=== PATIENT | female | born 1940 | race Caucasian/White ===

== ENCOUNTER 2016-07-18 05:34 | Inpatient (IN) | payer MEDICARE ==
--- NOTE | 2016-07-18 06:13 | ED PDOC ---
HPI: General Adult Time Seen by Provider: 07/18/16 05:39 Chief Complaint (Nursing): Hip Pain Chief Complaint (Provider): left groin pain History Per: Patient History/Exam Limitations: no limitations Onset/Duration Of Symptoms: Hrs (24) Have you had recent travel within the past 21 days to any of the following countries: [place], [place], [place] or [place]?: No Current Symptoms Are (Timing): Still Present Additional Complaint(s): 75yo female with PMHx including previous left humerus and left lower extremity fracture treated 1 year ago at [place] requiring surgery presents to the ED with c/o left groin pain s/p mechanical fall in bathroom 24 hours prior. No LOC or head injury per daughter who was at home. Patient is having trouble bearing weight. Using Aleve and pain patch with no relief. Daughter reports patient's deterioration in mental status including being confused at times with unsteady gait. Refuses to use cane to ambulate and patient become delusional with paranoid thoughts at times. On arrival to ED, patient is alert and disoriented to year. Aware of who president is and is only complaining of groin pain. No headache, chest pain, fever, cough, SOB, n/v/d. Past Medical History Reviewed: Historical Data, Nursing Documentation, Vital Signs Vital Signs: Last Vital Signs Temp 98 F 07/18/16 16:14 Pulse 76 07/18/16 16:14 Resp 20 07/18/16 16:14 BP 148/82 07/18/16 16:14 Pulse Ox 92 L 07/18/16 16:14 - Medical History PMH: No Chronic Diseases Other PMH: left humerus fracture - Surgical History Surgical History: Cholecystectomy Other surgeries: left humerus fracture repair. left knee surgery - Family History Family History: States: No Known Family Hx - Living Arrangements Living Arrangements: With Family (with daughter on 4th floor walkup) - Social History Current smoker - smoking cessation education provided: No Alcohol: None Drugs: Denies - Home Medications Home Medications: Ambulatory Orders Medication Instructions Recorded No Known Home Med 07/18/16 - Allergies Allergies/Adverse Reactions: Allergies Allergy/AdvReac Type Severity Reaction Status Date / Time No Known Allergies Allergy Verified 12/29/15 10:30 Review of Systems ROS Statement: Except As Marked, All Systems Reviewed And Found Negative Constitutional: Negative for: Fever Cardiovascular: Negative for: Chest Pain Respiratory: Negative for: Cough, Shortness of Breath Gastrointestinal: Negative for: Nausea, Vomiting, Diarrhea Musculoskeletal: Positive for: Other (left groin pain ) Neurological: Negative for: Headache Physical Exam - Reviewed Nursing Documentation Reviewed: Yes Vital Signs Reviewed: Yes - Physical Exam Appears: Positive for: Well, No Acute Distress Head Exam: Positive for: ATRAUMATIC, NORMAL INSPECTION, NORMOCEPHALIC Skin: Positive for: Normal Color, Warm, Dry Eye Exam: Positive for: Normal appearance, EOMI, PERRL ENT: Positive for: Normal ENT Inspection Neck: Positive for: Normal, Painless ROM, Supple Cardiovascular/Chest: Positive for: Regular Rate, Rhythm. Negative for: Murmur , Tachycardia Respiratory: Positive for: Normal Breath Sounds. Negative for: Wheezing, Respiratory Distress Gastrointestinal/Abdominal: Positive for: Normal Exam, Bowel Sounds, Soft. Negative for: Tenderness Back: Positive for: Normal Inspection. Negative for: L CVA Tenderness, R CVA Tenderness Extremity: Positive for: Tenderness (left groin tenderness), Other (able to raise leg to 30 degrees and then develops pain ). Negative for: Deformity Neurologic/Psych: Positive for: Alert, Oriented - Laboratory Results Result Diagrams: 07/18/16 06:00 07/18/16 06:00 - ECG O2 Sat by Pulse Oximetry: 99 Pulse Ox Interpretation: Normal (RA) Medical Decision Making Medical Decision Makin: Impression: 75yo female w/ left groin pain in setting of fall and clinical dementia Plan: EKG Labs IVF XR Pelvis, CXR reassess Pt s/o to Dr. Duron at 0700 pending labs and re-eval. Scribe Attestation: Documented by Manuel Ortez acting as a scribe for Johnathan De Jesus MD. Provider Scribe Attestation: All medical record entries made by the Scribe were at my direction and personally dictated by me. I have reviewed the chart and agree that the record accurately reflects my personal performance of the history, physical exam, medical decision making, and the department course for this patient. I have also personally directed, reviewed, and agree with the discharge instructions and disposition. Disposition - Clinical Impression Clinical Impression: Hip pain, Altered mental status - Patient ED Disposition Is Patient to be Admitted: Transfer of Care - Disposition Disposition: Transfer of Care Disposition Time: 07:00 Condition: FAIR Patient Signed Over To: John Duron Handoff Comments: pending labs and re-eval
[2016-07-18 06:19] LABS: BASO % 0.4 % (0.0-2.0); EOS # 0.1 K/uL (0.0-0.7); EOS % 0.5 % (0.0-4.0); HEMATOCRIT 39.8 % (34.0-47.0); LYMPH # 1.3 K/uL (1.0-4.3); LYMPH % 13.6 % (20.0-40.0); MEAN CELL VOLUME 89.4 fl (81.0-99.0); MEAN CORPUSCULAR HEMOGLOBIN 29.6 pg (27.0-31.0); MEAN CORPUSCULAR HGB CONC 33.1 g/dL (33.0-37.0); MEAN PLATELET VOLUME 7.7 fl (7.2-11.7); MONO # 0.8 K/uL (0.0-0.8); MONO % 7.7 % (0.0-10.0); NEUT # 7.5 K/uL (1.8-7.0); NEUT % 77.8 % (50.0-75.0); RED CELL DISTRIBUTION WIDTH 15.5 % (11.5-14.5); WHITE BLOOD COUNT 9.7 K/uL (4.8-10.8)
[2016-07-18 06:44] LABS: RBC URINE 7 /hpf (0-3); URINE BILIRUBIN NEGATIVE (NEGATIVE); URINE BLOOD NEGATIVE (NEGATIVE); URINE COLOR YELLOW (YELLOW); URINE GLUCOSE (UA) NEG (Normal); URINE KETONE NEGATIVE (NEGATIVE); URINE LEUKOCYTE ESTERASE TRACE Leu/uL (Negative); URINE PROTEIN NEGATIVE (NEGATIVE); URINE UROBILINOGEN 0.2-1.0 mg/dL (0.2-1.0); WBC URINE 2 /hpf (0-5)
--- NOTE | 2016-07-18 07:02 | ED PDOC ---
- Laboratory Results Result Diagrams: 07/18/16 06:00 07/18/16 06:00 - ECG O2 Sat by Pulse Oximetry: 99 Medical Decision Making Medical Decision Making: Time: 0700 Patient signed out by Dr. De Jeuss pending labs and re-evaluation Scribe Attestation: Documented by Ruby Ramirez acting as a scribe for John Duron MD, MD Scribe Attestation: All medical record entries made by the Scribe were at my direction and personally dictated by me. I have reviewed the chart and agree that the record accurately reflects my personal performance of the history, physical exam, medical decision making, and the department course for this patient. I have also personally directed, reviewed, and agree with the discharge instructions and disposition. Disposition - Clinical Impression Clinical Impression: Hip pain, Altered mental status - POA Present On Arrival: None - Disposition Disposition: Hospitalized as Observation Patient Disposition Time: 12:00 Condition: STABLE ED OBSERVATION Date of observation admission: 07/18/16 Time of observation admission: 07:30 - Observation admission statement Patient is being placed in observation because:: Pending labs and re-evaluation - Progress Note Progress Note: 07/18/16 12:00 Spoke with daughter in refards to patient, states she does not feel comfortable with taking her home. Notes she lives alone with a history of frequent fall. Dr. Helms contacted, recommends admission. Case discussed with Dr. Malone who will give admission ordes. U/S findings discussed with patient and family. Advised Dr. Malone of patients need for pain medication and muscle relaxers at night.
[2016-07-18 08:12] LABS: ALB/GLOB RATIO 1.1 (1.0-2.1); ALKALINE PHOSPHATASE 108 U/L (38-126); ALT/SGPT 20 U/L (9-52); AST/SGOT 24 U/L (14-36); BILIRUBIN,TOTAL 0.5 mg/dl (0.2-1.3); BLOOD UREA NITROGEN 12 mg/dl (7-17); CALCIUM 9.8 mg/dL (8.4-10.2); CARBON DIOXIDE 25 mmol/L (22-30); CHLORIDE 105 mmol/L (98-107); GFR AFRICAN-AMERICAN > 60; GLUCOSE,RANDOM 142 mg/dL (65-105); SODIUM 144 mmol/l (132-148)
--- NOTE | 2016-07-18 08:16 | CT ---
PROCEDURE: CT HEAD WITHOUT CONTRAST. HISTORY: AMS COMPARISON: None available. TECHNIQUE: Axial computed tomography images were obtained through the head/brain without intravenous contrast. Radiation dose: Total exam DLP = 874.06 mGy-cm. FINDINGS: HEMORRHAGE: No intracranial hemorrhage. BRAIN: No mass effect or edema. Old right frontal encephalomalacia. Mild diffuse atrophy. Moderate periventricular lucency with patchy deep and subcortical white matter lucency consistent with age related microvascular ischemic change. No evidence of acute infarct. VENTRICLES: Unremarkable. No hydrocephalus. CALVARIUM: Unremarkable. PARANASAL SINUSES: Unremarkable as visualized. No significant inflammatory changes. MASTOID AIR CELLS: Nonspecific left mastoid effusion. No bony coalescence. Extensive soft tissue density in left external auditory canal, most likely cerumen. Please correlate with direct inspection. OTHER FINDINGS: None. IMPRESSION: No evidence of acute infarct. No intracranial hemorrhage or mass. Old right frontal encephalomalacia. Age related involutional changes. Soft tissue density in left external auditory canal most likely represents cerumen. Please correlate. Nonspecific left mastoid effusion.
--- NOTE | 2016-07-18 08:26 | CT ---
PROCEDURE: CT pelvis HISTORY: fall; possible pubic fracture COMPARISON: Not available TECHNIQUE: 2.5 mm contiguous axial sections were acquired through the pelvis. Sagittal and coronal images were reformatted from the axial scan. FINDINGS: There is no evidence of pelvic fracture. The pubic symphysis, superior and inferior pubic rami, acetabulum and femoral head/ neck are intact bilaterally. There is no sacral fracture. The sacroiliac joints are intact. There is a heterogeneous right adnexal mass measuring 6.7 x 3.3 x 3.2 cm. Further evaluation with pelvic ultrasound examination is advised to include transvaginal ultrasound. There is a coarsely calcified left-sided uterine fibroid. There is no ascites. There is no other pelvic mass identified. There is no pelvic lymphadenopathy. The urinary bladder is unremarkable. There are no abnormal bowel loops. IMPRESSION: No osseous fracture. 6.7 cm right adnexal mass. Recommend further evaluation with pelvic ultrasound examination to include transvaginal technique. Calcified uterine fibroid. No additional abnormality.
[2016-07-18 08:51] LABS: THYROID STIMULATING HORMONE 0.99 mIU/ML (0.46-4.68)
--- NOTE | 2016-07-18 11:37 | US ---
HISTORY: eval for adnexal mass found on CT COMPARISON: CT pelvis from 07/18/2016 TECHNIQUE: Transabdominal and transvaginal pelvic ultrasound was performed. FINDINGS: UTERUS: Measures 6.8 x 3.7 x 2.5 cm. Normal in size and appearance. There is a 2.5 x 1.4 cm calcified fibroid in the fundus to the left. ENDOMETRIUM: Measures 3.0 mm in diameter. Normal appearance without focal mass. CERVIX: No cervical abnormality identified. RIGHT OVARY: There is a 4.3 x 6.3 x 2.9 cm multilocular cystic mass in the right adnexa without significant flow on color Doppler imaging. LEFT OVARY: Measures 3.3 x 2.3 x 2.2 cm. No solid mass. Normal flow. There is a simple cyst measuring 1.9 x 1.6 x 1.4 cm. FREE FLUID: No significant free fluid noted. OTHER FINDINGS: None. IMPRESSION: 1. Large multilocular cystic mass in the right adnexa measuring 4.3 x 6.3 x 2.9 cm. The ovary is not distinctly identified however this mass could be ovarian in etiology. The differential considerations include complicated/septated cyst, cystadenoma and cystadenocarcinoma. Given postmenopausal status enlarged size , gynecologic consult and follow-up imaging with MRI if clinically indicated is advised. 2. 2.5 cm calcified fibroid in the fundus of the uterus to the left.
--- NOTE | 2016-07-18 12:14 | RAD ---
PROCEDURE: CHEST RADIOGRAPH, 1 VIEW HISTORY: admit COMPARISON: None available. FINDINGS: LUNGS: The lungs are well inflated. There is no focal consolidation. PLEURA: No pneumothorax or pleural fluid seen. CARDIOVASCULAR: The heart is normal in size. OSSEOUS STRUCTURES: There are multiple old fracture deformities in the left upper and mid posterior ribs. VISUALIZED UPPER ABDOMEN: Normal. OTHER FINDINGS: A retrocardiac round opacity likely represents a sliding hiatal hernia. There is eventration of the right hemidiaphragm pain IMPRESSION: No active pulmonary disease.
--- NOTE | 2016-07-18 12:53 | CP.PCM.HP ---
History of Present Illness - History of Present Illness History of Present Illness: Pt is a 75y/ o female with no significant chronic medical history but a previous left hip fracture treated 1 year ago at [place] requiring surgery and strong family history of dementia who presented to the ED with c/o left groin pain s/p mechanical fall in bathroom 24 hours prior. No LOC or head injury per daughter who was at home. Patient is having trouble bearing weight. Using Aleve and pain patch with no relief. Daughter reports patient's deterioration in mental status including being confused at times with unsteady gait. Refuses to use cane to ambulate and patient become delusional with paranoid thoughts at times. On arrival to ED, patient is alert and disoriented to year. Aware of who president is and is only complaining of groin pain. No headache, chest pain, fever, cough, SOB, n/v/d. Pt seen and evaluated at ED this morning, she appears pleasant, states her hip has been bothering a while and thinks maybe she needs a muscle relaxant because she never tried that and the tramadol they gave her is too strong for her. She is at the moment at her baseline per her daughter, but she has had moments of paranoia and being very forgetful lately Present on Admission - Present on Admission Any Indicators Present on Admission: No Review of Systems - Review of Systems All systems: reviewed and no additional remarkable complaints except Review of Systems: Per HPI Past Patient History - Past Social History Alcohol: None Drugs: Denies - PSYCHIATRIC Hx Substance Use: No - SURGICAL HISTORY Hx Cholecystectomy: Yes - ANESTHESIA Hx Anesthesia: Yes Hx Anesthesia Reactions: No Hx Malignant Hyperthermia: No Meds Allergies/Adverse Reactions: Allergies Allergy/AdvReac Type Severity Reaction Status Date / Time No Known Allergies Allergy Verified 12/29/15 10:30 Physical Exam - Head Exam Head Exam: NORMAL INSPECTION - Eye Exam Eye Exam: Normal appearance, PERRL Pupil Exam: NORMAL ACCOMODATION - ENT Exam ENT Exam: Mucous Membranes Moist - Respiratory Exam Respiratory Exam: Clear to Auscultation Bilateral, NORMAL BREATHING PATTERN. absent: Rhonchi, Wheezes - Cardiovascular Exam Cardiovascular Exam: REGULAR RHYTHM, +S1, +S2 - GI/Abdominal Exam GI & Abdominal Exam: Normal Bowel Sounds, Soft. absent: Tenderness - Extremities Exam Extremities exam: Negative for: calf tenderness Additional comments: tenderness on palpation of left hip, no bruising noted - Neurological Exam Neurological exam: Alert, CN II-XII Intact, Oriented x3 - Psychiatric Exam Psychiatric exam: Normal Affect - Skin Skin Exam: Normal Color Results - Vital Signs Recent Vital Signs: Last Vital Signs Temp 98.4 F 07/18/16 12:36 Pulse 88 07/18/16 12:36 Resp 16 07/18/16 12:36 BP 152/87 H 07/18/16 12:36 Pulse Ox 97 07/18/16 12:36 - Labs Result Diagrams: 07/18/16 06:00 07/18/16 06:00 Assessment & Plan - Assessment and Plan (Free Text) Assessment: 75 y/o female with previous history of left hip replacement surgery being admitted for left hip pain, and symptoms suggestive of early dementia Plan: 1. left Hip pain no fracture seen on imaging pain manegement as ordered 2. Incidental finding of ovarian mass on CT and US Not symptomatic Gift Officer Consulted Most likely need outpatient work up 3.forgetfullnes, hallucinations evaluated by crisis underlying psychiatric disorder ruled out suggestive of early dementia monitor 4. Social issues Needs case advocate to assist in obtaining home health aid 5. Diet- heart healthy 6. DVT prophylaxis: Lovenox SC 40mg daily
[2016-07-18] MEDS ORDERED: Influenza Vaccine(5yr & older) 0.5 ML/45 MCG IM ONE (14:24)
[2016-07-18] MEDS ORDERED: Pneumococcal 23-Valent Vaccine IM ONE (14:24)
--- NOTE | 2016-07-18 15:14 | RAD ---
PROCEDURE: Radiographs of the pelvis. HISTORY: Pain s/p fall COMPARISON: None. FINDINGS: BONES: There is no acute fracture or bone destruction. Bone alignment is normal. There is diffuse bone demineralization. JOINTS: There is mild degenerative osteoarthrosis in the hip joints. The sacroiliac joints are normal. There is no evidence of significant osteitis pubis. OTHER FINDINGS: None. IMPRESSION: No acute displaced fracture or dislocation. Please note occult fractures cannot be excluded on plain radiographs. If there is a persistent clinical concern, an MRI of the hip may be performed for further evaluation.
--- NOTE | 2016-07-18 18:53 | CARD ---
APPROVED REPORT EKG Measurement Heart [id number] <Conclusion> Normal sinus rhythm Normal ECG
[2016-07-18 22:49] LABS: FOLATE 12.6 ng/mL
[2016-07-19] MEDS: Enoxaparin 40 mg Syringe SC SCH (08:43)
--- NOTE | 2016-07-19 11:12 | CP.PCM.PN ---
Subjective - Date & Time of Evaluation Date of Evaluation: 07/19/16 Time of Evaluation: 10:20 - Subjective Subjective: Pt seen and examined at bedside this morning, reports severe pain in lumbar region and hip pain, pain medication helped a little bit but did not resolve it completely. other than that pt is doing ok Objective - Vital Signs/Intake and Output Vital Signs (last 24 hours): Temp Pulse Resp BP Pulse Ox 98.3 F 95 H 18 124/91 H 95 07/19/16 08:09 07/19/16 08:09 07/19/16 08:09 07/19/16 08:09 07/19/16 08:09 - Medications Medications: Current Medications Acetaminophen (Tylenol 325mg Tab) 650 mg PO Q6 PRN PRN Reason: Headache Cyclobenzaprine HCl (Flexeril) 10 mg PO HS MELI Last Admin: 07/18/16 21:48 Dose: 10 mg Enoxaparin Sodium (Lovenox) 40 mg SC DAILY MELI PRN Reason: Protocol Last Admin: 07/19/16 08:43 Dose: 40 mg Ibuprofen (Motrin Tab) 600 mg PO Q6 PRN PRN Reason: Pain, severe (8-10) Last Admin: 07/19/16 09:47 Dose: 600 mg - Labs Labs: PT 10.0 SECONDS (9.6-11.2) 07/18/16 06:00 INR 0.96 (0.92-1.08) 07/18/16 06:00 APTT 23.0 SECONDS (23.3-32.5) L 07/18/16 06:00 - Constitutional Appears: Non-toxic, No Acute Distress - Head Exam Head Exam: NORMOCEPHALIC - Eye Exam Eye Exam: Normal appearance, PERRL Pupil Exam: NORMAL ACCOMODATION - ENT Exam ENT Exam: Mucous Membranes Moist - Respiratory Exam Respiratory Exam: Clear to Ausculation Bilateral, NORMAL BREATHING PATTERN. absent: Rhonchi, Wheezes - Cardiovascular Exam Cardiovascular Exam: REGULAR RHYTHM, +S1, +S2 - GI/Abdominal Exam GI & Abdominal Exam: Soft, Normal Bowel Sounds. absent: Tenderness - Extremities Exam Extremities Exam: absent: Calf Tenderness, Joint Swelling Additional comments: right hip tender to palpation - Back Exam Back Exam: tenderness - Neurological Exam Neurological Exam: Alert, Awake, CN II-XII Intact, Oriented x3 Assessment and Plan - Assessment and Plan (Free Text) Assessment: 75 y/o female with previous history of left hip replacement surgery being admitted for left hip pain, and symptoms suggestive of early dementia Plan: 1. Bilateral Hip pain with associated lumbar pain Xray of lumbar and hip ordered pain management as ordered 2. Incidental finding of ovarian mass on CT and US Not symptomatic Engineering Inspection Assistant Consulted - awaiting recommendation Most likely need outpatient work up 3.forgetfullnes, hallucinations evaluated by crisis underlying psychiatric disorder ruled out suggestive of early dementia monitor 4. Social issues- block and case maker note reviewed thank you for your input 5. Diet- heart healthy 6. DVT prophylaxis: Lovenox SC 40mg daily
--- NOTE | 2016-07-19 14:13 | RAD ---
PROCEDURE: Radiographs of the Lumbar Spine. HISTORY: reports sever pain in lumbar area , hx of falling COMPARISON: No prior. FINDINGS: BONES: Lumbar dextroscoliosis. Vertebral bodies maintained in height. Transverse processes and posterior elements appear intact. DISC SPACES: Narrowing of L4-5 disc space consistent with degenerative disc disease. Remaining disc spaces are maintained in height. OTHER FINDINGS: Incidentally noted globular calcification in pelvis likely related to calcified uterine fibroid. IMPRESSION: Degenerative disc disease at L4-5. Dextroscoliosis.
--- NOTE | 2016-07-19 14:18 | RAD ---
PROCEDURE: Bilateral hips and pelvis HISTORY: reports right hip pain, s/p fall COMPARISON: 07/18/2016 TECHNIQUE: AP pelvis and frogleg pelvis. FINDINGS: There is no evidence of fracture. There is early osteoarthritis of both hips. There is a globular pelvic calcification most likely related to a calcified uterine fibroid. IMPRESSION: No acute fracture. Mild bilateral osteoarthritis.
[2016-07-19 16:09] VITALS: RESP 20
[2016-07-19 19:45] VITALS: O2SAT 98
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
[2016-07-20 08:50] VITALS: BP 156/86; PULSE 92; TEMP 98.2
[2016-07-20] MEDS: Enoxaparin 40 mg Syringe SC SCH (08:52)
--- NOTE | 2016-07-20 10:14 | CP.PCM.DIS ---
Provider - Provider Date of Admission: 07/19/16 14:47 Attending physician: Kendell Umanzor MD Primary care physician: Kendell Umanzor MD Hospital Course - Lab Results Lab Results: Most Recent Lab Values WBC 9.7 K/uL (4.8-10.8) 07/18/16 06:00 RBC 4.44 Mil/uL (3.80-5.20) 07/18/16 06:00 Hgb 13.1 g/dL (12.0-16.0) 07/18/16 06:00 Hct 39.8 % (34.0-47.0) 07/18/16 06:00 MCV 89.4 fl (81.0-99.0) 07/18/16 06:00 MCH 29.6 pg (27.0-31.0) 07/18/16 06:00 MCHC 33.1 g/dL (33.0-37.0) 07/18/16 06:00 RDW 15.5 % (11.5-14.5) H 07/18/16 06:00 Plt Count 261 K/uL (130-400) 07/18/16 06:00 MPV 7.7 fl (7.2-11.7) 07/18/16 06:00 Neut % (Auto) 77.8 % (50.0-75.0) H 07/18/16 06:00 Lymph % (Auto) 13.6 % (20.0-40.0) L 07/18/16 06:00 [place] % (Auto) 7.7 % (0.0-10.0) 07/18/16 06:00 Eos % (Auto) 0.5 % (0.0-4.0) 07/18/16 06:00 Baso % (Auto) 0.4 % (0.0-2.0) 07/18/16 06:00 Neut # 7.5 K/uL (1.8-7.0) H 07/18/16 06:00 Lymph # 1.3 K/uL (1.0-4.3) 07/18/16 06:00 [place] # 0.8 K/uL (0.0-0.8) 07/18/16 06:00 Eos # 0.1 K/uL (0.0-0.7) 07/18/16 06:00 Baso # 0.0 K/uL (0.0-0.2) 07/18/16 06:00 PT 10.0 SECONDS (9.6-11.2) 07/18/16 06:00 INR 0.96 (0.92-1.08) 07/18/16 06:00 APTT 23.0 SECONDS (23.3-32.5) L 07/18/16 06:00 Sodium 144 mmol/l (132-148) 07/18/16 06:00 Potassium 4.0 MMOL/L (3.6-5.0) 07/18/16 06:00 Chloride 105 mmol/L (98-107) 07/18/16 06:00 Carbon Dioxide 25 mmol/L (22-30) 07/18/16 06:00 Anion Gap 18 (10-20) 07/18/16 06:00 BUN 12 mg/dl (7-17) 07/18/16 06:00 Creatinine 0.6 mg/dL (0.7-1.2) L 07/18/16 06:00 Est GFR ( Amer) > 60 07/18/16 06:00 Est GFR (Non-Af Amer) > 60 07/18/16 06:00 POC Glucose (mg/dL) 105 mg/dL (65-110) 07/20/16 05:58 Random Glucose 142 mg/dL (65-105) H 07/18/16 06:00 Calcium 9.8 mg/dL (8.4-10.2) 07/18/16 06:00 Total Bilirubin 0.5 mg/dl (0.2-1.3) 07/18/16 06:00 AST 24 U/L (14-36) 07/18/16 06:00 ALT 20 U/L (9-52) 07/18/16 06:00 Alkaline Phosphatase 108 U/L (38-126) 07/18/16 06:00 Total Protein 7.0 G/DL (6.3-8.2) 07/18/16 06:00 Albumin 3.7 g/dL (3.5-5.0) 07/18/16 06:00 Globulin 3.3 gm/dL (2.2-3.9) 07/18/16 06:00 Albumin/Globulin Ratio 1.1 (1.0-2.1) 07/18/16 06:00 Vitamin B12 > 1000 pg/mL (239-931) H 07/18/16 06:00 Folate 12.6 ng/mL 07/18/16 06:00 TSH 3rd Generation 0.99 mIU/ML (0.46-4.68) 07/18/16 06:00 Urine Color Yellow (YELLOW) 07/18/16 06:11 Urine Clarity Clear (Clear) 07/18/16 06:11 Urine pH 7.0 (5.0-8.0) 07/18/16 06:11 Ur Specific [place] 1.010 (1.003-1.030) 07/18/16 06:11 Urine Protein Negative mg/dL (NEGATIVE) 07/18/16 06:11 Urine Glucose (UA) Neg mg/dL (Normal) 07/18/16 06:11 Urine Ketones Negative mg/dL (NEGATIVE) 07/18/16 06:11 Urine Blood Negative (NEGATIVE) 07/18/16 06:11 Urine Nitrate Negative (NEGATIVE) 07/18/16 06:11 Urine Bilirubin Negative (NEGATIVE) 07/18/16 06:11 Urine Urobilinogen 0.2-1.0 mg/dL (0.2-1.0) 07/18/16 06:11 Ur Leukocyte Esterase Trace [place]/uL (Negative) 07/18/16 06:11 Urine RBC (Auto) 7 /hpf (0-3) H 07/18/16 06:11 Urine Microscopic WBC 2 /hpf (0-5) 07/18/16 06:11 RPR Nonreactive (NONREACTIVE) 07/18/16 06:00 - Hospital Course Hospital Course: This leroy 75 y/o female admitted for intractable pelvic and back pain and noted to have an right adnexal mass. Discharge Exam - Head Exam Head Exam: ATRAUMATIC Discharge Plan - Follow Up Plan Condition: FAIR Disposition: HOME/ ROUTINE Referrals: Kendell Umanzor MD [Primary Care Provider] -
== END 2016-07-20 13:14 | disposition home or self-care (01) | DRG 556 ==
LOC: H.ER 05:34 → H.ERHOLD 12:03 → H.MEDSURG1 13:08 → OBSVTOIN 07-19 14:47
PROVIDERS: ADMIT Family Medicine; ATTEND Family Medicine
PROC: 3E0234Z Introduction of Serum, Toxoid and Vaccine into Muscle, Percutaneous Approach (ICD-10-PCS; principal; 2016-07-18)
DX: M25.552 Pain in left hip (principal); F03.90 Unspecified dementia, unspecified severity, without behavioral disturbance, psychotic disturbance, mood disturbance, and anxiety; W18.30XA Fall on same level, unspecified, initial encounter; M25.551 Pain in right hip; Z96.642 Presence of left artificial hip joint; N95.9 Unspecified menopausal and perimenopausal disorder; M54.5 Low back pain; Z23 Encounter for immunization; N83.9 Noninflammatory disorder of ovary, fallopian tube and broad ligament, unspecified; Z91.81 History of falling; Y93.9 Activity, unspecified; Y92.002 Bathroom of unspecified non-institutional (private) residence as the place of occurrence of the external cause

== ENCOUNTER 2017-11-15 12:29 | Inpatient (IN) | payer MEDICARE ==
[2017-11-15 12:29] VITALS: BMI 25.1
[2017-11-15] MEDS ORDERED: Oxycodone/Acetaminophen 5/325 mg Tab PO STA (12:59)
--- NOTE | 2017-11-15 13:29 | ED PDOC ---
HPI: Trauma/Fall - HPI Time Seen by Provider: 11/15/17 12:55 Chief Complaint (Nursing): Trauma Chief Complaint (Provider): Trauma History Per: Patient History/Exam Limitations: no limitations Onset/Duration Of Symptoms: Hrs Location Of Injury: Left: Hip Additional Complaint(s): 77 y/o female presents to the ED complaining of left hip pain, onset a couple hours prior to arrival. Patient states she tripped and fell coming out of a [employer] and landed on her left side. Patient was able to ambulate home without assistance. Patient reports she has been having radiation therapy for breast cancer. PMD: Altaf Guardado Past Medical History Reviewed: Historical Data, Nursing Documentation, Vital Signs Vital Signs: Last Vital Signs Temp 98 F 11/15/17 12:43 Pulse 87 11/15/17 12:43 Resp 18 11/15/17 12:43 BP 121/80 11/15/17 12:43 Pulse Ox 95 11/15/17 12:43 - Medical History PMH: Denies: Chronic Kidney Disease Other PMH: Breast Cancer - Surgical History Surgical History: Cholecystectomy - Family History Family History: States: Unknown Family Hx - Home Medications Home Medications: Ambulatory Orders Medication Instructions Recorded Acyclovir [Zovirax] 400 mg PO QID 11/15/17 Cyclobenzaprine [Flexeril] 5 mg PO DAILY 11/15/17 Donepezil HCl [Aricept] 10 mg PO HS 11/15/17 - Allergies Allergies/Adverse Reactions: Allergies Allergy/AdvReac Type Severity Reaction Status Date / Time No Known Allergies Allergy Verified 12/29/15 10:30 Review of Systems ROS Statement: Except As Marked, All Systems Reviewed And Found Negative Musculoskeletal: Positive for: Other (left sided hip pain ) Physical Exam - Reviewed Nursing Documentation Reviewed: Yes Vital Signs Reviewed: Yes - Physical Exam Appears: Positive for: In Acute Distress (moderate painful distress) Head Exam: Positive for: ATRAUMATIC, NORMOCEPHALIC Skin: Positive for: Normal Color, Warm, Dry Eye Exam: Positive for: Normal appearance, EOMI, PERRL Neck: Positive for: Normal, Painless ROM Cardiovascular/Chest: Positive for: Regular Rate, Rhythm. Negative for: Murmur Respiratory: Positive for: Normal Breath Sounds. Negative for: Respiratory Distress Extremity: Positive for: Tenderness (to the left lateral hip ). Negative for: Normal ROM (decreased ROM secondary to pain ) Neurologic/Psych: Positive for: Alert, Oriented (x3), Other (Neurovascular Sensations Intact). Negative for: Motor/Sensory Deficits - Laboratory Results Result Diagrams: 11/16/17 06:45 11/16/17 06:45 - ECG O2 Sat by Pulse Oximetry: 95 (RA) Pulse Ox Interpretation: Normal Medical Decision Making Medical Decision Making: Time: 1259 Impression: Left Hip Injury Plan: -- Percocet 5/325 mg 1 tab PO -- Hip Min 2V w/ Pelvis LT XR -- Pelvis One View XR Time: 1503 -- Case discussed with Dr. Block who requests a CT and Operating Room on Friday. Scribe Attestation: Documented by David Huertas acting as a scribe for Dr. Oralia Altamirano MD. Provider Scribe Attestation: All medical record entries made by the Scribe were at my direction and personally dictated by me. I have reviewed the chart and agree that the record accurately reflects my personal performance of the history, physical exam, medical decision making, and the department course for this patient. I have also personally directed, reviewed, and agree with the discharge instructions and disposition. Disposition - Clinical Impression Clinical Impression: Femoral neck fracture - Patient ED Disposition Is Patient to be Admitted: Yes - Disposition Disposition Time: 15:02 Condition: STABLE - Pt Status Changed To: Hospital Disposition Of: Inpatient - Admit Certification Admit to Inpatient:: After my assessment, the patient will require hospitalization for at least two midnights. This is because of the severity of symptoms shown, intensity of services needed, and/or the medical risk in this patient being treated as an outpatient. - POA Present On Arrival: Falls Or Trauma
[2017-11-15] MEDS ORDERED: Oxycodone/Acetaminophen 5/325 mg Tab ONE (13:47)
[2017-11-15 14:47] LABS: BASO % 0.4 % (0.0-2.0); EOS % 0.3 % (0.0-4.0); HEMOGLOBIN 10.8 g/dL (12.0-16.0); LYMPH # 1.1 K/uL (1.0-4.3); LYMPH % 11.9 % (20.0-40.0); MEAN CELL VOLUME 87.5 fl (81.0-99.0); MEAN CORPUSCULAR HEMOGLOBIN 29.2 pg (27.0-31.0); MEAN CORPUSCULAR HGB CONC 33.4 g/dL (33.0-37.0); MEAN PLATELET VOLUME 7.8 fl (7.2-11.7); MONO # 0.7 K/uL (0.0-0.8); MONO % 6.9 % (0.0-10.0); NEUT # 7.7 K/uL (1.8-7.0); NEUT % 80.5 % (50.0-75.0); RBC 3.68 Mil/uL (3.80-5.20); RED CELL DISTRIBUTION WIDTH 15.7 % (11.5-14.5); WHITE BLOOD COUNT 9.6 K/uL (4.8-10.8)
[2017-11-15 15:03] LABS: ALB/GLOB RATIO 1.2 (1.0-2.1); ALBUMIN 3.7 g/dL (3.5-5.0); ALT/SGPT 26 U/L (9-52); AST/SGOT 25 U/L (14-36); BLOOD UREA NITROGEN 10 mg/dl (7-17); CALCIUM 9.3 mg/dL (8.4-10.2); GFR AFRICAN-AMERICAN > 60; GFR NON-AFRICAN AMERICAN > 60
[2017-11-15 15:07] LABS: INR 0.9 (0.9-1.2)
[2017-11-15 15:08] LABS: PARTIAL THROMBOPLASTIN TIME 31.3 Seconds (25.6-37.1)
--- NOTE | 2017-11-15 18:00 | RAD ---
Date of service: 11/15/2017 HISTORY: Admission COMPARISON: Comparison chest 07/18/2017 FINDINGS: LUNGS: No active pulmonary disease. PLEURA: No significant pleural effusion identified, no pneumothorax apparent. CARDIOVASCULAR: Normal. OSSEOUS STRUCTURES: Re- demonstrated are several old healed left posterior rib fracture deformities VISUALIZED UPPER ABDOMEN: Re- demonstrated are metallic surgical clips right upper quadrant of the abdomen consistent prior cholecystectomy. OTHER FINDINGS: None. IMPRESSION: No acute cardiopulmonary disease.
--- NOTE | 2017-11-15 18:05 | RAD ---
PROCEDURE: Left Hip X-ray Radiographs. Comparison made with pelvis both hip joints 07/19/2016 HISTORY: L hip pain COMPARISON: None. FINDINGS: BONES: Subcapital fracture of the left hip with superior displacement of the distal of large femoral fragment with varus angulation. JOINTS: Left femoral head is appropriately located within the left acetabulum SOFT TISSUES: There is a elliptical shaped calcification overlying the right upper true pelvis that may represent calcified injection granulomata. There also a cluster of calcifications seen overlying the left left mid sacrum that could represent calcified fibroids. OTHER FINDINGS: None. IMPRESSION: Subcapital fracture of the left hip with superior displacement of the distal of large femoral fragment with varus angulation. Note this report was placed in PA review folder for followup
[2017-11-16 06:58] LABS: SQUAMOUS EPITHIAL < 1 /hpf (0-5); URINE BILIRUBIN NEGATIVE (NEGATIVE); URINE BLOOD SMALL (NEGATIVE); URINE CLARITY CLEAR (Clear); URINE GLUCOSE (UA) NEG (Normal); URINE LEUKOCYTE ESTERASE NEG Leu/uL (Negative); URINE PROTEIN NEGATIVE (NEGATIVE); URINE UROBILINOGEN 0.2-1.0 mg/dL (0.2-1.0)
[2017-11-16 07:01] LABS: URINE COLOR YELLOW (YELLOW)
[2017-11-16 07:18] LABS: HEMOGLOBIN 10.7 g/dL (12.0-16.0); MEAN CELL VOLUME 86.1 fl (81.0-99.0); MEAN CORPUSCULAR HEMOGLOBIN 29.4 pg (27.0-31.0); MEAN CORPUSCULAR HGB CONC 34.2 g/dL (33.0-37.0); RBC 3.65 Mil/uL (3.80-5.20); RED CELL DISTRIBUTION WIDTH 15.8 % (11.5-14.5); WHITE BLOOD COUNT 6.5 K/uL (4.8-10.8)
[2017-11-16 07:48] LABS: ALB/GLOB RATIO 1.1 (1.0-2.1); ALBUMIN 3.4 g/dL (3.5-5.0); ALT/SGPT 19 U/L (9-52); AST/SGOT 27 U/L (14-36); BLOOD UREA NITROGEN 8 mg/dl (7-17); CALCIUM 9.2 mg/dL (8.4-10.2); GFR AFRICAN-AMERICAN > 60; GFR NON-AFRICAN AMERICAN > 60
--- NOTE | 2017-11-16 09:28 | CP.PCM.CON ---
History of Present Illness - History of Present Illness History of Present Illness: patient seen/examined. full consult to follow. patient has a femoral neck fracture and requires surgery. EKG normal no angina or heart failure. no cardiovascular contraindication to the planned surgery. Past Patient History - Infectious Disease Hx of Infectious Diseases: None - Past Medical History & Family History Past Medical History?: Yes - Past Social History Smoking Status: Former Smoker - CARDIAC Hx Cardiac Disorders: No - PULMONARY Hx Pneumonia: Yes - NEUROLOGICAL Hx Neurological Disorder: Yes Hx Dementia: Yes - HEENT Hx HEENT Problems: No - RENAL Hx Chronic Kidney Disease: No - ENDOCRINE/METABOLIC Hx Endocrine Disorders: No - HEMATOLOGICAL/ONCOLOGICAL Hx Blood Disorders: Yes Hx Cancer: Yes (left breast) - INTEGUMENTARY Hx Dermatological Problems: No - MUSCULOSKELETAL/RHEUMATOLOGICAL Hx Falls: Yes - GASTROINTESTINAL Hx Gastrointestinal Disorders: No - GENITOURINARY/GYNECOLOGICAL Hx Genitourinary Disorders: No - PSYCHIATRIC Hx Psychophysiologic Disorder: No Hx Substance Use: No - SURGICAL HISTORY Hx Cholecystectomy: Yes - ANESTHESIA Hx Anesthesia: Yes Hx Anesthesia Reactions: No Hx Malignant Hyperthermia: No Meds Allergies/Adverse Reactions: Allergies Allergy/AdvReac Type Severity Reaction Status Date / Time No Known Allergies Allergy Verified 12/29/15 10:30 - Medications Medications: Current Medications Morphine Sulfate (Morphine) 2 mg IVP Q6 PRN PRN Reason: Pain, severe (8-10) Last Admin: 11/15/17 23:22 Dose: 2 mg Results - Vital Signs Recent Vital Signs: Last Vital Signs Temp 97.7 F 11/16/17 08:06 Pulse 78 11/16/17 08:06 Resp 19 11/16/17 08:06 BP 166/87 H 11/16/17 08:06 Pulse Ox 100 11/16/17 08:06 - Labs Result Diagrams: 11/16/17 06:45 11/16/17 06:45 Labs: Laboratory Results - last 24 hr 11/15/17 11/15/17 11/15/17 14:40 14:40 14:40 WBC 9.6 RBC 3.68 L Hgb 10.8 L D Hct 32.2 L MCV 87.5 MCH 29.2 MCHC 33.4 RDW 15.7 H Plt Count 216 MPV 7.8 Neut % (Auto) 80.5 H Lymph % (Auto) 11.9 L [place] % (Auto) 6.9 Eos % (Auto) 0.3 Baso % (Auto) 0.4 Neut # (Auto) 7.7 H Lymph # (Auto) 1.1 [place] # (Auto) 0.7 Eos # (Auto) 0.0 Baso # (Auto) 0.0 PT 10.0 INR 0.9 APTT 31.3 Sodium 137 Potassium 3.8 Chloride 104 Carbon Dioxide 25 Anion Gap 12 BUN 10 Creatinine 0.7 Est GFR ( Amer) > 60 Est GFR (Non-Af Amer) > 60 Random Glucose 109 H Calcium 9.3 Total Bilirubin 0.5 AST 25 ALT 26 Alkaline Phosphatase 136 H Total Protein 7.0 Albumin 3.7 Globulin 3.2 Albumin/Globulin Ratio 1.2 Urine Color Urine Clarity Urine pH Ur Specific [place] Urine Protein Urine Glucose (UA) Urine Ketones Urine Blood Urine Nitrate Urine Bilirubin Urine Urobilinogen Ur Leukocyte Esterase Urine Microscopic WBC Ur Squamous Epith Cells Blood Type Antibody Screen BBK History Checked 11/15/17 11/16/17 11/16/17 14:40 06:45 06:45 WBC 6.5 RBC 3.65 L Hgb 10.7 L Hct 31.4 L MCV 86.1 MCH 29.4 MCHC 34.2 RDW 15.8 H Plt Count 189 MPV Neut % (Auto) Lymph % (Auto) [place] % (Auto) Eos % (Auto) Baso % (Auto) Neut # (Auto) Lymph # (Auto) [place] # (Auto) Eos # (Auto) Baso # (Auto) PT INR APTT Sodium 138 Potassium 4.0 Chloride 104 Carbon Dioxide 26 Anion Gap 12 BUN 8 Creatinine 0.6 L Est GFR ( Amer) > 60 Est GFR (Non-Af Amer) > 60 Random Glucose 111 H Calcium 9.2 Total Bilirubin 0.8 AST 27 ALT 19 Alkaline Phosphatase 110 Total Protein 6.5 Albumin 3.4 L Globulin 3.1 Albumin/Globulin Ratio 1.1 Urine Color Urine Clarity Urine pH Ur Specific [place] Urine Protein Urine Glucose (UA) Urine Ketones Urine Blood Urine Nitrate Urine Bilirubin Urine Urobilinogen Ur Leukocyte Esterase Urine Microscopic WBC Ur Squamous Epith Cells Blood Type O POSITIVE Antibody Screen Negative BBK History Checked No verified bt 11/16/17 07:00 WBC RBC Hgb Hct MCV MCH MCHC RDW Plt Count MPV Neut % (Auto) Lymph % (Auto) [place] % (Auto) Eos % (Auto) Baso % (Auto) Neut # (Auto) Lymph # (Auto) [place] # (Auto) Eos # (Auto) Baso # (Auto) PT INR APTT Sodium Potassium Chloride Carbon Dioxide Anion Gap BUN Creatinine Est GFR ( Amer) Est GFR (Non-Af Amer) Random Glucose Calcium Total Bilirubin AST ALT Alkaline Phosphatase Total Protein Albumin Globulin Albumin/Globulin Ratio Urine Color Yellow Urine Clarity Clear Urine pH 8.0 Ur Specific [place] 1.006 Urine Protein Negative Urine Glucose (UA) Neg Urine Ketones Trace Urine Blood Small Urine Nitrate Negative Urine Bilirubin Negative Urine Urobilinogen 0.2-1.0 Ur Leukocyte Esterase Neg Urine Microscopic WBC < 1 Ur Squamous Epith Cells < 1 Blood Type Antibody Screen BBK History Checked
--- NOTE | 2017-11-16 12:09 | CP.PCM.CON ---
History of Present Illness - History of Present Illness History of Present Illness: ID: 77 yo femal CC: pain, deforimity L lower extremity/ pt with pain and restricted RZOM Lhip HPI: pt s/[place] [employer] [place]- pt presents with pain and restricted ROM L hip. Pt with marked discomfort pain and rrestricted ROM after Fall presents to ER at [facility]. Pt admitted to Dr Umanzor [facility] [place]- presents with pain andrestruicted Lhip ROM and inability to ambulate Past Patient History - Infectious Disease Hx of Infectious Diseases: None - Past Medical History & Family History Past Medical History?: Yes - Past Social History Smoking Status: Former Smoker - CARDIAC Hx Cardiac Disorders: No - PULMONARY Hx Pneumonia: Yes - NEUROLOGICAL Hx Neurological Disorder: Yes Hx Dementia: Yes - HEENT Hx HEENT Problems: No - RENAL Hx Chronic Kidney Disease: No - ENDOCRINE/METABOLIC Hx Endocrine Disorders: No - HEMATOLOGICAL/ONCOLOGICAL Hx Blood Disorders: Yes Hx Cancer: Yes (left breast) - INTEGUMENTARY Hx Dermatological Problems: No - MUSCULOSKELETAL/RHEUMATOLOGICAL Hx Falls: Yes - GASTROINTESTINAL Hx Gastrointestinal Disorders: No - GENITOURINARY/GYNECOLOGICAL Hx Genitourinary Disorders: No - PSYCHIATRIC Hx Psychophysiologic Disorder: No Hx Substance Use: No - SURGICAL HISTORY Hx Cholecystectomy: Yes - ANESTHESIA Hx Anesthesia: Yes Hx Anesthesia Reactions: No Hx Malignant Hyperthermia: No Meds Allergies/Adverse Reactions: Allergies Allergy/AdvReac Type Severity Reaction Status Date / Time No Known Allergies Allergy Verified 12/29/15 10:30 - Medications Medications: Current Medications Donepezil HCl (Aricept) 10 mg PO HS MELI Morphine Sulfate (Morphine) 2 mg IVP Q6 PRN PRN Reason: Pain, severe (8-10) Last Admin: 11/16/17 09:55 Dose: 2 mg Physical Exam - Additional Findings Additional findings: OE? systemic pt with hx of breats ca remainder systemic exam wnl Musculoskeletal stance/gait- defrred pt with shortening and external rotation L lower extremity Results - Vital Signs Recent Vital Signs: Last Vital Signs Temp 97.7 F 11/16/17 08:06 Pulse 78 11/16/17 08:06 Resp 19 11/16/17 08:06 BP 166/87 H 11/16/17 08:06 Pulse Ox 95 11/16/17 11:08 - Labs Result Diagrams: 11/16/17 06:45 11/16/17 06:45 Labs: Laboratory Results - last 24 hr 11/15/17 11/15/17 11/15/17 14:40 14:40 14:40 WBC 9.6 RBC 3.68 L Hgb 10.8 L D Hct 32.2 L MCV 87.5 MCH 29.2 MCHC 33.4 RDW 15.7 H Plt Count 216 MPV 7.8 Neut % (Auto) 80.5 H Lymph % (Auto) 11.9 L [place] % (Auto) 6.9 Eos % (Auto) 0.3 Baso % (Auto) 0.4 Neut # (Auto) 7.7 H Lymph # (Auto) 1.1 [place] # (Auto) 0.7 Eos # (Auto) 0.0 Baso # (Auto) 0.0 PT 10.0 INR 0.9 APTT 31.3 Sodium 137 Potassium 3.8 Chloride 104 Carbon Dioxide 25 Anion Gap 12 BUN 10 Creatinine 0.7 Est GFR ( Amer) > 60 Est GFR (Non-Af Amer) > 60 Random Glucose 109 H Calcium 9.3 Total Bilirubin 0.5 AST 25 ALT 26 Alkaline Phosphatase 136 H Total Protein 7.0 Albumin 3.7 Globulin 3.2 Albumin/Globulin Ratio 1.2 Urine Color Urine Clarity Urine pH Ur Specific [place] Urine Protein Urine Glucose (UA) Urine Ketones Urine Blood Urine Nitrate Urine Bilirubin Urine Urobilinogen Ur Leukocyte Esterase Urine Microscopic WBC Ur Squamous Epith Cells Blood Type Antibody Screen BBK History Checked 11/15/17 11/16/17 11/16/17 14:40 06:45 06:45 WBC 6.5 RBC 3.65 L Hgb 10.7 L Hct 31.4 L MCV 86.1 MCH 29.4 MCHC 34.2 RDW 15.8 H Plt Count 189 MPV Neut % (Auto) Lymph % (Auto) [place] % (Auto) Eos % (Auto) Baso % (Auto) Neut # (Auto) Lymph # (Auto) [place] # (Auto) Eos # (Auto) Baso # (Auto) PT INR APTT Sodium 138 Potassium 4.0 Chloride 104 Carbon Dioxide 26 Anion Gap 12 BUN 8 Creatinine 0.6 L Est GFR ( Amer) > 60 Est GFR (Non-Af Amer) > 60 Random Glucose 111 H Calcium 9.2 Total Bilirubin 0.8 AST 27 ALT 19 Alkaline Phosphatase 110 Total Protein 6.5 Albumin 3.4 L Globulin 3.1 Albumin/Globulin Ratio 1.1 Urine Color Urine Clarity Urine pH Ur Specific [place] Urine Protein Urine Glucose (UA) Urine Ketones Urine Blood Urine Nitrate Urine Bilirubin Urine Urobilinogen Ur Leukocyte Esterase Urine Microscopic WBC Ur Squamous Epith Cells Blood Type O POSITIVE Antibody Screen Negative BBK History Checked No verified bt 11/16/17 07:00 WBC RBC Hgb Hct MCV MCH MCHC RDW Plt Count MPV Neut % (Auto) Lymph % (Auto) [place] % (Auto) Eos % (Auto) Baso % (Auto) Neut # (Auto) Lymph # (Auto) [place] # (Auto) Eos # (Auto) Baso # (Auto) PT INR APTT Sodium Potassium Chloride Carbon Dioxide Anion Gap BUN Creatinine Est GFR ( Amer) Est GFR (Non-Af Amer) Random Glucose Calcium Total Bilirubin AST ALT Alkaline Phosphatase Total Protein Albumin Globulin Albumin/Globulin Ratio Urine Color Yellow Urine Clarity Clear Urine pH 8.0 Ur Specific [place] 1.006 Urine Protein Negative Urine Glucose (UA) Neg Urine Ketones Trace Urine Blood Small Urine Nitrate Negative Urine Bilirubin Negative Urine Urobilinogen 0.2-1.0 Ur Leukocyte Esterase Neg Urine Microscopic WBC < 1 Ur Squamous Epith Cells < 1 Blood Type Antibody Screen BBK History Checked - Impressions Impression: Imaging Xrays- L subcapital fx L femur preexisting primarty O/A L hip Assessment & Plan - Assessment and Plan (Free Text) Assessment: A- subcapital fx L femur (displaced Garden's 4) with prexisting prior O/A P- to OR for L THR: pros/cons/risks and befits discussed at length with pt and 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
--- NOTE | 2017-11-16 12:28 | CT ---
Date of service: 11/15/2017 PROCEDURE: CT of the Left Hip. HISTORY: L femoral neck fracture COMPARISON: Comparison made with radiographs of the left hip earlier same day. TECHNIQUE: Contiguous axial images of the left hip were obtained. Coronal and sagittal reformats were generated. This CT exam was performed using one or more of the following dose reduction techniques: Automated exposure control, adjustment of the mA and/or kV according to patient size, and/or use of iterative reconstruction technique. Radiation dose: Total DLP = 44.78 FINDINGS: BONES: Current study re- demonstrates a displaced subcapital fracture left femoral neck. Large distal femoral shaft component is displaced superiorly. The left femoral head is appropriately located within the left acetabulum. There is mild surrounding the soft tissue infiltration. Small bone island within the acetabular noted as well. LEFT HIP JOINT: Unremarkable. No dislocation. No degenerative changes. SOFT TISSUES: In situ unclamped Paez catheter within a collapsed urinary bladder. Air is present within the bladder likely due to instrumentation. . Cluster of calcifications of adjacent to the left aspect of the uterine fundus possibly representing an exophytic serosal calcified fibroid or calcifications of within the left ovary. IMPRESSION: Subcapital fracture left femoral neck as described. See above discussion for additional details and findings. Preliminary report provided by overnight radiology service.
--- NOTE | 2017-11-16 18:10 | CP.PCM.HP ---
History of Present Illness - History of Present Illness History of Present Illness: This is a 77 y/o female admitted for left hip fracture. She apparently had a fall by [employer] earlier during the day. She got up and literally walked 6 blocks back to home without any limitation She was brought by daughter due to persistent pain. Xray and CT scan showed subcapital fracture of the left femur. Medical hx Breast cancer nad recently on chemo and radiation tx. anemia Has no allergies. Not on any cardiac medications. Present on Admission - Present on Admission Any Indicators Present on Admission: No History of DVT/PE: No History of Uncontrolled Diabetes: No Urinary Catheter: No Decubitus Ulcer Present: No Review of Systems - Musculoskeletal Musculoskeletal: Arthralgias - Psychiatric Psychiatric: Anxiety Past Patient History - Infectious Disease Hx of Infectious Diseases: None - Past Medical History & Family History Past Medical History?: Yes - Past Social History Smoking Status: Former Smoker - CARDIAC Hx Cardiac Disorders: No - PULMONARY Hx Pneumonia: Yes - NEUROLOGICAL Hx Neurological Disorder: Yes Hx Dementia: Yes - HEENT Hx HEENT Problems: No - RENAL Hx Chronic Kidney Disease: No - ENDOCRINE/METABOLIC Hx Endocrine Disorders: No - HEMATOLOGICAL/ONCOLOGICAL Hx Blood Disorders: Yes Hx Cancer: Yes (left breast) - INTEGUMENTARY Hx Dermatological Problems: No - MUSCULOSKELETAL/RHEUMATOLOGICAL Hx Falls: Yes - GASTROINTESTINAL Hx Gastrointestinal Disorders: No - GENITOURINARY/GYNECOLOGICAL Hx Genitourinary Disorders: No - PSYCHIATRIC Hx Psychophysiologic Disorder: No Hx Substance Use: No - SURGICAL HISTORY Hx Cholecystectomy: Yes - ANESTHESIA Hx Anesthesia: Yes Hx Anesthesia Reactions: No Hx Malignant Hyperthermia: No Meds Allergies/Adverse Reactions: Allergies Allergy/AdvReac Type Severity Reaction Status Date / Time No Known Allergies Allergy Verified 12/29/15 10:30 Physical Exam - Head Exam Head Exam: NORMAL INSPECTION - Eye Exam Eye Exam: Normal appearance - Respiratory Exam Respiratory Exam: Clear to Auscultation Bilateral - Cardiovascular Exam Cardiovascular Exam: REGULAR RHYTHM - GI/Abdominal Exam GI & Abdominal Exam: Normal Bowel Sounds - Extremities Exam Additional comments: tenderness left hip - Neurological Exam Neurological exam: CN II-XII Intact, Oriented x3 - Psychiatric Exam Psychiatric exam: Anxious Results - Vital Signs Recent Vital Signs: Last Vital Signs Temp 98.1 F 11/16/17 17:33 Pulse 91 H 11/16/17 17:33 Resp 20 11/16/17 17:33 BP 159/90 H 11/16/17 17:33 Pulse Ox 97 11/16/17 17:33 - Labs Result Diagrams: 11/16/17 06:45 11/16/17 06:45 Labs: Laboratory Results - last 24 hr 11/16/17 11/16/17 11/16/17 06:45 06:45 07:00 WBC 6.5 RBC 3.65 L Hgb 10.7 L Hct 31.4 L MCV 86.1 MCH 29.4 MCHC 34.2 RDW 15.8 H Plt Count 189 Sodium 138 Potassium 4.0 Chloride 104 Carbon Dioxide 26 Anion Gap 12 BUN 8 Creatinine 0.6 L Est GFR ( Amer) > 60 Est GFR (Non-Af Amer) > 60 Random Glucose 111 H Calcium 9.2 Total Bilirubin 0.8 AST 27 ALT 19 Alkaline Phosphatase 110 Total Protein 6.5 Albumin 3.4 L Globulin 3.1 Albumin/Globulin Ratio 1.1 Urine Color Yellow Urine Clarity Clear Urine pH 8.0 Ur Specific [place] 1.006 Urine Protein Negative Urine Glucose (UA) Neg Urine Ketones Trace Urine Blood Small Urine Nitrate Negative Urine Bilirubin Negative Urine Urobilinogen 0.2-1.0 Ur Leukocyte Esterase Neg Urine Microscopic WBC < 1 Ur Squamous Epith Cells < 1 Blood Type Antibody Screen Crossmatch BBK History Checked 11/16/17 12:05 WBC RBC Hgb Hct MCV MCH MCHC RDW Plt Count Sodium Potassium Chloride Carbon Dioxide Anion Gap BUN Creatinine Est GFR ( Amer) Est GFR (Non-Af Amer) Random Glucose Calcium Total Bilirubin AST ALT Alkaline Phosphatase Total Protein Albumin Globulin Albumin/Globulin Ratio Urine Color Urine Clarity Urine pH Ur Specific [place] Urine Protein Urine Glucose (UA) Urine Ketones Urine Blood Urine Nitrate Urine Bilirubin Urine Urobilinogen Ur Leukocyte Esterase Urine Microscopic WBC Ur Squamous Epith Cells Blood Type O POSITIVE Antibody Screen Negative Crossmatch See Detail BBK History Checked Patient has bt Assessment & Plan (1) Femoral neck fracture Status: Acute (2) Altered mental status Status: Acute (3) Breast cancer Status: Acute (4) Anemia Status: Acute - Assessment and Plan (Free Text) Plan: keep NPO postmidnight IV fluids cardiology clearance Ortho consult pain meds. medically stable for surgery
[2017-11-17 09:15] LABS: HEMOGLOBIN 11.2 g/dL (12.0-16.0); MEAN CELL VOLUME 86.1 fl (81.0-99.0); MEAN CORPUSCULAR HEMOGLOBIN 28.8 pg (27.0-31.0); MEAN CORPUSCULAR HGB CONC 33.4 g/dL (33.0-37.0); RBC 3.9 Mil/uL (3.80-5.20); RED CELL DISTRIBUTION WIDTH 16.3 % (11.5-14.5); WHITE BLOOD COUNT 7.8 K/uL (4.8-10.8)
[2017-11-17 09:25] LABS: BLOOD UREA NITROGEN 7 mg/dl (7-17); CALCIUM 9.1 mg/dL (8.4-10.2); GFR AFRICAN-AMERICAN > 60; GFR NON-AFRICAN AMERICAN > 60
--- NOTE | 2017-11-17 10:05 | CP.PCM.PN ---
Subjective - Date & Time of Evaluation Date of Evaluation: 11/17/17 Time of Evaluation: 10:03 - Subjective Subjective: Patient is fairly stable Has no fever. Has slight pain on the fc site. CBC and CMP are all normal. Objective - Vital Signs/Intake and Output Vital Signs (last 24 hours): Temp Pulse Resp BP Pulse Ox 97.9 F 87 19 136/87 95 11/17/17 08:52 11/17/17 08:52 11/17/17 08:52 11/17/17 08:52 11/17/17 08:52 Intake and Output: 11/17/17 11/17/17 06:59 18:59 Intake Total 0 Output Total 500 Balance -500 - Medications Medications: Current Medications Donepezil HCl (Aricept) 10 mg PO HS MELI Last Admin: 11/16/17 21:58 Dose: 10 mg Lorazepam (Ativan) 1 mg IVP Q8 PRN PRN Reason: Agitation Last Admin: 11/16/17 18:15 Dose: 1 mg Morphine Sulfate (Morphine) 2 mg IVP Q6 PRN PRN Reason: Pain, severe (8-10) Last Admin: 11/16/17 09:55 Dose: 2 mg Risperidone (Risperdal Tab) 1 mg PO ONCE ONE Stop: 11/17/17 22:01 - Labs Labs: 11/17/17 09:08 11/17/17 09:08 PT 10.0 Seconds (9.8-13.1) 11/15/17 14:40 INR 0.9 (0.9-1.2) 11/15/17 14:40 APTT 31.3 Seconds (25.6-37.1) 11/15/17 14:40 - Head Exam Head Exam: NORMAL INSPECTION - Eye Exam Eye Exam: Normal appearance - ENT Exam ENT Exam: Mucous Membranes Moist - Respiratory Exam Respiratory Exam: Clear to Ausculation Bilateral - Cardiovascular Exam Cardiovascular Exam: REGULAR RHYTHM - GI/Abdominal Exam GI & Abdominal Exam: Normal Bowel Sounds - Neurological Exam Neurological Exam: CN II-XII Intact, Oriented x3 - Psychiatric Exam Psychiatric exam: Normal Mood Assessment and Plan (1) Femoral neck fracture Status: Acute (2) Altered mental status Status: Acute (3) Breast cancer Status: Acute (4) Anemia Status: Acute - Assessment and Plan (Free Text) Plan: Cont meds Cont tx cont PT started on risperdal lastnight.
--- NOTE | 2017-11-17 10:23 | CARD ---
APPROVED REPORT Date of service: 11/15/2017 EKG Measurement Heart [id number] <Conclusion> Normal sinus rhythm Normal ECG
[2017-11-17] MEDS ORDERED: Dextrose 5%/Lactated Ringer's 1,000 ML IV SCH (10:30)
[2017-11-17] MEDS ORDERED: Bacitracin Ointment 30 GM TUBE ONE (12:07)
[2017-11-17] MEDS ORDERED: Thrombin Topical 5,000 Int Units Spray Kit ONE (12:08)
[2017-11-17] MEDS ORDERED: GELATIN SPONGE,ABSORB/PORCINE 1 EACH SPONGE TP ONE (12:08)
[2017-11-17] MEDS ORDERED: Ropivacaine 0.5% 30ML IV ONE (12:59)
[2017-11-17] MEDS ORDERED: Rocuronium 10 mg/ml (5 ml) ONE (13:06)
[2017-11-17] MEDS ORDERED: Propofol 10 mg/ml Inj (20 ML) ONE (13:06)
[2017-11-17] MEDS ORDERED: Lidocaine 4% (Laryng-O-Jet) Kit MM ONE (13:07)
[2017-11-17] MEDS ORDERED: ePHEDrine 50 mg/ml Inj ONE (13:12)
[2017-11-17] MEDS ORDERED: Phenylephrine 10 mg/ml Inj ONE (13:13)
[2017-11-17] MEDS ORDERED: EPINEPHrine 1 mg/ml (1:1000) Inj ONE (13:19)
[2017-11-17] MEDS ORDERED: Lactated Ringer's 1,000 ML IV ONE (13:25)
[2017-11-17] MEDS ORDERED: Morphine 1 mg/ml preservative-free Inj(Duramorph) ONE (13:27)
[2017-11-17] MEDS ORDERED: Tranexamic Acid 1,000 MG in Sodium Chloride 0.9% 100 ML IVPB SCH (13:30)
--- NOTE | 2017-11-17 14:12 | CP.PCM.PN ---
Subjective - Date & Time of Evaluation Date of Evaluation: 11/17/17 Time of Evaluation: 13:30 - Subjective Subjective: S- pt with severe pain and rstricted ROM L hip s/p fall Objective - Vital Signs/Intake and Output Vital Signs (last 24 hours): Temp Pulse Resp BP Pulse Ox 97.9 F 87 19 136/87 95 11/17/17 09:00 11/17/17 09:00 11/17/17 09:00 11/17/17 09:00 11/17/17 09:00 Intake and Output: 11/17/17 11/17/17 06:59 18:59 Intake Total 0 Output Total 500 200 Balance -500 -200 - Medications Medications: Current Medications Donepezil HCl (Aricept) 10 mg PO HS MELI Last Admin: 11/16/17 21:58 Dose: 10 mg Dextrose/Lactated Ringer's (Dextrose 5%/Lactated Ringer's) 1,000 mls @ 100 mls/ hr IV .Q10H MELI Stop: 11/18/17 10:25 Last Admin: 11/17/17 10:40 Dose: 100 mls/hr Tranexamic Acid 1,000 mg/ (Sodium Chloride) 110 mls @ 12.5 mls/hr IVPB Q2 MELI Lorazepam (Ativan) 1 mg IVP Q8 PRN PRN Reason: Agitation Last Admin: 11/16/17 18:15 Dose: 1 mg Morphine Sulfate (Morphine) 2 mg IVP Q6 PRN PRN Reason: Pain, severe (8-10) Last Admin: 11/17/17 11:08 Dose: 2 mg Pantoprazole Sodium (Protonix Inj) 40 mg IVP DAILY MELI Last Admin: 11/17/17 11:08 Dose: 40 mg Risperidone (Risperdal Tab) 1 mg PO ONCE ONE Stop: 11/17/17 22:01 - Labs Labs: 11/17/17 09:08 11/17/17 09:08 PT 10.0 Seconds (9.8-13.1) 11/15/17 14:40 INR 0.9 (0.9-1.2) 11/15/17 14:40 APTT 31.3 Seconds (25.6-37.1) 11/15/17 14:40 - Skin Additional comments: Objective systemic- wnl pt with prior hx of breast ca Musculoskeklktal pt with pain and external rotation L hip pt with shortewning and external rotation L hip N/v intact no evidence for thromboembolic disease Assessment and Plan - Assessment and Plan (Free Text) Assessment: A- Xrayt- displaced Gardens 4 subcapital fx L hip' Primary O/A l hip P- for L THR proscons risks and benfits of proposed procedure discussed at length - No promises /guarantees Consent had been obtaine from pt and her daughter Gaby who was present (pts [place] fine- culturally competent emergency department rn Gaby her daughter was present as well and signed xconsent for L THR as well) NO PROMISES /GUARANTEES
[2017-11-17] MEDS ORDERED: Sodium Chloride 0.9% 1,000 ML IV ONE ×2 (14:25→16:00)
[2017-11-17] MEDS ORDERED: Thrombin Topical 5,000 Int Units Spray Kit TOP ONE (16:50)
[2017-11-17] MEDS ORDERED: oxyCODONE 10 mg Immediate Release Tab PO PRN (17:09)
[2017-11-17] MEDS ORDERED: Lactated Ringer's 1,000 ML IV SCH (17:15)
--- NOTE | 2017-11-17 17:27 | PCM.SURG1 ---
Surgeon's Initial Post Op Note - Surgeon's Notes Surgeon: Diego Block MD Tab Cutting Machine Operator: Altaf Burris PA-C, Delores AYALA Type of Anesthesia: General Endo, Spinal, Block Regional Anesthesia Administered By: Tawanda RAINES Pre-Operative Diagnosis: 1. Left hip displaced Garden's 4 subcapital fracture. 2. Pre-existing left hip osteoarthritis Operative Findings: 1. Left hip displaced Garden's 4 subcapital fracture. 2. Pre-existing left hip osteoarthritis. 3. Exuberant left hip synovitis Post-Operative Diagnosis: as above Operation Performed: 1. Left total hip arthroplasty (anterior approach). 2. Left femoral neck osteotomy. 3. Release of iliopsoas, ileofemoral and pubiofemoral ligaments. 4. Allograft bonegraft of the acetabulum. 5. Excision of subcutaneous tissue. 6. Positioning and interperatation of fluoroscopy imaging. 7. Application of HAILEE wound vac dressing Specimen/Specimens Removed: Femoral head, subcutaneous tissue Estimated Blood Loss: EBL {In ML}: 400 Blood Products Given: PRBC (2 units) Drains Used: Wound Vac (HAILEE) Post-Op Condition: Good Date of Surgery/Procedure: 11/17/17 Time of Surgery/Procedure: 13:25 (Incision 14:37)
[2017-11-17] MEDS ORDERED: HYDROmorphone 0.5 mg/0.5 ml ISec IVP PRN (17:34)
--- NOTE | 2017-11-17 17:37 | PCM.ANESB3 ---
Femoral Nerve Block - Femoral Nerve Block Date of Procedure: 11/17/17 Anesthesiologist: Tawanda Pre-Procedure Diagnosis: left hip fracture Post-Procedure Diagnosis: same Procedure Performed: Femoral Nerve Block Left - Procedure Femoral Nerve Block: The procedure was explained to the patient that it is for the post-operative pain management. Consent was obtained after a thorough discussion with the patient regarding the benefits and possible complications of local anesthetic block of the femoral nerve at the inguinal crease area. The patient was brought to the operating room and standard monitors were applied. Time-out was held with the circulating nurse to confirm the correct surgery and the appropriate block. After applying oxygen by nasal cannula and administering IV Sedation, patient was placed in supine position with fully extended lower extremities and the groin exposed. The femoral artery was then carefully palpated. The ultrasound transducer was then applied to this area in the transverse plane and the femoral nerve was visualized lateral to the femoral artery and underneath the fascia iliaca. After thorough identification, the inguinal crease area was prepped with Betadine solution three times and 1 % Lidocaine was injected subcutaneously for topical anesthesia. At this point, a #22 gauge Stimuplex 2-inch needle was inserted immediately lateral to the femoral artery pulse at the inguinal crease and advanced perpendicularly. The needle was inserted to the ultrasound transducer in-plane towards the femoral nerve in a [id number] direction. Needle advancement was performed carefully under direct ultrasound visualization. Nerve stimulator was used and twitch of the quadriceps muscle was obtained at current of _0.4____ MA. After negative aspiration, _15____cc of _0.25____% ___bupivicaine was injected and this was followed with cc of % ____. Under ultrasound guidance the local anesthetics were observed spreading below fascia iliaca and around the femoral nerve. The needle was removed intact and sterile dressing was applied. The patient had stable vital signs, was conscious and in no apparent distress. The patient tolerated the femoral nerve block well with stable vital signs and was prepared for subsequent surgery.
--- NOTE | 2017-11-17 18:23 | RAD ---
PROCEDURE: Left Hip X-ray Radiographs. HISTORY: S/P L NEIL COMPARISON: CT scan of left hip dated 11/15/2017. FINDINGS: The patient is status post total left hip arthroplasty. A small amount expected fluid and air noted in the surgical bed. Skin ulysses is seen superficially. Calcified uterine fibroid is present in the central pelvis. IMPRESSION: Status post left hip arthroplasty.
[2017-11-17] MEDS: Docusate-Senna 50 mg-8.6 mg Tab PO SCH (22:53)
--- NOTE | 2017-11-17 22:53 | CP.PCM.CON ---
History of Present Illness - History of Present Illness History of Present Illness: Atteneing: Dr Umanzor PCP: Dr Geo Solitario Orthopedist: Dr Block Reason for Consult: Critical care management The patent was seen and Examined in the ICU HPI: The Hx is obtained after review of the medical records. She is a 77 years old female with hx of Dementia, Breast cancer s/p Chemo and radiotherapy. She was admitted on 11/15/16 and diagnosed with left femoral neck fracture. She wa taken to the OR on for a Left Total Hip replacement, loosing 400cc of Blood and being transfused 2 units of PRBC. She was transferred to the ICU for close management. PMH: Breast Ca s/p Chemo-Radiotherapy; Dementia; Left arm Left Humerus and left knee fracture PSH: Cholecystectomy; Left knee surgery SH: Former Smoker; Alcohol Occasionally;No Illegal drug use FH: State: No known family Hx Allergies: NKDA Medication: Reviewed Review of Systems - Review of Systems Review of Systems: Review of system is limited as the patient is with dementia and is confused Past Patient History - Infectious Disease Hx of Infectious Diseases: None - Past Medical History & Family History Past Medical History?: Yes - Past Social History Smoking Status: Former Smoker Chewing Tobacco Use: No Cigar Use: No Alcohol: Occasional Home Situation {Lives}: With Family - CARDIAC Hx Cardiac Disorders: No - PULMONARY Hx Pneumonia: Yes - NEUROLOGICAL Hx Neurological Disorder: Yes Hx Dementia: Yes - HEENT Hx HEENT Problems: No - RENAL Hx Chronic Kidney Disease: No - ENDOCRINE/METABOLIC Hx Endocrine Disorders: No - HEMATOLOGICAL/ONCOLOGICAL Hx Blood Disorders: Yes Hx Cancer: Yes (left breast) - INTEGUMENTARY Hx Dermatological Problems: No - MUSCULOSKELETAL/RHEUMATOLOGICAL Hx Falls: Yes - GASTROINTESTINAL Hx Gastrointestinal Disorders: No - GENITOURINARY/GYNECOLOGICAL Hx Genitourinary Disorders: No - PSYCHIATRIC Hx Psychophysiologic Disorder: No Hx Substance Use: No - SURGICAL HISTORY Hx Cholecystectomy: Yes - ANESTHESIA Hx Anesthesia: Yes Hx Anesthesia Reactions: No Hx Malignant Hyperthermia: No Meds Allergies/Adverse Reactions: Allergies Allergy/AdvReac Type Severity Reaction Status Date / Time No Known Allergies Allergy Verified 12/29/15 10:30 - Medications Medications: Current Medications Acetaminophen (Tylenol 325mg Tab) 975 mg PO Q8 MELI Donepezil HCl (Aricept) 10 mg PO HS MELI Last Admin: 11/17/17 22:46 Dose: 10 mg Enoxaparin Sodium (Lovenox) 40 mg SC DAILY [facility] PRN Reason: Protocol Ferrous Sulfate (Feosol) 325 mg PO BID [facility] Folic Acid (Folic Acid) 1 mg PO DAILY [facility] Dextrose/Lactated Ringer's (Dextrose 5%/Lactated Ringer's) 1,000 mls @ 100 mls/ hr IV .Q10H [facility] Stop: 11/18/17 10:25 Last Admin: 11/17/17 10:40 Dose: 100 mls/hr Cefazolin Sodium/Dextrose (Ancef Iv 1 Gm Duplex) 1 gm in 50 mls @ 50 mls/hr IVPB Q8 MELI PRN Reason: Protocol Lactated Ringer's (Lactated Ringer's) 1,000 mls @ 100 mls/hr IV .Q10H [facility] Lorazepam (Ativan) 1 mg IVP Q8 PRN PRN Reason: Agitation Last Admin: 11/16/17 18:15 Dose: 1 mg Morphine Sulfate (Morphine) 2 mg IVP Q6 PRN PRN Reason: Pain, severe (8-10) Last Admin: 11/17/17 11:08 Dose: 2 mg Oxycodone HCl (Oxycodone Immediate Release Tab) 10 mg PO Q6 PRN PRN Reason: Pain, moderate (4-7) Pantoprazole Sodium (Protonix Inj) 40 mg IVP DAILY [facility] Last Admin: 11/17/17 11:08 Dose: 40 mg Senna/Docusate Sodium (Senokot S 50 Mg-8.6 Mg) 2 tab PO HS [facility] Last Admin: 11/17/17 22:53 Dose: Not Given Physical Exam - Constitutional Appears: No Acute Distress - Head Exam Head Exam: ATRAUMATIC, NORMAL INSPECTION, NORMOCEPHALIC - Eye Exam Eye Exam: EOMI, Normal appearance Pupil Exam: NORMAL ACCOMODATION, PERRL - ENT Exam ENT Exam: Mucous Membranes Moist, Normal Exam, Normal External Ear Exam - Neck Exam Neck exam: Positive for: Full Rom, Normal Inspection. Negative for: Lymphadenopathy, Tenderness - Respiratory Exam Respiratory Exam: absent: Clear to Auscultation Bilateral, Rales, Rhonchi, Wheezes - Cardiovascular Exam Cardiovascular Exam: REGULAR RHYTHM, RRR, +S1, +S2. absent: Gallop - GI/Abdominal Exam GI & Abdominal Exam: Normal Bowel Sounds, Soft. absent: Organomegaly, Tenderness - Rectal Exam Rectal Exam: Deferred - Extremities Exam Additional comments: Lateral left hip with post surgical dressing clean and dry. - Back Exam Back exam: NORMAL INSPECTION. absent: CVA tenderness (L), CVA tenderness (R) - Neurological Exam Neurological exam: Alert, Oriented x3, Reflexes Normal - Psychiatric Exam Psychiatric exam: Normal Affect, Normal Mood - Skin Skin Exam: Dry, Intact, Normal Color Results - Vital Signs Recent Vital Signs: Last Vital Signs Temp 97.8 F 11/17/17 20:00 Pulse 81 11/17/17 21:00 Resp 12 11/17/17 21:00 BP 125/75 11/17/17 21:00 Pulse Ox 99 11/17/17 21:00 - Labs Result Diagrams: 11/17/17 09:08 11/17/17 09:08 Labs: Laboratory Results - last 24 hr 11/16/17 11/17/17 11/17/17 12:05 09:08 09:08 WBC 7.8 RBC 3.90 Hgb 11.2 L Hct 33.6 L MCV 86.1 MCH 28.8 MCHC 33.4 RDW 16.3 H Plt Count 207 Sodium 137 Potassium 3.8 Chloride 103 Carbon Dioxide 25 Anion Gap 13 BUN 7 Creatinine 0.6 L Est GFR ( Amer) > 60 Est GFR (Non-Af Amer) > 60 Random Glucose 113 H Calcium 9.1 25-OH Vitamin D Total Blood Type O POSITIVE Antibody Screen Negative Crossmatch See Detail BBK History Checked Patient has bt 11/17/17 09:08 WBC RBC Hgb Hct MCV MCH MCHC RDW Plt Count Sodium Potassium Chloride Carbon Dioxide Anion Gap BUN Creatinine Est GFR ( Amer) Est GFR (Non-Af Amer) Random Glucose Calcium 25-OH Vitamin D Total 26.2 L Blood Type Antibody Screen Crossmatch BBK History Checked - EKG Data EKG comments: NSR 74/min - Imaging and Cardiology Chest x-ray Status: Image reviewed by me, Pending Additional comment: Clear no infiltrate Hip/Pelvis X ray Additional comment: Subcapital Fx left hip with displacement Assessment & Plan - Assessment and Plan (Free Text) Assessment: #. Left Femoral neck fractures/p Left Total Hip Replacement #. Osteoarthritis #. AMS Plan: 77 years old female with hx of Dementia, Breast cancer s/p Chemo and radiotherapy. She was admitted on 11/15/16 and diagnosed with left femoral neck fracture. She wa taken to the OR on for a Left Total Hip replacement, loosing 400cc of Blood and being transfused 2 units of PRBC. She was transferred to the ICU for close management. #. Left Femoral neck fractures/p Left Total Hip Replacement - Orthopedic management - Pain management - IV fluids #. Osteoarthritis - Pain management #. AMS secondary to dementia -- Aricept #. DVT prophylaxiswith Lovenox #. code Status: full - Date & Time Date: 11/17/17 Time: 22:53
[2017-11-18] MEDS: ceFAZolin IV 1 gm in Dextrose 1 GM/50 ML BAG IVPB SCH ×2 (01:48→09:26)
[2017-11-18 05:56] LABS: HEMOGLOBIN 11.1 g/dL (12.0-16.0); MEAN CELL VOLUME 86.8 fl (81.0-99.0); MEAN CORPUSCULAR HGB CONC 33.5 g/dL (33.0-37.0); RBC 3.81 Mil/uL (3.80-5.20); RED CELL DISTRIBUTION WIDTH 15.4 % (11.5-14.5); WHITE BLOOD COUNT 9.3 K/uL (4.8-10.8)
[2017-11-18 06:26] LABS: BLOOD UREA NITROGEN 10 mg/dl (7-17); CALCIUM 8.2 mg/dL (8.4-10.2); GFR AFRICAN-AMERICAN > 60; GFR NON-AFRICAN AMERICAN > 60
--- NOTE | 2017-11-18 08:35 | CP.PCM.PN ---
Subjective - Date & Time of Evaluation Date of Evaluation: 11/18/17 Time of Evaluation: 07:45 - Subjective Subjective: Patient seen and examined at bedside. Poor historian due to dementia. Pain well controlled. No acute events overnight. Objective - Vital Signs/Intake and Output Vital Signs (last 24 hours): Temp Pulse Resp BP Pulse Ox 98.5 F 107 H 14 94/68 L 95 11/18/17 08:00 11/18/17 08:00 11/18/17 08:00 11/18/17 08:00 11/18/17 08:00 Intake and Output: 11/18/17 11/18/17 06:59 18:59 Intake Total 430 Output Total 450 Balance -20 - Medications Medications: Current Medications Acetaminophen (Tylenol 325mg Tab) 975 mg PO Q8 MELI Donepezil HCl (Aricept) 10 mg PO HS [facility] Last Admin: 11/17/17 22:46 Dose: 10 mg Enoxaparin Sodium (Lovenox) 40 mg SC DAILY MELI PRN Reason: Protocol Ferrous Sulfate (Feosol) 325 mg PO BID MELI Folic Acid (Folic Acid) 1 mg PO DAILY [facility] Dextrose/Lactated Ringer's (Dextrose 5%/Lactated Ringer's) 1,000 mls @ 100 mls/ hr IV .Q10H MELI Stop: 11/18/17 10:25 Last Admin: 11/17/17 10:40 Dose: 100 mls/hr Cefazolin Sodium/Dextrose (Ancef Iv 1 Gm Duplex) 1 gm in 50 mls @ 50 mls/hr IVPB Q8 MELI PRN Reason: Protocol Last Admin: 11/18/17 01:48 Dose: 50 mls/hr Lactated Ringer's (Lactated Ringer's) 1,000 mls @ 100 mls/hr IV .Q10H MELI Last Admin: 11/18/17 01:40 Dose: 100 mls/hr Lorazepam (Ativan) 1 mg IVP Q8 PRN PRN Reason: Agitation Last Admin: 11/16/17 18:15 Dose: 1 mg Morphine Sulfate (Morphine) 2 mg IVP Q6 PRN PRN Reason: Pain, severe (8-10) Last Admin: 11/18/17 04:41 Dose: 2 mg Oxycodone HCl (Oxycodone Immediate Release Tab) 10 mg PO Q6 PRN PRN Reason: Pain, moderate (4-7) Pantoprazole Sodium (Protonix Inj) 40 mg IVP DAILY MELI Last Admin: 11/17/17 11:08 Dose: 40 mg Senna/Docusate Sodium (Senokot S 50 Mg-8.6 Mg) 2 tab PO HS MELI Last Admin: 11/17/17 22:53 Dose: Not Given - Labs Labs: 11/18/17 04:55 11/18/17 04:55 PT 10.0 Seconds (9.8-13.1) 11/15/17 14:40 INR 0.9 (0.9-1.2) 11/15/17 14:40 APTT 31.3 Seconds (25.6-37.1) 11/15/17 14:40 - Extremities Exam Additional comments: L hip: mild swelling, mild tenderness HAILEE dressings intact sensation intact SP/DP/TN motor intact EHL/FHL/TN pedal pulses intact comps soft NT Assessment and Plan (1) Subcapital fracture of left hip Assessment & Plan: POD#1 s/p L NEIL following subcapital hip fx -pain controlled -care as per medicine -d/c joanne -PT/OT TTWB -complete postop abx doses -DVT ppx -orthopedically stable for transfer to med/surg -above d/w Dr. Block in agreement Status: Acute
[2017-11-18] MEDS: Enoxaparin 40 mg Syringe SC SCH (08:45)
[2017-11-18] MEDS: Lactated Ringer's 1,000 ML IV SCH ×3 (10:30→18:49)
--- NOTE | 2017-11-18 11:25 | RAD ---
Date of service: 11/17/2017 PROCEDURE: Left NEIL HISTORY: LEFT HIP COMPARISON: None TECHNIQUE: Standard protocol for this study/examination. FINDINGS: Total fluoroscopic time (continuous mode) utilized during the procedure (seconds) 14.1. IMPRESSION: Total exam DLP: 1.66 (mGy)
[2017-11-18] MEDS: ceFAZolin 1 GM in Sodium Chloride 0.9% 100 ML IVPB SCH (16:53)
[2017-11-18] MEDS: Docusate-Senna 50 mg-8.6 mg Tab PO SCH (21:43)
--- NOTE | 2017-11-18 22:00 | PN ---
DATE: 11/18/2017 LOCATION: The patient in ICU, bed 434. TIME SPENT: 45 minutes. SUBJECTIVE: The patient was seen and evaluated at the bedside. Past medical, surgical, social, and family history reviewed. A 77-year-old female with past medical history significant for breast CA, status post chemo radiotherapy, dementia, left humerus and left knee fracture, admitted with left femoral neck fracture, status post left total hip replacement under general and spinal and regional anesthesia. Estimated blood loss, 400 ml. Received 2 units of packed red blood cells in ICU overnight for observation of hemodynamic stability, uneventful overnight. This morning alert and awake but remains confused at her baseline. OBJECTIVE: VITAL SIGNS: Temperature 98.5, heart rate 107 and regular, blood pressure of 94/68, mean arterial pressure of 76, saturation 95%. Intake of 3800, output 650. Positive balance 3030. Weight 122 pounds. EXAMINATION OF HEAD, EYES, EARS, NOSE, AND THROAT: Pupils are reactive. Conjunctivae pink. Sclerae white. NECK: Supple. CHEST: Bilateral breath sounds clear to auscultation. HEART: Rhythm regular. S1, S2 normal intensity. ABDOMEN: Bowel sounds present, soft. Liver and spleen not palpable. Bladder not distended. NEUROLOGIC: Confused but alert and awake. Able to follow simple commands. LABORATORY DATA: WBC 9.3, hemoglobin 11.1, hematocrit 33.1, platelet count of 149. PT 10, INR 0.9, PTT 31.3. SMA-7, sodium 136, potassium 3.8, chloride 105, CO2 of 20, blood urea nitrogen 10, creatinine of 0.06, random glucose 138, calcium 8.2, 125-hydroxy vitamin D level 26.2, albumin 3.4. Urinalysis negative. CURRENT MEDICATIONS: Tylenol 650_ mg every 8 hours; cefazolin 1 gm IV every 8 hours x3, doses completed; Ringer's lactate at 100 mL per hour; Lovenox 40 subcu daily; iron supplement 325 mg twice daily; folic acid 1 mg p.o. daily; Lorazepam 1 mg IV every 8 hours p.r.n.; morphine 2 mg IV every 6 hours p.r.n.; oxycodone 10 mg p.o. every 6 hours p.r.n.; Protonix 40 IV daily; Senokot 2 tablets p.o. at bedtime. IMPRESSION: Status post left femoral neck fracture, status post left total hip replacement, received 2 units of packed red blood cells, hemodynamically stable, hemoglobin 11.1. No bleeding or hematoma noted at the site of surgery, osteoarthritis or change in the mental status at her baseline secondary to dementia. Continue current medications, OT/PT evaluation. Continue physical therapy as tolerated, can be transferred to med surgery floor. Maximino Stahl MD MTDD
[2017-11-19] MEDS: ceFAZolin 1 GM in Sodium Chloride 0.9% 100 ML IVPB SCH ×2 (00:28→10:48)
[2017-11-19] MEDS: Lactated Ringer's 1,000 ML IV SCH ×2 (02:36→06:49)
[2017-11-19 06:38] LABS: HEMOGLOBIN 9.9 g/dL (12.0-16.0); MEAN CELL VOLUME 87.3 fl (81.0-99.0); MEAN CORPUSCULAR HGB CONC 33.2 g/dL (33.0-37.0); RBC 3.4 Mil/uL (3.80-5.20); RED CELL DISTRIBUTION WIDTH 15.7 % (11.5-14.5); WHITE BLOOD COUNT 7.7 K/uL (4.8-10.8)
[2017-11-19 07:34] LABS: BLOOD UREA NITROGEN 9 mg/dl (7-17); CALCIUM 8.5 mg/dL (8.4-10.2); GFR AFRICAN-AMERICAN > 60; GFR NON-AFRICAN AMERICAN > 60
--- NOTE | 2017-11-19 07:52 | CP.PCM.PN ---
Subjective - Date & Time of Evaluation Date of Evaluation: 11/19/17 Time of Evaluation: 07:30 - Subjective Subjective: Patient seen and examined at bedside comfortable. Patient is more alert and oriented, answering cues well. No complaints of pain at this time. No acute events overnight. Objective - Vital Signs/Intake and Output Vital Signs (last 24 hours): Temp Pulse Resp BP Pulse Ox 98.7 F 100 H 19 117/66 96 11/19/17 00:00 11/19/17 00:00 11/19/17 00:00 11/19/17 00:00 11/19/17 00:00 - Medications Medications: Current Medications Acetaminophen (Tylenol 325mg Tab) 975 mg PO Q8 [facility] Last Admin: 11/19/17 00:30 Dose: 975 mg Donepezil HCl (Aricept) 10 mg PO HS [facility] Last Admin: 11/18/17 21:44 Dose: 10 mg Enoxaparin Sodium (Lovenox) 40 mg SC DAILY [facility] PRN Reason: Protocol Last Admin: 11/18/17 08:45 Dose: 40 mg Ferrous Sulfate (Feosol) 325 mg PO BID [facility] Last Admin: 11/18/17 16:50 Dose: 325 mg Folic Acid (Folic Acid) 1 mg PO DAILY [facility] Last Admin: 11/18/17 08:46 Dose: 1 mg Lactated Ringer's (Lactated Ringer's) 1,000 mls @ 125 mls/hr IV .Q8H [facility] Last Admin: 11/19/17 06:49 Dose: 125 mls/hr Cefazolin Sodium 1 gm/ Sodium (Chloride) 100 mls @ 100 mls/hr IVPB Q8 [facility] PRN Reason: Protocol Last Admin: 11/19/17 00:28 Dose: 100 mls/hr Lorazepam (Ativan) 1 mg IVP Q8 PRN PRN Reason: Agitation Last Admin: 11/16/17 18:15 Dose: 1 mg Morphine Sulfate (Morphine) 2 mg IVP Q6 PRN PRN Reason: Pain, severe (8-10) Last Admin: 11/18/17 17:24 Dose: 2 mg Oxycodone HCl (Oxycodone Immediate Release Tab) 10 mg PO Q6 PRN PRN Reason: Pain, moderate (4-7) Pantoprazole Sodium (Protonix Inj) 40 mg IVP DAILY [facility] Last Admin: 11/18/17 08:44 Dose: 40 mg Senna/Docusate Sodium (Senokot S 50 Mg-8.6 Mg) 2 tab PO HS [facility] Last Admin: 11/18/17 21:43 Dose: 2 tab - Labs Labs: 11/19/17 05:35 11/19/17 05:35 PT 10.0 Seconds (9.8-13.1) 11/15/17 14:40 INR 0.9 (0.9-1.2) 11/15/17 14:40 APTT 31.3 Seconds (25.6-37.1) 11/15/17 14:40 - Extremities Exam Additional comments: L hip: mild swelling, mild tenderness HAILEE dressings intact, dressings removed revealing wound CDI with ulysses, no drainage sensation intact SP/DP/TN motor intact EHL/FHL/TN pedal pulses intact comps soft NT Assessment and Plan (1) Subcapital fracture of left hip Assessment & Plan: POD#2 s/p L NEIL following subcapital hip fx -HAILEE dressings changed this AM -PT/OT TTWB -DVT ppx -orthopedically stable for d/c to rehab today -f/u in office in 7-10 days, call for appt -above d/w Dr. Block in agreement Status: Acute
[2017-11-19 09:05] VITALS: BP 142/81; PULSE 83; RESP 20; TEMP 98.6; O2SAT 93
--- NOTE | 2017-11-19 09:18 | OP ---
PROCEDURE DATE: 11/17/2017 PREOPERATIVE DIAGNOSES: 1. Garden's 4 displaced subcapital fracture of the left femur. 2. Preexisting osteoarthritis of the left hip. POSTOPERATIVE DIAGNOSES: 1. Displaced Garden's 4 subcapital fracture of the left hip. 2. Preexisting osteoarthritis of the left hip. 3. Exuberant synovitis. PROCEDURES: 1. Left total hip replacement arthroplasty. 2. Femoral neck osteotomy. 3. Release iliopsoas tendon/release pubofemoral ligament. 4. Autograft bone graft to the acetabulum. SURGEON: Dr. Diego Block. ENTRY SPECIALIST: RAHEEL Rose, certified registered nursing first press operator. SECOND SCREEDMAN: Altaf Burris PA-C. ANESTHESIA: General anesthesia, Dr. Brooks Neff. OPERATIVE INDICATIONS: Lin Ochoa is a 77-year-old woman who sustained a fall sustaining a subcapital fracture of the left hip. The patient had preexisting osteoarthritis and was having pain prior to the fall. Informed consent was obtained from the patient and her daughter, Jessica, although the patient's Mongolian is satisfactory. Pros, cons, risks, and benefits of left total hip replacement arthroplasty, anterior approach were discussed. The possibility of mechanical failure, infection, thromboembolic disease, possibility of secondary or tertiary surgery was discussed. The concept of alternative procedures including benign neglect, open reduction and internal fixation were discussed. The concept of the blood supply of the hip was discussed, we discussed with the daughter. The possibility of mechanical failure, infection, leg length, and the bony nerve injury, secondary or tertiary surgery was discussed. The patient can no longer stand the discomfort and wished the surgery to be accomplished. OPERATIVE PROCEDURE: After having obtained informed consent, after having identified side, site, and procedure and a critical pause/time-out after the satisfactory induction of the anesthetic, the patient identified as, Lin Ochoa. In the supine position with all bony prominences well padded, the left lower extremity was placed in the [facility] traction positioner. After the satisfactory induction of general tracheal anesthesia and spinal anesthesia initially, it was accomplished by Dr. Neff. Postoperatively, the patient will receive a regional block and did receive a regional block. After having obtained informed consent, after having identified side, site and procedure, and a critical pause/time-out, the satisfactory induction of the anesthetic, the left lower extremity was prepped and draped in usual fashion for anterior approach total hip replacement arthroplasty. Under the surgeon's direction, the fluoroscope was positioned, video images were generated and therapeutic decisions were made therefrom. This having been accomplished after sterilely prepping and draping. Under the surgeon's direction, the fluoroscope was positioned. Two turns of traction were applied and the position of the left hip was accomplished. The fracture was clarified, identified as Garden's 4 displaced subcapital fracture of the femur. Right hip was identified as well. This having been accomplished, an incision was described one fingerbreadth distal to the ASIS, four fingerbreadths distal to that, superficial in a slightly oblique fashion to the tensor fascia femoris muscle. This having been accomplished, the skin incision was carried down through the skin and subcutaneous tissue. Hemostasis controlled with electrocautery. This having been accomplished. The fascia was grasped using Allis clamp and the tensor fascia. Femoris muscle was taken down from the investing fascia. At this point in time, the Medacta retractor was placed in the posterior aspect of the rectus femoris muscle was identified. Hemostasis controlled with Aquamantys wand. This plane was carefully developed and the Medacta retractor was placed deeper. At this point in time, a portion of the resected head of rectus femoris was released with the limb in internal rotation 15 degrees. Danni retractor was placed. This having been accomplished. The fascia was divided. The anterior branch of the lateral femoral circumflex vessels were identified. This vascular lesion was controlled with Aquamantys and ligature. This having been accomplished. The capsular fat was excised from the capsule. Capsule was identified and a capsulotomy was accomplished extending from the acetabulum in the lesser trochanter. The Medacta Hohmann retractors were placed. The capsule was elevated. The fracture was identified. The capsule was tagged and a portion was released superiorly. Again, hemostasis controlled with the Aquamantys. This having been accomplished. The femoral neck osteotomy was accomplished identifying the fracture site. The femoral neck osteotomy having been accomplished. The femoral head was removed and it was quite difficult removing the femoral head, so it was quartered with the saw, and the femoral head was removed piecemeal. The appropriate sized reamers were accomplished. Reamers accomplished medially and superiorly. The patient had marked arthritic change. This having been accomplished, the trialing was accomplished of the acetabulum with the appropriate size acetabular trial. Verification of position was offered on image intensification views. Verification of position was offered on image intensification views. This having been accomplished. Again, the verification of position was offered on image intensification views. Capsule having been elevated. Femoral neck osteotomy having been accomplished. The appropriate-sized acetabular component Medacta was coded was impacted. It should be noted that autograft and allograft bone grafting was accomplished at the acetabulum. A 10 mL of DBX with autograft bone graft cup was introduced. Verification of position was offered on image intensification views and the pelvic lift test reveals that the pelvis moves but the cup does not move and grasped with a Danni. Final impaction of the cup was carried out. Attention was turned to the femur. With external rotation, the femur, the pubofemoral ligament was identified. In the interestingly, the ligaments were robust as is the iliopsoas tendon offering a contracture. Pubofemoral, ischiofemoral,, iliofemoral ligaments were released. Iliopsoas tendon was released and with further external rotation, and extension of the femur, the proximal femur was introduced into the retractors were placed. The canal was found. Sequential broaching was carried down to a #2 femoral component. Trialing was accomplished with a -3.8 mm femoral head and the appropriate-sized outer bearing to match the acetabular shell. The hip was reduced, found be stable in all planes. The wound was thoroughly irrigated. A great deal of time was taken to address bleeding. Bleeding points were controlled using the Aquamantys. Thrombin and Gelfoam were employed as well. Blood loss at this point in time was approximately 400 mL. This having been accomplished. The trial was removed. The femur was again exposed. The #2 Medacta collared femoral components were impacted. The leg-length were found to be equal, 28 mm ceramic head was impacted with the appropriate size polyethylene outer bearing for the dual mobility. His mobility was reduced. The hip was found to be stable in all planes. The wound was thoroughly irrigated. Hemostasis controlled with the Aquamantys and intraoperative Gelfoam. This having been accomplished. The wound was thoroughly irrigated. The fascia was closed with 0-Quill followed by 2-0 Vicryl, 0 Vicryl, and ulysses for skin. A compression dressing and wound VAC HAILEE drain was employed. Compression dressing was employed. The patient was transferred from the operating table to the stretcher, having tolerated the procedure well. Blood loss approximately 450 mL. It is unclear whether the Aquamantys fluid and irrigation were taken into consideration. This having been accomplished, it should be noted that the operative goals achieved only with the assistance of Delores Harry, certified registered nursing first press operator and Altaf Burris PA-C. Diego Block MD
[2017-11-19] MEDS: Enoxaparin 40 mg Syringe SC SCH (10:47)
--- NOTE | 2017-11-19 12:56 | CP.PCM.DIS ---
Provider - Provider Date of Admission: 11/15/17 15:02 Attending physician: Kendell Umanzor MD Time Spent in preparation of Discharge (in minutes): 20 Diagnosis - Discharge Diagnosis (1) Anemia Status: Acute (2) Femoral neck fracture Status: Acute (3) Hip pain Status: Acute Hospital Course - Lab Results Lab Results: Micro Results 11/18/17 03:00 Naris MRSA Culture (Admit) - Final MRSA NOT DETECTED 11/15/17 06:53 Urine,Paez Urine Culture - Final No Growth (<1,000 CFU/ML) Most Recent Lab Values WBC 7.7 K/uL (4.8-10.8) 11/19/17 05:35 RBC 3.40 Mil/uL (3.80-5.20) L 11/19/17 05:35 Hgb 9.9 g/dL (12.0-16.0) L 11/19/17 05:35 Hct 29.7 % (34.0-47.0) L 11/19/17 05:35 MCV 87.3 fl (81.0-99.0) 11/19/17 05:35 MCH 29.0 pg (27.0-31.0) 11/19/17 05:35 MCHC 33.2 g/dL (33.0-37.0) 11/19/17 05:35 RDW 15.7 % (11.5-14.5) H 11/19/17 05:35 Plt Count 140 K/uL (130-400) 11/19/17 05:35 MPV 7.8 fl (7.2-11.7) 11/15/17 14:40 Neut % (Auto) 80.5 % (50.0-75.0) H 11/15/17 14:40 Lymph % (Auto) 11.9 % (20.0-40.0) L 11/15/17 14:40 Gilmer % (Auto) 6.9 % (0.0-10.0) 11/15/17 14:40 Eos % (Auto) 0.3 % (0.0-4.0) 11/15/17 14:40 Baso % (Auto) 0.4 % (0.0-2.0) 11/15/17 14:40 Neut # (Auto) 7.7 K/uL (1.8-7.0) H 11/15/17 14:40 Lymph # (Auto) 1.1 K/uL (1.0-4.3) 11/15/17 14:40 Gilmer # (Auto) 0.7 K/uL (0.0-0.8) 11/15/17 14:40 Eos # (Auto) 0.0 K/uL (0.0-0.7) 11/15/17 14:40 Baso # (Auto) 0.0 K/uL (0.0-0.2) 11/15/17 14:40 PT 10.0 Seconds (9.8-13.1) 11/15/17 14:40 INR 0.9 (0.9-1.2) 11/15/17 14:40 APTT 31.3 Seconds (25.6-37.1) 11/15/17 14:40 Sodium 138 mmol/l (132-148) 11/19/17 05:35 Potassium 3.6 MMOL/L (3.6-5.0) 11/19/17 05:35 Chloride 106 mmol/L (98-107) 11/19/17 05:35 Carbon Dioxide 25 mmol/L (22-30) 11/19/17 05:35 Anion Gap 11 (10-20) 11/19/17 05:35 BUN 9 mg/dl (7-17) 11/19/17 05:35 Creatinine 0.6 mg/dl (0.7-1.2) L 11/19/17 05:35 Est GFR ( Amer) > 60 11/19/17 05:35 Est GFR (Non-Af Amer) > 60 11/19/17 05:35 Random Glucose 132 mg/dL (65-105) H 11/19/17 05:35 Calcium 8.5 mg/dL (8.4-10.2) 11/19/17 05:35 Total Bilirubin 0.8 mg/dl (0.2-1.3) 11/16/17 06:45 AST 27 U/L (14-36) 11/16/17 06:45 ALT 19 U/L (9-52) 11/16/17 06:45 Alkaline Phosphatase 110 U/L (38-126) 11/16/17 06:45 Total Protein 6.5 G/DL (6.3-8.2) 11/16/17 06:45 Albumin 3.4 g/dL (3.5-5.0) L 11/16/17 06:45 Globulin 3.1 gm/dL (2.2-3.9) 11/16/17 06:45 Albumin/Globulin Ratio 1.1 (1.0-2.1) 11/16/17 06:45 25-OH Vitamin D Total 26.2 NG/ML (30.0-100.0) L 11/17/17 09:08 Urine Color Yellow (YELLOW) 11/16/17 07:00 Urine Clarity Clear (Clear) 11/16/17 07:00 Urine pH 8.0 (5.0-8.0) 11/16/17 07:00 Ur Specific [place] 1.006 (1.003-1.030) 11/16/17 07:00 Urine Protein Negative mg/dL (NEGATIVE) 11/16/17 07:00 Urine Glucose (UA) Neg mg/dL (Normal) 11/16/17 07:00 Urine Ketones Trace mg/dL (NEGATIVE) 11/16/17 07:00 Urine Blood Small (NEGATIVE) 11/16/17 07:00 Urine Nitrate Negative (NEGATIVE) 11/16/17 07:00 Urine Bilirubin Negative (NEGATIVE) 11/16/17 07:00 Urine Urobilinogen 0.2-1.0 mg/dL (0.2-1.0) 11/16/17 07:00 Ur Leukocyte Esterase Neg Guerita/uL (Negative) 11/16/17 07:00 Urine Microscopic WBC < 1 /hpf (0-5) 11/16/17 07:00 Ur Squamous Epith Cells < 1 /hpf (0-5) 11/16/17 07:00 Blood Type O POSITIVE 11/16/17 12:05 Antibody Screen Negative 11/16/17 12:05 Crossmatch See Detail 11/16/17 12:05 BBK History Checked Patient has bt 11/16/17 12:05 - Hospital Course Hospital Course: 77 y/o female with PMHx of dementia is admitted for left hip fracture after a fall. Pt is POD#2 s/p L NEIL. Seen and examined this AM, doing well, pain well controlled. Pt cleared by ortho for discharge to [facility]. Pt family's request will d /c patient to [facility] with follow up with PMD and Dr. Block in 1 week. Discharge Exam - Head Exam Head Exam: ATRAUMATIC, NORMAL INSPECTION, NORMOCEPHALIC - Eye Exam Eye Exam: EOMI, Normal appearance - Respiratory Exam Respiratory Exam: Clear to PA & Lateral. absent: Wheezes - Cardiovascular Exam Cardiovascular Exam: REGULAR RHYTHM, +S1, +S2 - GI/Abdominal Exam GI & Abdominal Exam: Normal Bowel Sounds, Soft. absent: Tenderness - Back Exam Back exam: NORMAL INSPECTION - Neurological Exam Neurological exam: Alert Discharge Plan - Follow Up Plan Condition: STABLE Disposition: REHAB FACILITY/REHAB UNIT Instructions: Hip Fracture, Anterior Hip Replacement (DC) Additional Instructions: F/U with Dr Block in 1 week Toe- touch to left hip Maintaine left hip drsg with Gladis drain til seen by Dr Block. Referrals: Diego Block III, MD [Staff Provider] -
== END 2017-11-19 14:31 | DRG 470 ==
LOC: H.ER 12:29 → H.ERHOLD 15:02 → H.MEDSURG1 16:18 → H.ICU/CCU 11-17 20:22 → H.MEDSURG1 11-18 10:41
PROVIDERS: ADMIT Family Medicine; ATTEND Family Medicine
PROC: 0SRB04Z Replacement of Left Hip Joint with Ceramic on Polyethylene Synthetic Substitute, Open Approach (ICD-10-PCS; principal; 2017-11-17 15:15)
PROC: 3E0T3BZ Introduction of Anesthetic Agent into Peripheral Nerves and Plexi, Percutaneous Approach (ICD-10-PCS; 2017-11-17 15:15)
DX: S72.012A Unspecified intracapsular fracture of left femur, initial encounter for closed fracture (principal); W01.0XXA Fall on same level from slipping, tripping and stumbling without subsequent striking against object, initial encounter; Z87.01 Personal history of pneumonia (recurrent); Z87.891 Personal history of nicotine dependence; Z90.49 Acquired absence of other specified parts of digestive tract; Z92.21 Personal history of antineoplastic chemotherapy; C50.919 Malignant neoplasm of unspecified site of unspecified female breast; D64.9 Anemia, unspecified; F03.90 Unspecified dementia, unspecified severity, without behavioral disturbance, psychotic disturbance, mood disturbance, and anxiety; M16.12 Unilateral primary osteoarthritis, left hip; M65.9 Synovitis and tenosynovitis, unspecified; Z79.899 Other long term (current) drug therapy; R41.82 Altered mental status, unspecified; Z92.3 Personal history of irradiation

== ENCOUNTER 2018-02-11 13:24 | Observation (INO) | payer MEDICARE ==
[2018-02-11 13:25] VITALS: BMI 25.1
--- NOTE | 2018-02-11 15:12 | ED PDOC ---
HPI: General Adult Time Seen by Provider: 02/11/18 13:25 Chief Complaint (Nursing): Hip Pain Chief Complaint (Provider): Body Pain History Per: Patient History/Exam Limitations: no limitations Onset/Duration Of Symptoms: Days Current Symptoms Are (Timing): Still Present Additional History Per: Family (Daughter) Additional Complaint(s): 77 y/o female with a PMHx of metastatic breast cancer and a hip replacement presents to the ED with daughter for evaluation of total body pain. Patient was discharged from this hospital in January after having underwent a hip replacement. Patient was sent to [facility] upon discharge and has since had total body pain. Daughter is concerned as patient has slowly been having onset of Dementia stating the patient has had trouble remembering things. Otherwise, patient denies fever, pain at this time and other symptom. Daughter reports patient has been taking motrin for pain. Patient was on chemotherapy previously before admission and then stopped after being admitted for a left hip fracture and replacement. Patient additionally has not followed up with oncologist, Dr. Corey in months. daughter was in touch w dr cross partner Dr Payne recently about pain and he advised taking motrin for pain. PMD. Kendell Orona Past Medical History Reviewed: Historical Data, Nursing Documentation, Vital Signs Vital Signs: Last Vital Signs Temp 98.0 F 02/11/18 13:30 Pulse 74 02/11/18 13:30 Resp 20 02/11/18 13:30 BP 138/87 02/11/18 13:30 Pulse Ox 99 02/11/18 13:30 - Medical History PMH: Dementia, Pneumonia Denies: Chronic Kidney Disease Other PMH: Metastatc Breast Cancer - Surgical History Surgical History: Cholecystectomy Other surgeries: Hip Replacement - Family History Family History: States: Unknown Family Hx - Social History Current smoker - smoking cessation education provided: No Alcohol: None Drugs: Denies - Home Medications Home Medications: Ambulatory Orders Medication Instructions Recorded RX: Cyclobenzaprine [Flexeril] 5 mg PO Q12 11/15/17 RX: Donepezil HCl [Aricept] 10 mg PO HS 11/15/17 RX: Acetaminophen [Tylenol 650 mg PO QPM 02/11/18 Arthritis] RX: Ibuprofen/Famotidine [Duexis 1 tab PO Q12 02/11/18 800-26.6 mg Tablet] - Allergies Allergies/Adverse Reactions: Allergies Allergy/AdvReac Type Severity Reaction Status Date / Time No Known Allergies Allergy Verified 02/11/18 13:29 Review of Systems ROS Statement: Except As Marked, All Systems Reviewed And Found Negative Constitutional: Positive for: Other (Total Body Pain) Physical Exam - Reviewed Nursing Documentation Reviewed: Yes Vital Signs Reviewed: Yes - Physical Exam Appears: Positive for: No Acute Distress Head Exam: Positive for: ATRAUMATIC, NORMOCEPHALIC Skin: Positive for: Normal Color, Warm, Dry Eye Exam: Positive for: Normal appearance, EOMI, PERRL ENT: Positive for: Normal ENT Inspection Neck: Positive for: Normal, Painless ROM Cardiovascular/Chest: Positive for: Regular Rate, Rhythm. Negative for: Murmur Respiratory: Positive for: Normal Breath Sounds. Negative for: Respiratory Distress Gastrointestinal/Abdominal: Positive for: Normal Exam, Soft. Negative for: Tenderness Back: Positive for: Normal Inspection. Negative for: L CVA Tenderness, R CVA Tenderness Extremity: Positive for: Normal ROM. Negative for: Pedal Edema, Deformity Neurologic/Psych: Positive for: Alert, Oriented (x3) - Laboratory Results Result Diagrams: 02/12/18 06:00 02/12/18 06:00 - ECG O2 Sat by Pulse Oximetry: 99 (RA) Pulse Ox Interpretation: Normal Medical Decision Making Medical Decision Making: Time: 144 Plan: breast cancer with whole body pain, rule out infection, electrolyte disturbance -- CMP -- CBC with Differentials -- Urine C&S -- Urinalysis -- CXR -- Spoke with Dr. Mayer (covering dr orona) and informed him that the patient was here in the ED. Time: 1710 CXR RESULTS IMPRESSION: No active pulmonary disease Time: 1735 -- Dr. Sultan Abreu (dr orona [facility]) saw the patient and put in orders. pt and daughter aware of plan and agreeable Scribe Attestation: Documented by David Huertas, acting as a scribe for Uri Rainey MD. Provider Scribe Attestation: All medical record entries made by the Scribe were at my direction and personally dictated by me. I have reviewed the chart and agree that the record accurately reflects my personal performance of the history, physical exam, medical decision making, and the department course for this patient. I have also personally directed, reviewed, and agree with the discharge instructions and disposition. Disposition - Clinical Impression Clinical Impression: Back pain - Patient ED Disposition Is Patient to be Admitted: Yes Counseled Patient/Family Regarding: Studies Performed, Diagnosis - Disposition Disposition Time: 15:45 Condition: STABLE
[2018-02-11 16:13] LABS: BASO % 0.6 % (0.0-2.0); EOS # 0.1 K/uL (0.0-0.7); EOS % 1.3 % (0.0-4.0); LYMPH # 1.4 K/uL (1.0-4.3); LYMPH % 20.6 % (20.0-40.0); MEAN CELL VOLUME 87.6 fl (81.0-99.0); MEAN CORPUSCULAR HGB CONC 33.1 g/dL (33.0-37.0); MEAN PLATELET VOLUME 7.3 fl (7.2-11.7); MONO # 0.5 K/uL (0.0-0.8); MONO % 6.9 % (0.0-10.0); NEUT # 4.8 K/uL (1.8-7.0); NEUT % 70.6 % (50.0-75.0); RBC 4.13 Mil/uL (3.80-5.20); WHITE BLOOD COUNT 6.8 K/uL (4.8-10.8)
[2018-02-11 16:19] LABS: SQUAMOUS EPITHIAL < 1 /hpf (0-5); URINE BILIRUBIN NEGATIVE (NEGATIVE); URINE BLOOD MODERATE (NEGATIVE); URINE CLARITY CLEAR (Clear); URINE COLOR YELLOW (YELLOW); URINE GLUCOSE (UA) NEG (Normal); URINE LEUKOCYTE ESTERASE NEG Leu/uL (Negative); URINE PROTEIN NEGATIVE (NEGATIVE); URINE UROBILINOGEN 0.2-1.0 mg/dL (0.2-1.0)
[2018-02-11 16:31] LABS: ALB/GLOB RATIO 0.9 (1.0-2.1); ALBUMIN 3.5 g/dL (3.5-5.0); ALT/SGPT 17 U/L (9-52); AST/SGOT 20 U/L (14-36); BLOOD UREA NITROGEN 9 mg/dl (7-17); CALCIUM 9.4 mg/dL (8.4-10.2); GFR NON-AFRICAN AMERICAN > 60
--- NOTE | 2018-02-11 17:15 | RAD ---
Date of service: 02/11/2018 HISTORY: body pain COMPARISON: 11/15/2017. FINDINGS: LUNGS: The lungs are well inflated and clear. PLEURA: No significant pleural effusion identified, no pneumothorax apparent. CARDIOVASCULAR: Normal. OSSEOUS STRUCTURES: No significant abnormalities. VISUALIZED UPPER ABDOMEN: Normal. OTHER FINDINGS: None. IMPRESSION: No active pulmonary disease.
[2018-02-11] MEDS: Sodium Chloride 0.9% 1,000 ML IV SCH (18:39)
[2018-02-11 23:48] VITALS: RESP 20; TEMP 97.8
[2018-02-12] MEDS: Sodium Chloride 0.9% 1,000 ML IV SCH (03:56)
[2018-02-12 06:31] LABS: BASO % 0.6 % (0.0-2.0); EOS # 0.2 K/uL (0.0-0.7); EOS % 4.7 % (0.0-4.0); HEMOGLOBIN 10.5 g/dL (12.0-16.0); LYMPH # 1.3 K/uL (1.0-4.3); LYMPH % 27.9 % (20.0-40.0); MEAN CELL VOLUME 86.5 fl (81.0-99.0); MEAN CORPUSCULAR HEMOGLOBIN 28.7 pg (27.0-31.0); MEAN CORPUSCULAR HGB CONC 33.2 g/dL (33.0-37.0); MEAN PLATELET VOLUME 7.2 fl (7.2-11.7); MONO # 0.5 K/uL (0.0-0.8); MONO % 10.5 % (0.0-10.0); NEUT # 2.7 K/uL (1.8-7.0); NEUT % 56.3 % (50.0-75.0); NRBC % 0.1 % (0.0-0.0); RBC 3.65 Mil/uL (3.80-5.20); RED CELL DISTRIBUTION WIDTH 15.8 % (11.5-14.5); WHITE BLOOD COUNT 4.8 K/uL (4.8-10.8)
[2018-02-12 06:39] LABS: ALB/GLOB RATIO 0.9 (1.0-2.1); ALBUMIN 2.9 g/dL (3.5-5.0); ALT/SGPT 19 U/L (9-52); AST/SGOT 15 U/L (14-36); BLOOD UREA NITROGEN 5 mg/dl (7-17); GFR NON-AFRICAN AMERICAN > 60
[2018-02-12 08:44] VITALS: BP 138/82
[2018-02-12] MEDS ORDERED: Pantoprazole 40 mg EC Tab PO SCH (09:00)
--- NOTE | 2018-02-12 09:16 | CP.PCM.HP ---
History of Present Illness - History of Present Illness History of Present Illness: History obtained from patients medical record and patients daughter 77 year old female with a PMHx breast cancer s/p chemo and radiation therapy, dementia and left total hip replacement admitted for intractable body pain. Daughter reports patient was discharged from [facility] at end of January and since then she has been taking ibuprofen 600 mg every 8 hours generalized body pain with no significant relief. Reports her mothers dementia has worsened. Denies any chest pain, dyspnea, abdominal pain, nausea, vomiting, headache, dizziness or blurry vison. Denies any decreased appetite. ROS: all 12 systems reviewed and negative except as mentioned in HPI. PMH: Breast Ca s/p Chemo-Radiotherapy; Dementia; Left arm Left Humerus and left knee fracture PSH: Left hip surgery, Cholecystectomy; Left knee surgery, SH: Former Smoker; Alcohol Occasionally ; No Illegal drug use FH: State: No known family Hx Allergies: NKDA Medication: Reviewed Present on Admission - Present on Admission Any Indicators Present on Admission: No Review of Systems - Review of Systems All systems: reviewed and no additional remarkable complaints except Past Patient History - Infectious Disease Hx of Infectious Diseases: None - Past Medical History & Family History Past Medical History?: Yes - Past Social History Smoking Status: Former Smoker - CARDIAC Hx Cardiac Disorders: No - PULMONARY Hx Respiratory Disorders: Yes Hx Pneumonia: Yes - NEUROLOGICAL Hx Neurological Disorder: Yes Hx Dementia: Yes - HEENT Hx HEENT Problems: No - RENAL Hx Chronic Kidney Disease: No - ENDOCRINE/METABOLIC Hx Endocrine Disorders: No - HEMATOLOGICAL/ONCOLOGICAL Hx Blood Disorders: No Hx AIDS: No Hx Human Immunodeficiency Virus (HIV): No - INTEGUMENTARY Hx Dermatological Problems: No - MUSCULOSKELETAL/RHEUMATOLOGICAL Hx Musculoskeletal Disorders: No Hx Falls: No Hx Osteoarthritis: Yes - GASTROINTESTINAL Hx Gastrointestinal Disorders: No - GENITOURINARY/GYNECOLOGICAL Hx Genitourinary Disorders: No - PSYCHIATRIC Hx Psychophysiologic Disorder: No Hx Substance Use: No - SURGICAL HISTORY Hx Surgeries: Yes Hx Cholecystectomy: Yes Hx Joint Replacement: Yes Other/Comment: s/p left THR - ANESTHESIA Hx Anesthesia: Yes Hx Anesthesia Reactions: No Hx Malignant Hyperthermia: No Meds Allergies/Adverse Reactions: Allergies Allergy/AdvReac Type Severity Reaction Status Date / Time No Known Allergies Allergy Verified 02/11/18 13:29 Physical Exam - Constitutional Appears: Non-toxic, No Acute Distress - Head Exam Head Exam: NORMAL INSPECTION - Eye Exam Eye Exam: EOMI, Normal appearance, PERRL - ENT Exam ENT Exam: Mucous Membranes Moist - Neck Exam Neck exam: Positive for: Normal Inspection - Respiratory Exam Respiratory Exam: Clear to Auscultation Bilateral. absent: Rhonchi, Wheezes - Cardiovascular Exam Cardiovascular Exam: REGULAR RHYTHM, +S1, +S2 - GI/Abdominal Exam GI & Abdominal Exam: Normal Bowel Sounds, Soft. absent: Tenderness - Extremities Exam Extremities exam: Positive for: normal inspection - Neurological Exam Neurological exam: Alert - Psychiatric Exam Psychiatric exam: Normal Affect, Normal Mood - Skin Skin Exam: Normal Color, Warm Results - Vital Signs Recent Vital Signs: Last Vital Signs Temp 97.8 F 02/12/18 08:43 Pulse 67 02/12/18 08:43 Resp 20 02/12/18 08:43 BP 138/82 02/12/18 08:43 Pulse Ox 96 02/12/18 08:43 - Labs Result Diagrams: 02/12/18 06:00 02/12/18 06:00 Labs: Laboratory Results - last 24 hr 02/11/18 02/11/18 02/11/18 16:07 16:07 16:07 WBC 6.8 RBC 4.13 Hgb 12.0 D Hct 36.2 MCV 87.6 MCH 29.0 MCHC 33.1 RDW 16.0 H Plt Count 292 D MPV 7.3 Neut % (Auto) 70.6 Lymph % (Auto) 20.6 [place] % (Auto) 6.9 Eos % (Auto) 1.3 Baso % (Auto) 0.6 Neut # (Auto) 4.8 Lymph # (Auto) 1.4 [place] # (Auto) 0.5 Eos # (Auto) 0.1 Baso # (Auto) 0.0 Sodium 141 Potassium 4.2 Chloride 106 Carbon Dioxide 28 Anion Gap 11 BUN 9 Creatinine 0.6 L Est GFR ( Amer) > 60 Est GFR (Non-Af Amer) > 60 Random Glucose 98 Calcium 9.4 Total Bilirubin 0.2 AST 20 ALT 17 Alkaline Phosphatase 173 H D Total Protein 7.3 Albumin 3.5 Globulin 3.8 Albumin/Globulin Ratio 0.9 L Vitamin B12 TSH 3rd Generation Urine Color Yellow Urine Clarity Clear Urine pH 5.0 Ur Specific [place] 1.011 Urine Protein Negative Urine Glucose (UA) Neg Urine Ketones Negative Urine Blood Moderate Urine Nitrate Negative Urine Bilirubin Negative Urine Urobilinogen 0.2-1.0 Ur Leukocyte Esterase Neg Urine RBC (Auto) 1 Urine Microscopic WBC 2 Ur Squamous Epith Cells < 1 02/12/18 02/12/18 06:00 06:00 WBC 4.8 RBC 3.65 L Hgb 10.5 L Hct 31.6 L MCV 86.5 MCH 28.7 MCHC 33.2 RDW 15.8 H Plt Count 247 MPV 7.2 Neut % (Auto) 56.3 Lymph % (Auto) 27.9 [place] % (Auto) 10.5 H Eos % (Auto) 4.7 H Baso % (Auto) 0.6 Neut # (Auto) 2.7 Lymph # (Auto) 1.3 [place] # (Auto) 0.5 Eos # (Auto) 0.2 Baso # (Auto) 0.0 Sodium 141 Potassium 3.6 Chloride 109 H Carbon Dioxide 28 Anion Gap 8 L BUN 5 L Creatinine 0.5 L Est GFR ( Amer) > 60 Est GFR (Non-Af Amer) > 60 Random Glucose 84 Calcium 9.0 Total Bilirubin 0.2 AST 15 ALT 19 Alkaline Phosphatase 137 H D Total Protein 6.1 L Albumin 2.9 L Globulin 3.2 Albumin/Globulin Ratio 0.9 L Vitamin B12 375 TSH 3rd Generation 2.04 Urine Color Urine Clarity Urine pH Ur Specific [place] Urine Protein Urine Glucose (UA) Urine Ketones Urine Blood Urine Nitrate Urine Bilirubin Urine Urobilinogen Ur Leukocyte Esterase Urine RBC (Auto) Urine Microscopic WBC Ur Squamous Epith Cells Assessment & Plan - Assessment and Plan (Free Text) Assessment: 77 year old female with a PMHx breast cancer s/p chemo and radiation therapy, dementia and left total hip replacement admitted for intractable body pain. Plan: Admit to med/surg Pain management IV fluids ED Labs and CXR reviewed AM labs Case discussed with Dr. Moreno Abreu, pgy-2
--- NOTE | 2018-02-12 11:59 | CP.PCM.PN ---
Subjective - Date & Time of Evaluation Date of Evaluation: 02/12/18 Time of Evaluation: 09:35 - Subjective Subjective: Patient seen and examined this morning. Patient denies any body aches or pain this morning. No acute overnight events. Denies any chest pain, nausea, vomiting, fever or chills. Objective - Vital Signs/Intake and Output Vital Signs (last 24 hours): Temp Pulse Resp BP Pulse Ox 97.8 F 67 20 138/82 96 02/12/18 08:43 02/12/18 08:43 02/12/18 08:43 02/12/18 08:43 02/12/18 08:43 - Medications Medications: Current Medications Acetaminophen (Tylenol 325mg Tab) 650 mg PO Q6 PRN PRN Reason: Pain, Mild (1-3) Last Admin: 02/12/18 02:08 Dose: 650 mg Docusate Sodium (Colace) 100 mg PO BID [facility] Last Admin: 02/12/18 08:57 Dose: 100 mg Sodium Chloride (Sodium Chloride 0.9%) 1,000 mls @ 100 mls/hr IV .Q10H [facility] Last Admin: 02/12/18 03:56 Dose: Not Given Ibuprofen (Motrin Tab) 600 mg PO Q6H PRN PRN Reason: Pain, moderate (4-7) Ketorolac Tromethamine (Toradol) 30 mg IVP Q6 PRN PRN Reason: Pain, severe (8-10) Last Admin: 02/12/18 11:40 Dose: 30 mg Ondansetron HCl (Zofran Inj) 4 mg IVP Q6 PRN PRN Reason: Nausea/Vomiting Pantoprazole Sodium (Protonix Ec Tab) 40 mg PO DAILY [facility] Last Admin: 02/12/18 08:57 Dose: 40 mg - Labs Labs: 02/12/18 06:00 02/12/18 06:00 - Constitutional Appears: Non-toxic, No Acute Distress - Head Exam Head Exam: NORMAL INSPECTION - Eye Exam Eye Exam: Normal appearance - ENT Exam ENT Exam: Mucous Membranes Moist - Respiratory Exam Respiratory Exam: Clear to Ausculation Bilateral, NORMAL BREATHING PATTERN. absent: Rhonchi, Wheezes
[2018-02-12 12:29] VITALS: PULSE 93
[2018-02-12 17:28] VITALS: O2SAT 99
== END 2018-02-12 16:05 ==
LOC: H.ER 13:24 → H.ERHOLD 17:16 → H.MEDSURG1 20:50
PROVIDERS: ADMIT Family Medicine; ATTEND Family Medicine
DX: R52 Pain, unspecified (principal); C50.919 Malignant neoplasm of unspecified site of unspecified female breast; F03.90 Unspecified dementia, unspecified severity, without behavioral disturbance, psychotic disturbance, mood disturbance, and anxiety; Z96.642 Presence of left artificial hip joint; Z87.891 Personal history of nicotine dependence; Z92.21 Personal history of antineoplastic chemotherapy; Z92.3 Personal history of irradiation
CPT/HCPCS: 36415; 71045; 80053; 81003; 82607; 84443; 85025; 87086; 97116; 97161; 97530; 99285; G0378; G8978; G8979; J1885; J7030

== ENCOUNTER 2018-03-21 15:02 | Emergency (ER) | payer MEDICARE ==
[2018-03-21 15:02] VITALS: BMI 25.1
[2018-03-21 15:09] VITALS: TEMP 97.7
--- NOTE | 2018-03-21 15:38 | ED PDOC ---
HPI: Trauma/Fall - HPI Time Seen by Provider: 03/21/18 15:14 Chief Complaint (Nursing): Trauma Chief Complaint (Provider): Trauma History Per: Patient, Family (daughter) History/Exam Limitations: no limitations Onset/Duration Of Symptoms: Mins Additional Complaint(s): 77 year old female presents to the ED with daughter after a fall. Patient is s/p left hip replacement and is just out of rehab a few days ago. Daughter reports patient was walking without her walker and fell. Daughter states she had her back towards the patient and heard the fall and turned around and found patient on her back. Denies LOC. Daughter was unable to pick mother back up so she called EMS. Patient has no complaints. Daughter indicates patient's dementia is worse today (i.e. more agitated). Patient was given Ativan PO and is currently at her baseline mental status of baseline confusion. PMD: Dr. Chery Past Medical History Reviewed: Historical Data, Nursing Documentation, Vital Signs Vital Signs: Last Vital Signs Temp 97.7 F 03/21/18 15:06 Pulse 70 03/21/18 15:06 Resp 18 03/21/18 15:06 BP 140/88 03/21/18 15:06 Pulse Ox 100 03/21/18 15:06 - Medical History PMH: Dementia, Pneumonia Denies: HIV, Chronic Kidney Disease - Surgical History Surgical History: Cholecystectomy - Family History Family History: States: Unknown Family Hx - Home Medications Home Medications: Ambulatory Orders Medication Instructions Recorded Cyclobenzaprine [Flexeril] 5 mg PO Q12 11/15/17 Donepezil HCl [Aricept] 10 mg PO HS 11/15/17 Acetaminophen [Tylenol Arthritis] 650 mg PO QPM 02/11/18 Ibuprofen/Famotidine [Duexis 1 tab PO Q12 02/11/18 800-26.6 mg Tablet] Naproxen [Naprosyn Tab] 250 mg PO BID PRN #20 tab 03/21/18 - Allergies Allergies/Adverse Reactions: Allergies Allergy/AdvReac Type Severity Reaction Status Date / Time No Known Allergies Allergy Verified 03/21/18 15:06 Review of Systems ROS Statement: Except As Marked, All Systems Reviewed And Found Negative Neurological: Negative for: Other (LOC) Physical Exam - Reviewed Nursing Documentation Reviewed: Yes Vital Signs Reviewed: Yes - Physical Exam Appears: Positive for: Non-toxic, No Acute Distress Head Exam: Positive for: ATRAUMATIC, NORMAL INSPECTION, NORMOCEPHALIC Skin: Positive for: Normal Color, Warm, Dry Eye Exam: Positive for: Normal appearance Neck: Positive for: Normal, Painless ROM Cardiovascular/Chest: Positive for: Regular Rate, Rhythm. Negative for: Murmur Respiratory: Positive for: Normal Breath Sounds. Negative for: Wheezing, Respiratory Distress Back: Negative for: Other (Cervical spine tenderness) Extremity: Positive for: Normal ROM (Moving all extremities and full ROM at hips and knees) Neurologic/Psych: Negative for: Motor/Sensory Deficits (focal deficits) - ECG O2 Sat by Pulse Oximetry: 100 (RA) Pulse Ox Interpretation: Normal - Other Rad XR C-spine X-Ray: Interpreted by Me (Inadequate study. Disucssed with daughter, declines CT C-spine, pt without apparent pain, FROM @ neck, ambulating without difficulty.) Medical Decision Making Medical Decision Making: Initial Impression: Fall Initial Plan: --Cervical spine X-ray --Chest X-ray --Cervical X-ray --Hip X-ray --Knee X-ray Pt ambulated to bathroom without difficulty. Accession No. : [id number] Patient Name / ID : CINDY RHOADES M / [id number] Exam Date : 03/21/2018 15:20:02 ( Approved ) Study Comment : Sex / Age : F / 77Y Creator : Titi Montesinos MD Dictator : Titi Montesinos MD Controller Operations And Hr Manager : Pantry Chef : Titi Montesinos MD Approver2 : Report Date : 03/21/2018 17:40:33 My Comment : PROCEDURE: Left Hip X-ray Radiographs. HISTORY: Fall COMPARISON: Left hip with pelvis 11/17/2017. FINDINGS: BONES: Prior left hip arthroplasty again identified with protrusio identified at invo lving the acetabular component with bony fragments are periosteal changes seen in the medial left hemipelvis soft tissues abutting the acetabular portion of the prosthetic device. This suspicious for fracture related to axial loading at the left hip joint. Proximal left femur is intact postoperatively with no loosening appreciated or definitive cortical disruption evident. Pelvic ring remains otherwise intact though diffuse osteopenia suggests osteoporosis. Mild right hip degenerative changes are stable as well as the bilateral sacroiliac joints. Pubic symphysis appears intact with no definite pubic bone fracture identified. Soft tissues reflect apparent fibroid like calcifications at the central pelvis slightly left of midline with 2-3 small phlebolith like calcifications identified in the inferior right pelvis soft tissues. JOINTS: SOFT TISSUES: OTHER FINDINGS: None. IMPRESSION: Findings suspicious for fracture at the left acetabulum with migration of the left femur medially resulting in protrusio now. No proximal left femoral fracture appreciated. No dislocation. Diffuse osteopenia suggests osteoporosis. Pelvic ring otherwise appears intact. A discussion of this case with Dr. Altamirano, patient is able to ambulate without significant pain at the left hip joint. Pattern may reflect chronic protrusion occurring over months rather than acute process. Consider follow-up CT in the near term, potentially as an elective procedure as clinically warranted. Allan Lopez (daughter, ), discussed XR findings as above, agrees with plan to observe Mother for L hip pain or difficulty ambulating, outpatient CT if any concerns. Scribe Attestation: Documented by Nolan Madden acting as a scribe for Oralia Altamirano MD. Provider Scribe Attestation: All medical record entries made by the Scribe were at my direction and personally dictated by me. I have reviewed the chart and agree that the record accurately reflects my personal performance of the history, physical exam, medical decision making, and the department course for this patient. I have also personally directed, reviewed, and agree with the discharge instructions and disposition. Disposition - Clinical Impression Clinical Impression: Fall at home - Disposition Referrals: Joe Chery MD [Family Provider] - Disposition: Routine/Home Disposition Time: 17:15 Condition: GOOD Prescriptions: Naproxen [Naprosyn Tab] 250 mg PO BID PRN #20 tab PRN Reason: Pain, Moderate (4-7) Instructions: Preventing Falls in the Older Adult Forms: [employer] (Japanese)
--- NOTE | 2018-03-21 17:33 | RAD ---
Date of service: 03/21/2018 HISTORY: Fall COMPARISON: Frontal chest radiograph 02/11/2018. FINDINGS: LUNGS: No active pulmonary disease. PLEURA: No significant pleural effusion identified, no pneumothorax apparent. CARDIOVASCULAR: Calcific atherosclerotic changes are seen related to the thoracic aorta. Prominent right paratracheal soft tissue stable. Normal cardiac size. No pulmonary vascular congestion. OSSEOUS STRUCTURES: Multiple old healed left rib fractures reiterated. VISUALIZED UPPER ABDOMEN: Surgical clips right upper quadrant again evident. Distention of multiple bowel loops is seen at the left upper quadrant abdomen. OTHER FINDINGS: None. IMPRESSION: No interval acute cardiopulmonary disease appreciable.
[2018-03-21 17:37] VITALS: BP 138/76; PULSE 74; RESP 16
--- NOTE | 2018-03-21 17:37 | RAD ---
Date of service: 03/21/2018 PROCEDURE: Cervical Spine Radiographs. HISTORY: Pain. COMPARISON: None available. FINDINGS: BONES: Limited imaging of the dens. Lateral view fails demonstrate definite fracture. Prevertebral soft tissues are intact. Straightened cervical curvature evident with grade 1 retrolisthesis at C 5 6. C5 slightly posterior C6. Multilevel facet joint arthropathy is appreciated. Diminished osteopenia suggests osteoporosis. OTHER FINDINGS: None. IMPRESSION: Straightened cervical curvature with limited grade 1 spondylolisthesis felt to be degenerative at C5-6 as discussed above. No gross fracture identified. The odontoid process limited evaluation.
--- NOTE | 2018-03-21 17:47 | RAD ---
PROCEDURE: Left Hip X-ray Radiographs. HISTORY: Fall COMPARISON: Left hip with pelvis 11/17/2017. FINDINGS: BONES: Prior left hip arthroplasty again identified with protrusio identified at involving the acetabular component with bony fragments are periosteal changes seen in the medial left hemipelvis soft tissues abutting the acetabular portion of the prosthetic device. This suspicious for fracture related to axial loading at the left hip joint. Proximal left femur is intact postoperatively with no loosening appreciated or definitive cortical disruption evident. Pelvic ring remains otherwise intact though diffuse osteopenia suggests osteoporosis. Mild right hip degenerative changes are stable as well as the bilateral sacroiliac joints. Pubic symphysis appears intact with no definite pubic bone fracture identified. Soft tissues reflect apparent fibroid like calcifications at the central pelvis slightly left of midline with 2-3 small phlebolith like calcifications identified in the inferior right pelvis soft tissues. JOINTS: SOFT TISSUES: OTHER FINDINGS: None. IMPRESSION: Findings suspicious for fracture at the left acetabulum with migration of the left femur medially resulting in protrusio now. No proximal left femoral fracture appreciated. No dislocation. Diffuse osteopenia suggests osteoporosis. Pelvic ring otherwise appears intact. A discussion of this case with Dr. Altamirano, patient is able to ambulate without significant pain at the left hip joint. Pattern may reflect chronic protrusion occurring over months rather than acute process. Consider follow-up CT in the near term, potentially as an elective procedure as clinically warranted. Findings reviewed with Dr. Altamirano 02/18/2018 5:40 p.m..
--- NOTE | 2018-03-21 17:49 | RAD ---
Date of service: 03/21/2018 PROCEDURE: Left Knee Radiographs. HISTORY: Pain. COMPARISON: None. FINDINGS: BONES: Diffuse osteopenia suggests osteoporosis. No acute fracture dislocation identified at this time. Degenerative cortical sclerosis and joint space narrowing are seen at the medial and patellofemoral joint compartments compatible with moderate bicompartmental osteoarthritis. No subluxation or dislocation identified. Soft tissue edema seen anterior to the patellar tendon. Pain status post ORIF with intramedullary nail identified at the visualized tibia. Old healed fractures at the tibia and fibula result in limited deformity. JOINT EFFUSION: None. OTHER FINDINGS: None. IMPRESSION: No acute fracture or dislocation. Diffuse osteopenia suggests osteoporosis. Status post ORIF left tibia.
[2018-03-21 17:52] VITALS: O2SAT 100
== END 2018-03-21 17:37 | disposition home or self-care (01) ==
LOC: H.ER 15:02
DX: Z03.89 Encounter for observation for other suspected diseases and conditions ruled out (principal); F03.90 Unspecified dementia, unspecified severity, without behavioral disturbance, psychotic disturbance, mood disturbance, and anxiety; Z96.642 Presence of left artificial hip joint; W19.XXXA Unspecified fall, initial encounter

== ENCOUNTER 2018-04-05 12:55 | Inpatient (IN) | payer MEDICARE ==
[2018-04-05 12:55] VITALS: BMI 25.1
[2018-04-05 13:52] LABS: BASO % 0.5 % (0.0-2.0); EOS % 0.6 % (0.0-4.0); HEMOGLOBIN 11.8 g/dL (12.0-16.0); MEAN CELL VOLUME 87.5 fl (81.0-99.0); MEAN CORPUSCULAR HEMOGLOBIN 28.7 pg (27.0-31.0); MEAN CORPUSCULAR HGB CONC 32.8 g/dL (33.0-37.0); MEAN PLATELET VOLUME 7.1 fl (7.2-11.7); MONO # 0.6 K/uL (0.0-0.8); MONO % 9.3 % (0.0-10.0); NEUT # 4.8 K/uL (1.8-7.0); NEUT % 73.6 % (50.0-75.0); NRBC % 0.1 % (0.0-0.0); RBC 4.1 Mil/uL (3.80-5.20); RED CELL DISTRIBUTION WIDTH 17.1 % (11.5-14.5); WHITE BLOOD COUNT 6.5 K/uL (4.8-10.8)
[2018-04-05 14:01] LABS: ALBUMIN 3.3 g/dL (3.5-5.0); ALT/SGPT 20 U/L (9-52); AST/SGOT 25 U/L (14-36); BLOOD UREA NITROGEN 14 mg/dl (7-17); GFR NON-AFRICAN AMERICAN > 60
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
--- NOTE | 2018-04-05 17:53 | ED PDOC ---
HPI: Trauma/Fall - HPI Time Seen by Provider: 04/05/18 13:10 Chief Complaint (Nursing): Trauma Chief Complaint (Provider): Dementia/UTI History Per: Patient, Family History/Exam Limitations: other (impaired memory) Onset/Duration Of Symptoms: Days (>300 days), Intermittent Episodes, Worse Since (yesterday; [employer] daughter indicates that she is unable to care for mother since accepting her from [facility] three weeks ago; she indicates that she is without family or other assistance) Location Of Injury: Posterior: Head (pt indicates pain in the right occipital region; no lacerations, contusions, ecchymosis, edema or swelling noted) Additional History Per: Family - Fall Fall:Prior To Injury: Slipped, Lost Balance, Other (Pt regularly ambulates with the assistance of a four pronged walker but has been "forgetting" to use it recently, Today she slipped in a hallway falling backward and striking her head. The patient reports no impairment other than a painful right occiput. 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 - prior to this patient was living in an [facility]) - Social History Alcohol: None Drugs: Denies - Home Medications Home Medications: Ambulatory Orders Medication Instructions Recorded Cyclobenzaprine [Flexeril] 5 mg PO Q12 11/15/17 Donepezil HCl [Aricept] 10 mg PO HS 11/15/17 Acetaminophen [Tylenol Arthritis] 650 mg PO QPM 02/11/18 Ibuprofen/Famotidine [Duexis 1 tab PO Q12 02/11/18 800-26.6 mg Tablet] Naproxen [Naprosyn Tab] 250 mg PO BID PRN #20 tab 03/21/18 - Allergies Allergies/Adverse Reactions: Allergies Allergy/AdvReac Type Severity Reaction Status Date / Time narcotic Allergy RASH Uncoded 04/05/18 20:51 Review of Systems Review Of Systems: ROS cannot be obtained secondary to pt's inabilty to answer questions. Constitutional: Negative for: Fever, Chills, Sweats Physical Exam - Reviewed Nursing Documentation Reviewed: Yes Vital Signs Reviewed: Yes - Physical Exam Appears: Positive for: Non-toxic, No Acute Distress. Negative for: Uncomfortable Head Exam: Positive for: ATRAUMATIC (there is no swelling, edema, ecchymosis, lesion, lacertion, contusion or hematoma visible externally on any portion of the scalp. ), NORMAL INSPECTION Skin: Positive for: Normal Color, Warm, Dry. Negative for: Diaphoresis Eye Exam: Positive for: Normal appearance, EOMI, PERRL. Negative for: Nystagmus, Periorbital swelling, Periorbital tenderness, Conjunctival injection ENT: Positive for: Other (there is no signs of trauma to the bilateral ears; there is no blood in the TM or vestibule) Neck: Positive for: Normal, Supple. Negative for: Decreased ROM, Limited ROM Cardiovascular/Chest: Positive for: Regular Rate, Rhythm, Chest Non Tender. Negative for: Edema, Gallop, Murmur, Bradycardia, Tachycardia Respiratory: Positive for: Normal Breath Sounds. Negative for: Accessory Muscle Use, Crackles, Rales, Rhonchi, Stridor, Wheezing Pulses-Carotid (L): 2+ Pulses-Carotid (R): 2+ Pulses-Radial (L): 2+ Pulses-Radial (R): 2+ Gastrointestinal/Abdominal: Positive for: Normal Exam, Bowel Sounds (normal in all four quadrants), Soft. Negative for: Tenderness Back: Positive for: Normal Inspection, Muscle Spasm (there is significant spasm noted in the lumbrosacral region). Negative for: L CVA Tenderness, R CVA Tenderness, Vertebral Tenderness, Decreased ROM Extremity: Positive for: Normal ROM, Capillary Refill (< seconds at all four distal points). Negative for: Tenderness, Pedal Edema, Calf Tenderness, Deformity, Swelling Neurologic/Psych: Positive for: Aphasia. Negative for: Oriented, Mood/Affect, Facial Droop - Laboratory Results Result Diagrams: 04/06/18 05:40 04/06/18 05:40 Urine dip results: Positive for: Leukocyte Esterase, Nitrate, Protein. Negative for: Ketones, Glucose - ECG ECG: Positive for: Interpreted By Me ECG Rhythm: Positive for: Normal QRS, Normal ST Segment, Sinus Rhythm O2 Sat by Pulse Oximetry: 99 - Progress Condition: Re-examined, Unchanged Medical Decision Making Medical Decision Makin Head CT FINDINGS: HEMORRHAGE: No intracranial hemorrhage. BRAIN: No mass effect or edema. 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 Small left cerebellar infarct. VENTRICLES: Unremarkable. No hydrocephalus. CALVARIUM: Unremarkable. PARANASAL SINUSES: Unremarkable as visualized. No significant inflammatory changes. MASTOID AIR CELLS: Unremarkable as visualized. No inflammatory changes. OTHER FINDINGS: None. IMPRESSION: No acute hemorrhage. Pt was admitted under the service of Disposition - Clinical Impression Clinical Impression: UTI (urinary tract infection), Dementia - Patient ED Disposition Is Patient to be Admitted: Yes Discussed With : Josemanuel Mayer (pt to be admitted under Dr Mayer service to [facility]) Doctor Will See Patient In The: Hospital Counseled Patient/Family Regarding: Studies Performed, Diagnosis, Need For Followup - Disposition Disposition Time: 19:35 Condition: STABLE - Pt Status Changed To: Hospital Disposition Of: Inpatient - Admit Certification Admit to Inpatient:: After my assessment, the patient will require hospitalization for at least two midnights. This is because of the severity of symptoms shown, intensity of services needed, and/or the medical risk in this patient being treated as an outpatient.
[2018-04-05] MEDS ORDERED: DiphenhydrAMINE 50 mg/ml Inj IVP STA (18:17)
[2018-04-05] MEDS ORDERED: DiphenhydrAMINE 50 mg/ml Inj ONE (18:38)
[2018-04-05 19:05] LABS: URINE BILIRUBIN NEGATIVE (NEGATIVE); URINE CLARITY SLIGHT-CLOUDY (Clear); URINE COLOR YELLOW (YELLOW); URINE GLUCOSE (UA) NEGATIVE (Normal)
[2018-04-05 19:10] LABS: URINE BLOOD SMALL (NEGATIVE); URINE PROTEIN 30 mg/dL (NEGATIVE); URINE UROBILINOGEN 0.2-1.0 mg/dL (0.2-1.0)
[2018-04-05 19:11] LABS: SQUAMOUS EPITHIAL 1 /hpf (0-5); URINE BACTERIA RARE (<OCC); URINE LEUKOCYTE ESTERASE TRACE Leu/uL (Negative)
[2018-04-05 19:12] LABS: URINE HYALINE CAST 0-2 /hpf (0-2)
[2018-04-05] MEDS ORDERED: FAMOTIDINE PO SCH (21:00)
[2018-04-05] MEDS ORDERED: IBUPROFEN PO SCH (21:00)
--- NOTE | 2018-04-05 22:10 | CARD ---
APPROVED REPORT Date of service: 04/05/2018 EKG Measurement Heart [id number] <Conclusion> Normal sinus rhythm Normal ECG
[2018-04-06 06:30] LABS: MEAN CELL VOLUME 89.7 fl (81.0-99.0); MEAN CORPUSCULAR HEMOGLOBIN 29.3 pg (27.0-31.0); MEAN CORPUSCULAR HGB CONC 32.6 g/dL (33.0-37.0); RBC 3.77 Mil/uL (3.80-5.20); RED CELL DISTRIBUTION WIDTH 17.1 % (11.5-14.5); WHITE BLOOD COUNT 5.6 K/uL (4.8-10.8)
[2018-04-06 06:47] LABS: ALB/GLOB RATIO 0.9 (1.0-2.1); ALBUMIN 3.1 g/dL (3.5-5.0); ALT/SGPT 18 U/L (9-52); AST/SGOT 20 U/L (14-36); BLOOD UREA NITROGEN 12 mg/dl (7-17); CALCIUM 9.1 mg/dL (8.4-10.2); GFR NON-AFRICAN AMERICAN > 60
--- NOTE | 2018-04-06 09:49 | CP.PCM.HP ---
History of Present Illness - History of Present Illness History of Present Illness: History obtained from patients medical record and patients daughter 77 year old female with a PMHx breast cancer s/p chemo and radiation therapy, dementia and left total hip replacement admitted for falls at home and disorientation at times. Patient was discharged from [facility] and patient's daughter reports her mothers dementia has worsened and continuously forgot to use walker and had multiple falls. Denies any chest pain, dyspnea, abdominal pain. ROS: all 12 systems reviewed and negative except as mentioned in HPI. PMH: Breast Ca s/p Chemo-Radiotherapy; Dementia; Left arm Left Humerus and left knee fracture PSH: Left hip surgery, Cholecystectomy; Left knee surgery, SH: Former Smoker; Alcohol Occasionally ; No Illegal drug use FH: State: No known family Hx Allergies: NKDA Medication: Reviewed Present on Admission - Present on Admission Any Indicators Present on Admission: No Past Patient History - Infectious Disease Hx of Infectious Diseases: None - Past Medical History & Family History Past Medical History?: Yes Past Family History: Reviewed and not pertinent - Past Social History Smoking Status: Former Smoker - CARDIAC Hx Cardiac Disorders: No - PULMONARY Hx Respiratory Disorders: Yes Hx Pneumonia: Yes - NEUROLOGICAL Hx Neurological Disorder: Yes Hx Dementia: Yes - HEENT Hx HEENT Problems: No - RENAL Hx Chronic Kidney Disease: No - ENDOCRINE/METABOLIC Hx Endocrine Disorders: No - HEMATOLOGICAL/ONCOLOGICAL Hx Blood Disorders: No Hx Human Immunodeficiency Virus (HIV): No - INTEGUMENTARY Hx Dermatological Problems: No - MUSCULOSKELETAL/RHEUMATOLOGICAL Hx Musculoskeletal Disorders: Yes Hx Falls: Yes Hx Osteoarthritis: Yes - GASTROINTESTINAL Hx Gastrointestinal Disorders: No - GENITOURINARY/GYNECOLOGICAL Hx Genitourinary Disorders: No - PSYCHIATRIC Hx Psychophysiologic Disorder: No Hx Substance Use: No - SURGICAL HISTORY Hx Surgeries: Yes Hx Cholecystectomy: Yes Other/Comment: Left hip replacement - ANESTHESIA Hx Anesthesia: Yes Hx Anesthesia Reactions: No Hx Malignant Hyperthermia: No Meds Allergies/Adverse Reactions: Allergies Allergy/AdvReac Type Severity Reaction Status Date / Time narcotic Allergy RASH Uncoded 04/05/18 20:51 Physical Exam - Constitutional Appears: Non-toxic, No Acute Distress - Head Exam Head Exam: NORMAL INSPECTION - Eye Exam Eye Exam: Normal appearance - Neck Exam Neck exam: Positive for: Normal Inspection - Respiratory Exam Respiratory Exam: NORMAL BREATHING PATTERN - Cardiovascular Exam Cardiovascular Exam: +S1, +S2 - GI/Abdominal Exam GI & Abdominal Exam: Normal Bowel Sounds, Soft - Neurological Exam Neurological exam: Alert, Oriented x3 - Psychiatric Exam Psychiatric exam: Normal Affect, Normal Mood - Skin Skin Exam: Normal Color, Warm Results - Vital Signs Recent Vital Signs: Last Vital Signs Temp 97.6 F 04/06/18 08:52 Pulse 66 04/06/18 08:52 Resp 20 04/06/18 08:52 BP 128/67 04/06/18 08:52 Pulse Ox 98 04/06/18 08:52 - Labs Result Diagrams: 04/06/18 05:40 04/06/18 05:40 Labs: Laboratory Results - last 24 hr 04/05/18 04/05/18 04/05/18 13:20 13:20 18:25 WBC 6.5 RBC 4.10 Hgb 11.8 L Hct 35.9 MCV 87.5 MCH 28.7 MCHC 32.8 L RDW 17.1 H Plt Count 263 MPV 7.1 L Neut % (Auto) 73.6 Lymph % (Auto) 16.0 L [place] % (Auto) 9.3 Eos % (Auto) 0.6 Baso % (Auto) 0.5 Neut # (Auto) 4.8 Lymph # (Auto) 1.0 [place] # (Auto) 0.6 Eos # (Auto) 0.0 Baso # (Auto) 0.0 Sodium 142 Potassium 4.4 Chloride 104 Carbon Dioxide 29 Anion Gap 13 BUN 14 Creatinine 0.6 L Est GFR ( Amer) > 60 Est GFR (Non-Af Amer) > 60 Random Glucose 83 Calcium 9.0 Total Bilirubin 0.2 AST 25 ALT 20 Alkaline Phosphatase 197 H D Troponin I < 0.0120 Total Protein 6.8 Albumin 3.3 L Globulin 3.5 Albumin/Globulin Ratio 1.0 Urine Color Yellow Urine Clarity Slight-cloudy Urine pH 7.0 Ur Specific [place] 1.019 Urine Protein 30 Urine Glucose (UA) Negative Urine Ketones 20 Urine Blood Small Urine Nitrate Negative Urine Bilirubin Negative Urine Urobilinogen 0.2-1.0 Ur Leukocyte Esterase Trace H Urine RBC (Auto) 12 H Urine Microscopic WBC 8 H Ur Squamous Epith Cells 1 Urine Bacteria Rare Hyaline Casts 0-2 04/06/18 04/06/18 05:40 05:40 WBC 5.6 RBC 3.77 L Hgb 11.0 L Hct 33.8 L MCV 89.7 D MCH 29.3 MCHC 32.6 L RDW 17.1 H Plt Count 240 MPV Neut % (Auto) Lymph % (Auto) [place] % (Auto) Eos % (Auto) Baso % (Auto) Neut # (Auto) Lymph # (Auto) [place] # (Auto) Eos # (Auto) Baso # (Auto) Sodium 142 Potassium 3.9 Chloride 106 Carbon Dioxide 28 Anion Gap 12 BUN 12 Creatinine 0.5 L Est GFR ( Amer) > 60 Est GFR (Non-Af Amer) > 60 Random Glucose 134 H Calcium 9.1 Total Bilirubin 0.3 AST 20 ALT 18 Alkaline Phosphatase 166 H Troponin I Total Protein 6.5 Albumin 3.1 L Globulin 3.4 Albumin/Globulin Ratio 0.9 L Urine Color Urine Clarity Urine pH Ur Specific [place] Urine Protein Urine Glucose (UA) Urine Ketones Urine Blood Urine Nitrate Urine Bilirubin Urine Urobilinogen Ur Leukocyte Esterase Urine RBC (Auto) Urine Microscopic WBC Ur Squamous Epith Cells Urine Bacteria Hyaline Casts Assessment & Plan - Assessment and Plan (Free Text) Assessment: 77 year old female with a PMHx breast cancer s/p chemo and radiation therapy, dementia and left total hip replacement admitted for falls at home with fractures reported on CT scan of hip. Plan: monitor vitals monitor labs Ortho consulted Psych consulted Pain management PT eval rest of plan as orderd
[2018-04-06 11:58] LABS: GAMMA GLUTAMYL TRANSPEPTIDASE 14 U/L (8-78)
[2018-04-06 13:23] LABS: HEPATITIS B SURFACE AG Negative (NEGATIVE)
[2018-04-06 13:29] LABS: HEPATITIS A IGM NEGATIVE (NEGATIVE); HEPATITIS B CORE AB NEGATIVE (NEGATIVE)
[2018-04-06 13:41] LABS: HEPATITIS C ANTIBODY NEGATIVE (NEGATIVE)
--- NOTE | 2018-04-06 15:21 | CP.PCM.CON ---
History of Present Illness - History of Present Illness History of Present Illness: consult requested for agitation and hallucinations 77 year old female with a PMHx breast cancer s/p chemo and radiation therapy, dementia, unable to obtain hx from pt, hx obtained from reviewing chart and from staff , as per staff pt has episodes of agitation, trying to wander and also has been having visual hallucinations on evaluation, pt cooperative yet speech is completely irrelevant and thought process, exhibiting loose association, pt oriented to person only , not to place or time denied suicidal or homicidal ideation, denied command hallucinations Past Patient History - Infectious Disease Hx of Infectious Diseases: None - Past Medical History & Family History Past Medical History?: Yes - Past Social History Smoking Status: Former Smoker - CARDIAC Hx Cardiac Disorders: No - PULMONARY Hx Respiratory Disorders: Yes Hx Pneumonia: Yes - NEUROLOGICAL Hx Neurological Disorder: Yes Hx Dementia: Yes - HEENT Hx HEENT Problems: No - RENAL Hx Chronic Kidney Disease: No - ENDOCRINE/METABOLIC Hx Endocrine Disorders: No - HEMATOLOGICAL/ONCOLOGICAL Hx Blood Disorders: No Hx Human Immunodeficiency Virus (HIV): No - INTEGUMENTARY Hx Dermatological Problems: No - MUSCULOSKELETAL/RHEUMATOLOGICAL Hx Musculoskeletal Disorders: Yes Hx Falls: Yes Hx Osteoarthritis: Yes - GASTROINTESTINAL Hx Gastrointestinal Disorders: No - GENITOURINARY/GYNECOLOGICAL Hx Genitourinary Disorders: No - PSYCHIATRIC Hx Psychophysiologic Disorder: No Hx Substance Use: No - SURGICAL HISTORY Hx Surgeries: Yes Hx Cholecystectomy: Yes Other/Comment: Left hip replacement - ANESTHESIA Hx Anesthesia: Yes Hx Anesthesia Reactions: No Hx Malignant Hyperthermia: No Meds Allergies/Adverse Reactions: Allergies Allergy/AdvReac Type Severity Reaction Status Date / Time narcotic Allergy RASH Uncoded 04/05/18 20:51 - Medications Medications: Current Medications Acetaminophen (Tylenol 325mg Tab) 650 mg PO QPM [facility] Cyclobenzaprine HCl (Flexeril) 5 mg PO Q12 [facility] Last Admin: 04/06/18 08:43 Dose: 5 mg Donepezil HCl (Aricept) 10 mg PO HS [facility] Last Admin: 04/05/18 22:35 Dose: 10 mg Home Med (Ibuprofen/Famotidine [Duexis 800-26.6 Mg Tablet]) 1 tab PO Q12 [facility] Results - Vital Signs Recent Vital Signs: Last Vital Signs Temp 97.6 F 04/06/18 08:52 Pulse 66 04/06/18 08:52 Resp 20 04/06/18 08:52 BP 128/67 04/06/18 08:52 Pulse Ox 98 04/06/18 08:52 - Labs Result Diagrams: 04/06/18 05:40 04/06/18 05:40 Labs: Laboratory Results - last 24 hr 04/05/18 04/06/18 04/06/18 18:25 05:40 05:40 WBC 5.6 RBC 3.77 L Hgb 11.0 L Hct 33.8 L MCV 89.7 D MCH 29.3 MCHC 32.6 L RDW 17.1 H Plt Count 240 Sodium 142 Potassium 3.9 Chloride 106 Carbon Dioxide 28 Anion Gap 12 BUN 12 Creatinine 0.5 L Est GFR ( Amer) > 60 Est GFR (Non-Af Amer) > 60 Random Glucose 134 H Calcium 9.1 Total Bilirubin 0.3 GGT 14 AST 20 ALT 18 Alkaline Phosphatase 166 H Total Protein 6.5 Albumin 3.1 L Globulin 3.4 Albumin/Globulin Ratio 0.9 L Urine Color Yellow Urine Clarity Slight-cloudy Urine pH 7.0 Ur Specific [place] 1.019 Urine Protein 30 Urine Glucose (UA) Negative Urine Ketones 20 Urine Blood Small Urine Nitrate Negative Urine Bilirubin Negative Urine Urobilinogen 0.2-1.0 Ur Leukocyte Esterase Trace H Urine RBC (Auto) 12 H Urine Microscopic WBC 8 H Ur Squamous Epith Cells 1 Urine Bacteria Rare Hyaline Casts 0-2 Hepatitis A IgM Ab Hep Bs Antigen Hep B Core IgM Ab Hepatitis C Antibody 04/06/18 05:40 WBC RBC Hgb Hct MCV MCH MCHC RDW Plt Count Sodium Potassium Chloride Carbon Dioxide Anion Gap BUN Creatinine Est GFR ( Amer) Est GFR (Non-Af Amer) Random Glucose Calcium Total Bilirubin GGT AST ALT Alkaline Phosphatase Total Protein Albumin Globulin Albumin/Globulin Ratio Urine Color Urine Clarity Urine pH Ur Specific [place] Urine Protein Urine Glucose (UA) Urine Ketones Urine Blood Urine Nitrate Urine Bilirubin Urine Urobilinogen Ur Leukocyte Esterase Urine RBC (Auto) Urine Microscopic WBC Ur Squamous Epith Cells Urine Bacteria Hyaline Casts Hepatitis A IgM Ab Negative Hep Bs Antigen Negative Hep B Core IgM Ab Negative Hepatitis C Antibody Negative Assessment & Plan - Assessment and Plan (Free Text) Assessment: major neurocognitive disorder with behavioral disturbances Plan: recommend start namenda 5mg qhs and increase to 10mg qhs in a week rule out medical reasons for the visual hallucinations start risperidone 0.5 mg po q12
--- NOTE | 2018-04-06 16:09 | CT ---
Date of service: 04/05/2018 PROCEDURE: CT left hip HISTORY: fall COMPARISON: Not available TECHNIQUE: 2.5 mm contiguous axial sections were acquired through the left hip. Sagittal and coronal images were reformatted from the axial images. No intravenous contrast was administered for this examination. Total exam DLP: 294.10 mGy-cm This CT exam was performed using 1 or more of the following dose reduction techniques: Automated exposure control, adjustment of the mA and/or kV according to patient size, and/or use of iterative reconstruction technique. FINDINGS: The patient is status post left total hip replacement. There is a comminuted nondisplaced fracture through the junction of the left superior pubic ramus and left pubic symphysis. There is no symphyseal diastasis. There is probable vertical fracture, nondisplaced, through the left sacral ala. This is only partially included on this examination. There is questionable fracture through the left iliac bone just lateral to and extending above the acetabular component of the prosthesis. This is a nondisplaced fracture. No additional fracture is identified. There is no significant soft tissue abnormality identified. IMPRESSION: Status post left total hip replacement. Fracture medial aspect left superior pubic ramus and pubic symphysis. Probable fracture left sacral ala, partially included in this examination. Possible fracture adjacent to acetabular component of left hip prosthesis. Recommend further evaluation with computed tomography of the pelvis to fully evaluate these fractures.
--- NOTE | 2018-04-07 08:02 | CP.PCM.CON ---
History of Present Illness - History of Present Illness History of Present Illness: Id: 77 yo female CC: pain L pubic region HPI 77 yo female [facility], presetns after successfult THR for fx. PT sustained fall with inability to ambulate. PT disoriented but responsive at the time of the eval Past Patient History - Infectious Disease Hx of Infectious Diseases: None - Past Medical History & Family History Past Medical History?: Yes - Past Social History Smoking Status: Former Smoker - CARDIAC Hx Cardiac Disorders: No - PULMONARY Hx Respiratory Disorders: Yes Hx Pneumonia: Yes - NEUROLOGICAL Hx Neurological Disorder: Yes Hx Dementia: Yes - HEENT Hx HEENT Problems: No - RENAL Hx Chronic Kidney Disease: No - ENDOCRINE/METABOLIC Hx Endocrine Disorders: No - HEMATOLOGICAL/ONCOLOGICAL Hx Blood Disorders: No Hx Human Immunodeficiency Virus (HIV): No - INTEGUMENTARY Hx Dermatological Problems: No - MUSCULOSKELETAL/RHEUMATOLOGICAL Hx Musculoskeletal Disorders: Yes Hx Falls: Yes Hx Osteoarthritis: Yes - GASTROINTESTINAL Hx Gastrointestinal Disorders: No - GENITOURINARY/GYNECOLOGICAL Hx Genitourinary Disorders: No - PSYCHIATRIC Hx Psychophysiologic Disorder: No Hx Substance Use: No - SURGICAL HISTORY Hx Surgeries: Yes Hx Cholecystectomy: Yes Other/Comment: Left hip replacement - ANESTHESIA Hx Anesthesia: Yes Hx Anesthesia Reactions: No Hx Malignant Hyperthermia: No Meds Allergies/Adverse Reactions: Allergies Allergy/AdvReac Type Severity Reaction Status Date / Time narcotic Allergy RASH Uncoded 04/05/18 20:51 - Medications Medications: Current Medications Acetaminophen (Tylenol 325mg Tab) 650 mg PO QPM [facility] Last Admin: 04/06/18 17:59 Dose: 650 mg Acetaminophen (Tylenol 325mg Tab) 650 mg PO Q6 PRN PRN Reason: Pain, Mild (1-3) Cyclobenzaprine HCl (Flexeril) 5 mg PO Q12 [facility] Last Admin: 04/06/18 22:10 Dose: 5 mg Donepezil HCl (Aricept) 10 mg PO HS [facility] Last Admin: 04/06/18 22:10 Dose: 10 mg Haloperidol Lactate (Haldol) 0.5 mg IVP Q6 PRN PRN Reason: Agitation Last Admin: 04/06/18 23:57 Dose: 0.5 mg Home Med (Ibuprofen/Famotidine [Duexis 800-26.6 Mg Tablet]) 1 tab PO Q12 [facility] Physical Exam - Additional Findings Additional findings: Physical exam' systemic pt disoriented and somewhat somnolent at the time of the eval (? over medication) Musculoskekltal stancegait- degfrred pt with tenderness to pelvic compression no gross defixcits orthopedically stable Results - Vital Signs Recent Vital Signs: Last Vital Signs Temp 98.2 F 04/07/18 00:18 Pulse 81 04/07/18 00:18 Resp 18 04/07/18 00:18 BP 125/82 04/07/18 00:18 Pulse Ox 95 04/07/18 00:18 - Labs Result Diagrams: 04/06/18 05:40 04/06/18 05:40 Labs: Laboratory Results - last 24 hr 04/06/18 04/06/18 05:40 05:40 GGT 14 Hepatitis A IgM Ab Negative Hep Bs Antigen Negative Hep B Core IgM Ab Negative Hepatitis C Antibody Negative - Impressions Impression: CT- reveals superior/inferior pubic ramus fx. with ? extension to L aceatbulum Assessment & Plan - Assessment and Plan (Free Text) Assessment: A- based on incomplete radiographic eval , pt with superior/inferior pubic ramus fx, with ? extension to L acetabulum P- bedrest planar xrays to be obtained strict Non weigthh bearing thromoboemboiloic prophylaxis
--- NOTE | 2018-04-07 10:24 | RAD ---
PROCEDURE: Left Hip X-ray Radiographs. HISTORY: Hip Fracture COMPARISON: CT left hip 04/05/2018 FINDINGS: BONES: No definite fracture identified. Status post left hip arthroplasty. Prosthesis appears intact and the femoral head component is normally situated in the acetabular component. There is no evidence of prosthesis loosening. JOINTS: Left hip arthroplasty SOFT TISSUES: Normal. OTHER FINDINGS: None. IMPRESSION: No definite acute fracture identified. However, please see report of CT left hip 04/05/2018. recommendation for CT pelvis persists.
--- NOTE | 2018-04-07 16:12 | CP.PCM.PN ---
<Georgina Jaimes - Last Filed: 04/07/18 16:13> Subjective - Date & Time of Evaluation Date of Evaluation: 04/07/18 Time of Evaluation: 09:00 - Subjective Subjective: Overnight, staff noted pt was agitated, received Haldol. Pt seen and examined this morning. Denies pain. No acute distress noted. Objective - Vital Signs/Intake and Output Vital Signs (last 24 hours): Temp Pulse Resp BP Pulse Ox 98.2 F 81 18 125/82 95 04/07/18 00:18 04/07/18 00:18 04/07/18 00:18 04/07/18 00:18 04/07/18 00:18 - Medications Medications: Current Medications Acetaminophen (Tylenol 325mg Tab) 650 mg PO QPM [facility] Last Admin: 04/06/18 17:59 Dose: 650 mg Acetaminophen (Tylenol 325mg Tab) 650 mg PO Q6 PRN PRN Reason: Pain, Mild (1-3) Cyclobenzaprine HCl (Flexeril) 5 mg PO Q12 [facility] Last Admin: 04/07/18 08:56 Dose: 5 mg Donepezil HCl (Aricept) 10 mg PO HS [facility] Last Admin: 04/06/18 22:10 Dose: 10 mg Haloperidol Lactate (Haldol) 0.5 mg IVP Q6 PRN PRN Reason: Agitation Last Admin: 04/06/18 23:57 Dose: 0.5 mg Home Med (Ibuprofen/Famotidine [Duexis 800-26.6 Mg Tablet]) 1 tab PO Q12 [facility] - Labs Labs: 04/06/18 05:40 04/06/18 05:40 - Constitutional Appears: No Acute Distress - Head Exam Head Exam: NORMAL INSPECTION - Eye Exam Eye Exam: Normal appearance - ENT Exam ENT Exam: Mucous Membranes Moist - Respiratory Exam Respiratory Exam: Clear to Ausculation Bilateral. absent: Rales, Wheezes - Cardiovascular Exam Cardiovascular Exam: REGULAR RHYTHM, +S1, +S2. absent: Murmur - GI/Abdominal Exam GI & Abdominal Exam: Soft, Normal Bowel Sounds. absent: Tenderness - Extremities Exam Extremities Exam: Normal Capillary Refill, Tenderness. absent: Calf Tenderness, Joint Swelling, Pedal Edema - Neurological Exam Neurological Exam: Alert - Psychiatric Exam Psychiatric exam: Normal Affect. absent: Anxious Assessment and Plan - Assessment and Plan (Free Text) Assessment: Pt is a 77 y/o female w/ hx of left total hip replacement, admitted s/p fall at home with subsequent fracture of superior pubic jones and pubic symphysis, and possible fracture adjacent to acetabular compenent of left hip prosthesis. Hip/Pelvis xray- no definite hip or pelvic fractures identified -Ortho on board: bed rest, strict non weight bearing, DVT ppx -Pending placement at rehab center once cleared -C/w hoem meds -Haldol prn for agitation <Josemanuel Mayer - Last Filed: 04/07/18 19:19> Objective - Vital Signs/Intake and Output Vital Signs (last 24 hours): Temp Pulse Resp BP Pulse Ox 97.7 F 87 18 96/65 L 96 04/07/18 16:50 04/07/18 16:50 04/07/18 16:50 04/07/18 16:50 04/07/18 16:50 - Medications Medications: Current Medications Acetaminophen (Tylenol 325mg Tab) 650 mg PO QPM [facility] Last Admin: 04/07/18 17:02 Dose: 650 mg Acetaminophen (Tylenol 325mg Tab) 650 mg PO Q6 PRN PRN Reason: Pain, Mild (1-3) Cyclobenzaprine HCl (Flexeril) 5 mg PO Q12 [facility] Last Admin: 04/07/18 08:56 Dose: 5 mg Donepezil HCl (Aricept) 10 mg PO HS [facility] Last Admin: 04/06/18 22:10 Dose: 10 mg Enoxaparin Sodium (Lovenox) 40 mg SC DAILY [facility]; Protocol Haloperidol Lactate (Haldol) 0.5 mg IVP Q6 PRN PRN Reason: Agitation Last Admin: 04/06/18 23:57 Dose: 0.5 mg Home Med (Ibuprofen/Famotidine [Duexis 800-26.6 Mg Tablet]) 1 tab PO Q12 [facility] - Labs Labs: 04/06/18 05:40 04/06/18 05:40 Attending/Attestation - Attestation I have personally seen and examined this patient.: Yes I have fully participated in the care of the patient.: Yes I have reviewed all pertinent clinical information, including history, physical exam and plan: Yes
[2018-04-08] MEDS: Enoxaparin 40 mg Syringe SC SCH (08:53)
--- NOTE | 2018-04-08 14:13 | CP.PCM.PN ---
Subjective - Date & Time of Evaluation Date of Evaluation: 04/08/18 Time of Evaluation: 12:00 - Subjective Subjective: Patient seen and examined at bedside comfortable. Daughter at bedside. Pain well controlled. No new complaints. Objective - Vital Signs/Intake and Output Vital Signs (last 24 hours): Temp Pulse Resp BP Pulse Ox 97.8 F 79 20 102/64 96 04/08/18 08:13 04/08/18 08:13 04/08/18 08:13 04/08/18 08:13 04/08/18 08:13 - Medications Medications: Current Medications Acetaminophen (Tylenol 325mg Tab) 650 mg PO QPM [facility] Last Admin: 04/07/18 17:02 Dose: 650 mg Acetaminophen (Tylenol 325mg Tab) 650 mg PO Q6 PRN PRN Reason: Pain, Mild (1-3) Cyclobenzaprine HCl (Flexeril) 5 mg PO Q12 [facility] Last Admin: 04/08/18 08:53 Dose: 5 mg Donepezil HCl (Aricept) 10 mg PO HS [facility] Last Admin: 04/07/18 21:35 Dose: 10 mg Enoxaparin Sodium (Lovenox) 40 mg SC DAILY [facility]; Protocol Last Admin: 04/08/18 08:53 Dose: 40 mg Haloperidol Lactate (Haldol) 0.5 mg IVP Q6 PRN PRN Reason: Agitation Last Admin: 04/08/18 02:10 Dose: 0.5 mg Home Med (Ibuprofen/Famotidine [Duexis 800-26.6 Mg Tablet]) 1 tab PO Q12 [facility] - Labs Labs: 04/06/18 05:40 04/06/18 05:40 - Extremities Exam Additional comments: LLE: tenderness at groin no masses/erythema/drainage Hip incision well healed sensation intact SP/DP/TN motor intact EHL/FHL/TA/G pedal pulses intact calves soft NT b/l Assessment and Plan (1) Pubic ramus fracture Assessment & Plan: Left pubic ramus and pubic symphysis fx on CT -bedrest until Friday/Friday -Strict NWB -DVT ppx -orthopedically stable -above d/w Dr. Block in agreement Status: Acute
[2018-04-08 15:51] LABS: SQUAMOUS EPITHIAL 1 /hpf (0-5); URINE BACTERIA RARE (<OCC); URINE BILIRUBIN NEGATIVE (NEGATIVE); URINE BLOOD MODERATE (NEGATIVE); URINE CLARITY SLIGHTY-CLOUDY (Clear); URINE COLOR YELLOW (YELLOW); URINE GLUCOSE (UA) NEG (NEGATIVE); URINE LEUKOCYTE ESTERASE NEG Leu/uL (Negative); URINE PROTEIN NEGATIVE (NEGATIVE); URINE UROBILINOGEN 0.2-1.0 mg/dL (0.2-1.0)
--- NOTE | 2018-04-08 18:34 | CP.PCM.PN ---
<Georgina Jaimes - Last Filed: 04/08/18 18:32> Subjective - Date & Time of Evaluation Date of Evaluation: 04/08/18 Time of Evaluation: 08:00 - Subjective Subjective: Pt seen and examined this morning. No complaints. Pain controlled. Objective - Vital Signs/Intake and Output Vital Signs (last 24 hours): Temp Pulse Resp BP Pulse Ox 98.4 F 93 H 18 134/81 99 04/08/18 16:21 04/08/18 16:21 04/08/18 16:21 04/08/18 16:21 04/08/18 18:01 - Medications Medications: Current Medications Acetaminophen (Tylenol 325mg Tab) 650 mg PO QPM [facility] Last Admin: 04/08/18 17:25 Dose: 650 mg Acetaminophen (Tylenol 325mg Tab) 650 mg PO Q6 PRN PRN Reason: Pain, Mild (1-3) Cyclobenzaprine HCl (Flexeril) 5 mg PO Q12 [facility] Last Admin: 04/08/18 08:53 Dose: 5 mg Donepezil HCl (Aricept) 10 mg PO HS [facility] Last Admin: 04/07/18 21:35 Dose: 10 mg Enoxaparin Sodium (Lovenox) 40 mg SC DAILY [facility]; Protocol Last Admin: 04/08/18 08:53 Dose: 40 mg Haloperidol Lactate (Haldol) 0.5 mg IVP Q6 PRN PRN Reason: Agitation Last Admin: 04/08/18 17:25 Dose: 0.5 mg Home Med (Ibuprofen/Famotidine [Duexis 800-26.6 Mg Tablet]) 1 tab PO Q12 [facility] - Labs Labs: 04/06/18 05:40 04/06/18 05:40 - Constitutional Appears: No Acute Distress - Head Exam Head Exam: NORMAL INSPECTION - Eye Exam Eye Exam: Normal appearance - ENT Exam ENT Exam: Mucous Membranes Moist - Respiratory Exam Respiratory Exam: Clear to Ausculation Bilateral - Cardiovascular Exam Cardiovascular Exam: REGULAR RHYTHM - Extremities Exam Extremities Exam: Normal Capillary Refill, Pedal Edema - Psychiatric Exam Psychiatric exam: Normal Affect - Skin Skin Exam: Normal Color Assessment and Plan - Assessment and Plan (Free Text) Assessment: Pt is a 77 y/o female w/ hx of left total hip replacement, admitted s/p fall at home with subsequent fracture of superior pubic jones and pubic symphysis, and possible fracture adjacent to acetabular compenent of left hip prosthesis. Hip/Pelvis xray- no definite hip or pelvic fractures identified -Ortho on board: bed rest, strict non weight bearing, DVT ppx -Pending placement at rehab center once cleared -C/w home meds -Haldol prn for agitation <Josemanuel Mayer - Last Filed: 04/09/18 08:28> Objective - Vital Signs/Intake and Output Vital Signs (last 24 hours): Temp Pulse Resp BP Pulse Ox 97.5 F L 69 20 144/84 95 04/09/18 08:17 04/09/18 08:17 04/09/18 08:17 04/09/18 08:17 04/09/18 08:17 - Medications Medications: Current Medications Acetaminophen (Tylenol 325mg Tab) 650 mg PO QPM [facility] Last Admin: 04/08/18 17:25 Dose: 650 mg Acetaminophen (Tylenol 325mg Tab) 650 mg PO Q6 PRN PRN Reason: Pain, Mild (1-3) Cyclobenzaprine HCl (Flexeril) 5 mg PO Q12 [facility] Last Admin: 04/08/18 21:16 Dose: 5 mg Donepezil HCl (Aricept) 10 mg PO HS [facility] Last Admin: 04/08/18 21:16 Dose: 10 mg Enoxaparin Sodium (Lovenox) 40 mg SC DAILY [facility]; Protocol Last Admin: 04/08/18 08:53 Dose: 40 mg Haloperidol Lactate (Haldol) 0.5 mg IVP Q6 PRN PRN Reason: Agitation Last Admin: 04/08/18 23:22 Dose: 0.5 mg Home Med (Ibuprofen/Famotidine [Duexis 800-26.6 Mg Tablet]) 1 tab PO Q12 [facility] - Labs Labs: 04/06/18 05:40 04/06/18 05:40 Attending/Attestation - Attestation I have personally seen and examined this patient.: Yes I have fully participated in the care of the patient.: Yes I have reviewed all pertinent clinical information, including history, physical exam and plan: Yes
[2018-04-09] MEDS: Enoxaparin 40 mg Syringe SC SCH (08:44)
--- NOTE | 2018-04-09 09:32 | CP.PCM.PN ---
Subjective - Date & Time of Evaluation Date of Evaluation: 04/09/18 Time of Evaluation: 08:00 - Subjective Subjective: Patient seen and examined at bedside comfortable. No complaints of L hip pain at this time. No other complaints. Objective - Vital Signs/Intake and Output Vital Signs (last 24 hours): Temp Pulse Resp BP Pulse Ox 97.5 F L 69 20 144/84 95 04/09/18 08:17 04/09/18 08:17 04/09/18 08:17 04/09/18 08:17 04/09/18 08:17 - Medications Medications: Current Medications Acetaminophen (Tylenol 325mg Tab) 650 mg PO QPM [facility] Last Admin: 04/08/18 17:25 Dose: 650 mg Acetaminophen (Tylenol 325mg Tab) 650 mg PO Q6 PRN PRN Reason: Pain, Mild (1-3) Cyclobenzaprine HCl (Flexeril) 5 mg PO Q12 [facility] Last Admin: 04/09/18 08:44 Dose: 5 mg Donepezil HCl (Aricept) 10 mg PO HS [facility] Last Admin: 04/08/18 21:16 Dose: 10 mg Enoxaparin Sodium (Lovenox) 40 mg SC DAILY [facility]; Protocol Last Admin: 04/09/18 08:44 Dose: 40 mg Haloperidol Lactate (Haldol) 0.5 mg IVP Q6 PRN PRN Reason: Agitation Last Admin: 04/08/18 23:22 Dose: 0.5 mg Home Med (Ibuprofen/Famotidine [Duexis 800-26.6 Mg Tablet]) 1 tab PO Q12 [facility] - Labs Labs: 04/06/18 05:40 04/06/18 05:40 - Extremities Exam Additional comments: LLE: minimal tenderness at groin no masses/erythema/drainage Hip incision well healed sensation intact SP/DP/TN motor intact EHL/FHL/TA/G pedal pulses intact calves soft NT b/l Assessment and Plan (1) Pubic ramus fracture Assessment & Plan: -bedrest until Friday/Friday -Strict NWB x 6-8 weeks -DVT ppx -orthopedically stable for d/c to rehab -above d/w Dr. Block in agreement Status: Acute
--- NOTE | 2018-04-09 13:51 | CP.PCM.PN ---
<Georgina Jaimes - Last Filed: 04/09/18 13:51> Subjective - Date & Time of Evaluation Date of Evaluation: 04/09/18 Time of Evaluation: 08:00 - Subjective Subjective: Pt seen and evaluated this morning with Dr. Mayer. No complaints offered. Slightly confused. Pt has baseline dementia. Appears comfortable and in no acute distress. Objective - Vital Signs/Intake and Output Vital Signs (last 24 hours): Temp Pulse Resp BP Pulse Ox 97.5 F L 69 20 144/84 95 04/09/18 08:17 04/09/18 08:17 04/09/18 08:17 04/09/18 08:17 04/09/18 08:17 - Medications Medications: Current Medications Acetaminophen (Tylenol 325mg Tab) 650 mg PO QPM [facility] Last Admin: 04/08/18 17:25 Dose: 650 mg Acetaminophen (Tylenol 325mg Tab) 650 mg PO Q6 PRN PRN Reason: Pain, Mild (1-3) Cyclobenzaprine HCl (Flexeril) 5 mg PO Q12 [facility] Last Admin: 04/09/18 08:44 Dose: 5 mg Donepezil HCl (Aricept) 10 mg PO HS [facility] Last Admin: 04/08/18 21:16 Dose: 10 mg Enoxaparin Sodium (Lovenox) 40 mg SC DAILY [facility]; Protocol Last Admin: 04/09/18 08:44 Dose: 40 mg Haloperidol Lactate (Haldol) 0.5 mg IVP Q6 PRN PRN Reason: Agitation Last Admin: 04/08/18 23:22 Dose: 0.5 mg Home Med (Ibuprofen/Famotidine [Duexis 800-26.6 Mg Tablet]) 1 tab PO Q12 [facility] - Labs Labs: 04/06/18 05:40 04/06/18 05:40 - Constitutional Appears: No Acute Distress - Head Exam Head Exam: NORMAL INSPECTION - Eye Exam Eye Exam: Normal appearance - ENT Exam ENT Exam: Mucous Membranes Moist - Respiratory Exam Respiratory Exam: Clear to Ausculation Bilateral - Cardiovascular Exam Cardiovascular Exam: REGULAR RHYTHM - Extremities Exam Extremities Exam: absent: Calf Tenderness, Pedal Edema, Tenderness - Neurological Exam Neurological Exam: Alert, Awake. absent: Oriented x3 - Psychiatric Exam Psychiatric exam: Normal Affect - Skin Skin Exam: Normal Color Assessment and Plan - Assessment and Plan (Free Text) Assessment: Pt is a 77 y/o female w/ hx of left total hip replacement, admitted s/p fall at home with subsequent fracture of superior pubic jones and pubic symphysis, and possible fracture adjacent to acetabular component of left hip prosthesis. Hip/Pelvis xray- no definite hip or pelvic fractures identified. -Ortho on board: bed rest unitl Friday/Friday, strict non weight bearing, DVT ppx -Pending placement at rehab center once cleared -C/w home meds -Haldol prn for agitation <Josemanuel Mayer - Last Filed: 04/09/18 17:00> Objective - Vital Signs/Intake and Output Vital Signs (last 24 hours): Temp Pulse Resp BP Pulse Ox 97.5 F L 69 20 144/84 95 04/09/18 08:17 04/09/18 08:17 04/09/18 08:17 04/09/18 08:17 04/09/18 08:17 - Medications Medications: Current Medications Acetaminophen (Tylenol 325mg Tab) 650 mg PO QPM [facility] Last Admin: 04/08/18 17:25 Dose: 650 mg Acetaminophen (Tylenol 325mg Tab) 650 mg PO Q6 PRN PRN Reason: Pain, Mild (1-3) Cyclobenzaprine HCl (Flexeril) 5 mg PO Q12 [facility] Last Admin: 04/09/18 08:44 Dose: 5 mg Donepezil HCl (Aricept) 10 mg PO HS [facility] Last Admin: 04/08/18 21:16 Dose: 10 mg Enoxaparin Sodium (Lovenox) 40 mg SC DAILY [facility]; Protocol Last Admin: 04/09/18 08:44 Dose: 40 mg Haloperidol Lactate (Haldol) 0.5 mg IVP Q6 PRN PRN Reason: Agitation Last Admin: 04/08/18 23:22 Dose: 0.5 mg Home Med (Ibuprofen/Famotidine [Duexis 800-26.6 Mg Tablet]) 1 tab PO Q12 [facility] - Labs Labs: 04/06/18 05:40 04/06/18 05:40 Attending/Attestation - Attestation I have personally seen and examined this patient.: Yes I have fully participated in the care of the patient.: Yes I have reviewed all pertinent clinical information, including history, physical exam and plan: Yes
--- NOTE | 2018-04-09 14:17 | PQF ---
PROVIDER RESPONSE TEXT: UTI ruled out, likely contaminant, Ucx negative REVIEWER QUERY TEXT: Rule Out Condition Clarification Pt has documented UTI by the ER MD . Please clarify if the UTI is ruled in or ruled out. UA: Small blood, rare bacteria, trace leukocyte esterase. Urine CS: 10-50,000 CFU/ML multiple species , probable contamination. No treatment Please clarify status of this condition: -Patient has condition -Condition was ruled out Please provide corresponding diagnosis for patient's clinical picture and associated treatment -Patient had condition which is now resolved -Other (please specify) -Clinically unable to determine -Unknown The patient's Clinical Indicators include: Admitted due to frequent falls and noted to have pubic fractures. UA: Small blood, rare bacteria, trace leukocyte esterase. Urine CS: 10-50,000 CFU/ML multiple species , probable contamination. No treatment WBC 6.5, Afebrile Query created by: Elsa Salvador on 04/09/2018 8:49 AM Electronically signed by: Georgina Jaimes 04/09/2018 2:14 PM
--- NOTE | 2018-04-10 08:44 | CP.PCM.PN ---
<Georgina Jaimes - Last Filed: 04/10/18 16:52> Subjective - Date & Time of Evaluation Date of Evaluation: 04/10/18 Time of Evaluation: 09:00 - Subjective Subjective: Overnight, pt became agitated, attempting to get out of bed, Avysys added for monitoring. Seen and evaluated this morning with Dr. Mayer. Appears calm, lying in bed. Daughter at bedside, states her dementia as gotten worse. Objective - Vital Signs/Intake and Output Vital Signs (last 24 hours): Temp Pulse Resp BP Pulse Ox 97.8 F 81 20 162/87 H 97 04/10/18 08:40 04/10/18 08:40 04/10/18 08:40 04/10/18 08:40 04/10/18 08:40 - Medications Medications: Current Medications Acetaminophen (Tylenol 325mg Tab) 650 mg PO QPM [facility] Last Admin: 04/09/18 18:15 Dose: 650 mg Acetaminophen (Tylenol 325mg Tab) 650 mg PO Q6 PRN PRN Reason: Pain, Mild (1-3) Last Admin: 04/10/18 05:06 Dose: 650 mg Cyclobenzaprine HCl (Flexeril) 5 mg PO Q12 [facility] Last Admin: 04/09/18 21:02 Dose: 5 mg Donepezil HCl (Aricept) 10 mg PO HS [facility] Last Admin: 04/09/18 21:02 Dose: 10 mg Enoxaparin Sodium (Lovenox) 40 mg SC DAILY [facility]; Protocol Last Admin: 04/09/18 08:44 Dose: 40 mg Haloperidol Lactate (Haldol) 0.5 mg IVP Q6 PRN PRN Reason: Agitation Last Admin: 04/08/18 23:22 Dose: 0.5 mg Home Med (Ibuprofen/Famotidine [Duexis 800-26.6 Mg Tablet]) 1 tab PO Q12 [facility] - Labs Labs: 04/06/18 05:40 04/06/18 05:40 - Constitutional Appears: No Acute Distress - Head Exam Head Exam: NORMAL INSPECTION - Eye Exam Eye Exam: Normal appearance - ENT Exam ENT Exam: Mucous Membranes Moist - Respiratory Exam Respiratory Exam: Clear to Ausculation Bilateral - Extremities Exam Extremities Exam: Normal Inspection - Neurological Exam Neurological Exam: Alert. absent: Oriented x3 - Psychiatric Exam Psychiatric exam: Normal Affect. absent: Agitated, Anxious - Skin Skin Exam: Normal Color Assessment and Plan - Assessment and Plan (Free Text) Assessment: Pt is a 77 y/o female w/ hx of left total hip replacement, admitted s/p fall at home with subsequent fracture of superior pubic jones and pubic symphysis, and possible fracture adjacent to acetabular component of left hip prosthesis. Hip/Pelvis xray- no definite hip or pelvic fractures identified. Pelvic/Hip Fx -Ortho on board: bed rest unitl Friday/Friday, strict non weight bearing, DVT ppx -Dispo: placement pending into Subacute Rehab as per PT assessment Dementia -Worsening as per family, has been having more frequent acute agitation/confusion episodes -As per psych recommendations, added Risperidone 0.5q12 and Memantine 5mg po daily -Haldol prn for agitation -C/W Aricept -U/A sent, f/u DVT ppx Lovenox <Josemanuel Mayer - Last Filed: 04/11/18 10:28> Objective - Vital Signs/Intake and Output Vital Signs (last 24 hours): Temp Pulse Resp BP Pulse Ox 98.1 F 85 19 122/74 96 04/11/18 07:55 04/11/18 07:55 04/11/18 07:55 04/11/18 07:55 04/11/18 07:55 - Medications Medications: Current Medications Acetaminophen (Tylenol 325mg Tab) 650 mg PO QPM [facility] Last Admin: 04/10/18 17:46 Dose: 650 mg Acetaminophen (Tylenol 325mg Tab) 650 mg PO Q6 PRN PRN Reason: Pain, Mild (1-3) Last Admin: 04/10/18 05:06 Dose: 650 mg Cyclobenzaprine HCl (Flexeril) 5 mg PO Q12 [facility] Last Admin: 04/10/18 09:27 Dose: 5 mg Donepezil HCl (Aricept) 10 mg PO HS [facility] Last Admin: 04/10/18 21:34 Dose: 10 mg Enoxaparin Sodium (Lovenox) 40 mg SC DAILY [facility]; Protocol Last Admin: 04/11/18 08:44 Dose: 40 mg Haloperidol Lactate (Haldol) 0.5 mg IVP Q6 PRN PRN Reason: Agitation Last Admin: 04/08/18 23:22 Dose: 0.5 mg Home Med (Ibuprofen/Famotidine [Duexis 800-26.6 Mg Tablet]) 1 tab PO Q12 [facility] Ciprofloxacin (Cipro 400mg/200ml Dsw) 400 mg in 200 mls @ 200 mls/hr IVPB Q12 [facility]; Protocol Last Admin: 04/11/18 08:44 Dose: 200 mls/hr Memantine (Namenda) 5 mg PO DAILY [facility] Last Admin: 04/11/18 08:45 Dose: 5 mg Risperidone (Risperdal Tab) 0.5 mg PO Q12 [facility] Last Admin: 04/11/18 08:45 Dose: 0.5 mg - Labs Labs: 04/10/18 10:29 04/10/18 10:29 Attending/Attestation - Attestation I have personally seen and examined this patient.: Yes I have fully participated in the care of the patient.: Yes I have reviewed all pertinent clinical information, including history, physical exam and plan: Yes
[2018-04-10] MEDS: Enoxaparin 40 mg Syringe SC SCH (09:28)
[2018-04-10 10:44] LABS: BASO % 0.6 % (0.0-2.0); EOS # 0.1 K/uL (0.0-0.7); HEMOGLOBIN 12.5 g/dL (12.0-16.0); LYMPH # 1.2 K/uL (1.0-4.3); LYMPH % 18.6 % (20.0-40.0); MEAN CELL VOLUME 88.4 fl (81.0-99.0); MEAN CORPUSCULAR HEMOGLOBIN 28.9 pg (27.0-31.0); MEAN CORPUSCULAR HGB CONC 32.7 g/dL (33.0-37.0); MEAN PLATELET VOLUME 7.4 fl (7.2-11.7); MONO # 0.6 K/uL (0.0-0.8); MONO % 8.7 % (0.0-10.0); NEUT # 4.6 K/uL (1.8-7.0); NEUT % 71.1 % (50.0-75.0); NRBC % 0.1 % (0.0-0.0); RBC 4.31 Mil/uL (3.80-5.20); RED CELL DISTRIBUTION WIDTH 17.1 % (11.5-14.5); WHITE BLOOD COUNT 6.5 K/uL (4.8-10.8)
[2018-04-10 10:51] LABS: ALB/GLOB RATIO 0.9 (1.0-2.1); ALBUMIN 3.3 g/dL (3.5-5.0); ALT/SGPT 21 U/L (9-52); AST/SGOT 22 U/L (14-36); BLOOD UREA NITROGEN 18 mg/dl (7-17); GFR NON-AFRICAN AMERICAN > 60
[2018-04-10 12:47] LABS: SQUAMOUS EPITHIAL 1 /hpf (0-5); URINE AMORPHOUS SEDIMENT RARE /ul (<OCC); URINE BACTERIA RARE (<OCC); URINE BILIRUBIN NEGATIVE (NEGATIVE); URINE BLOOD MODERATE (NEGATIVE); URINE CLARITY CLOUDY (Clear); URINE COLOR YELLOW (YELLOW); URINE GLUCOSE (UA) NEG (NEGATIVE); URINE LEUKOCYTE ESTERASE MOD Leu/uL (Negative); URINE PROTEIN 30 mg/dL (NEGATIVE); URINE UROBILINOGEN 0.2-1.0 mg/dL (0.2-1.0)
--- NOTE | 2018-04-10 15:56 | CP.PCM.PN ---
Subjective - Date & Time of Evaluation Date of Evaluation: 04/10/18 Time of Evaluation: 15:54 - Subjective Subjective: Patient says she is feeling better. She denies pain in her leg or hip. She follows some commands and answers some questions appropriately. Objective - Vital Signs/Intake and Output Vital Signs (last 24 hours): Temp Pulse Resp BP Pulse Ox 97.8 F 81 20 162/87 H 97 04/10/18 08:40 04/10/18 08:40 04/10/18 08:40 04/10/18 08:40 04/10/18 08:40 - Medications Medications: Current Medications Acetaminophen (Tylenol 325mg Tab) 650 mg PO QPM [facility] Last Admin: 04/09/18 18:15 Dose: 650 mg Acetaminophen (Tylenol 325mg Tab) 650 mg PO Q6 PRN PRN Reason: Pain, Mild (1-3) Last Admin: 04/10/18 05:06 Dose: 650 mg Cyclobenzaprine HCl (Flexeril) 5 mg PO Q12 [facility] Last Admin: 04/10/18 09:27 Dose: 5 mg Donepezil HCl (Aricept) 10 mg PO HS [facility] Last Admin: 04/09/18 21:02 Dose: 10 mg Enoxaparin Sodium (Lovenox) 40 mg SC DAILY [facility]; Protocol Last Admin: 04/10/18 09:28 Dose: 40 mg Haloperidol Lactate (Haldol) 0.5 mg IVP Q6 PRN PRN Reason: Agitation Last Admin: 04/08/18 23:22 Dose: 0.5 mg Home Med (Ibuprofen/Famotidine [Duexis 800-26.6 Mg Tablet]) 1 tab PO Q12 [facility] Memantine (Namenda) 5 mg PO DAILY [facility] Last Admin: 04/10/18 12:44 Dose: 5 mg Risperidone (Risperdal Tab) 0.5 mg PO Q12 [facility] Last Admin: 04/10/18 12:44 Dose: 0.5 mg - Labs Labs: 04/10/18 10:29 04/10/18 10:29 - Extremities Exam Additional comments: +ROM toes flex/ext, no tenderness obviously to calves, +DP/PT pulses, noted bump to anterior left tibia from old fracture, skin intact, no erythema, complains of pain with attempts at left hip/knee ROM Assessment and Plan (1) Pubic ramus fracture Assessment & Plan: ? acetabular fx and rami fx left on bed rest, now to start PT/OT for rehab placement VTE proph non operative orthopedically stable d/w Dr. Block, agrees wtih abvoe Status: Acute
[2018-04-10] MEDS ORDERED: Povidone Iodine Topical 10% Sol ONE (17:13)
[2018-04-10] MEDS: Ciprofloxacin 400mg/200ml D5W 400 MG/200 ML BAG IVPB SCH (20:34)
[2018-04-11] MEDS: Enoxaparin 40 mg Syringe SC SCH (08:44)
[2018-04-11] MEDS: Ciprofloxacin 400mg/200ml D5W 400 MG/200 ML BAG IVPB SCH ×2 (08:44→21:01)
--- NOTE | 2018-04-11 14:08 | CP.PCM.PN ---
Subjective - Date & Time of Evaluation Date of Evaluation: 04/11/18 Time of Evaluation: 14:00 - Subjective Subjective: S- pt markedly improved comfortable at bedrest Objective - Vital Signs/Intake and Output Vital Signs (last 24 hours): Temp Pulse Resp BP Pulse Ox 98.1 F 85 19 122/74 96 04/11/18 07:55 04/11/18 07:55 04/11/18 07:55 04/11/18 07:55 04/11/18 07:55 - Medications Medications: Current Medications Acetaminophen (Tylenol 325mg Tab) 650 mg PO QPM [facility] Last Admin: 04/10/18 17:46 Dose: 650 mg Acetaminophen (Tylenol 325mg Tab) 650 mg PO Q6 PRN PRN Reason: Pain, Mild (1-3) Last Admin: 04/10/18 05:06 Dose: 650 mg Cyclobenzaprine HCl (Flexeril) 5 mg PO Q12 [facility] Last Admin: 04/10/18 09:27 Dose: 5 mg Donepezil HCl (Aricept) 10 mg PO HS [facility] Last Admin: 04/10/18 21:34 Dose: 10 mg Enoxaparin Sodium (Lovenox) 40 mg SC DAILY [facility]; Protocol Last Admin: 04/11/18 08:44 Dose: 40 mg Haloperidol Lactate (Haldol) 0.5 mg IVP Q6 PRN PRN Reason: Agitation Last Admin: 04/08/18 23:22 Dose: 0.5 mg Home Med (Ibuprofen/Famotidine [Duexis 800-26.6 Mg Tablet]) 1 tab PO Q12 [facility] Ciprofloxacin (Cipro 400mg/200ml Dsw) 400 mg in 200 mls @ 200 mls/hr IVPB Q12 [facility]; Protocol Last Admin: 04/11/18 08:44 Dose: 200 mls/hr Memantine (Namenda) 5 mg PO DAILY [facility] Last Admin: 04/11/18 08:45 Dose: 5 mg Risperidone (Risperdal Tab) 0.5 mg PO Q12 [facility] Last Admin: 04/11/18 08:45 Dose: 0.5 mg - Labs Labs: 04/10/18 10:29 04/10/18 10:29 - Additional Findings Additional findings: objective systemic - wnl Musculoskekeltal stance/gait- defrred pt with painless ROM L tHR decreased tenderness to pelvic compression Assessment and Plan - Assessment and Plan (Free Text) Assessment: A- pelvic fx P- partial weight bearing eith walker cup position has moved but appears stable and is not symoptomativc orthopedcially stable imp- pelvic fx in accepTABLE POSITION
[2018-04-12] MEDS: Ciprofloxacin 400mg/200ml D5W 400 MG/200 ML BAG IVPB SCH ×2 (09:25→21:51)
[2018-04-12] MEDS: Enoxaparin 40 mg Syringe SC SCH (09:26)
[2018-04-13 06:31] LABS: HEMOGLOBIN 12.4 g/dL (12.0-16.0); MEAN CORPUSCULAR HEMOGLOBIN 29.5 pg (27.0-31.0); MEAN CORPUSCULAR HGB CONC 33.6 g/dL (33.0-37.0); RBC 4.21 Mil/uL (3.80-5.20); RED CELL DISTRIBUTION WIDTH 17.2 % (11.5-14.5); WHITE BLOOD COUNT 5.5 K/uL (4.8-10.8)
[2018-04-13 06:46] LABS: ALBUMIN 3.4 g/dL (3.5-5.0); ALT/SGPT 21 U/L (9-52); AST/SGOT 19 U/L (14-36); BLOOD UREA NITROGEN 20 mg/dl (7-17); CALCIUM 9.4 mg/dL (8.4-10.2); GFR NON-AFRICAN AMERICAN > 60
[2018-04-13] MEDS: Enoxaparin 40 mg Syringe SC SCH (09:25)
[2018-04-13] MEDS: Ciprofloxacin 400mg/200ml D5W 400 MG/200 ML BAG IVPB SCH (10:14)
[2018-04-13 12:10] LABS: GAMMA GLUTAMYL TRANSPEPTIDASE 25 U/L (8-78)
--- NOTE | 2018-04-13 12:32 | CP.PCM.PN ---
Subjective - Date & Time of Evaluation Date of Evaluation: 04/13/18 Time of Evaluation: 12:30 - Subjective Subjective: Patient more awake and alert today. Denies pain. Review of Systems - Review of Systems Systems not reviewed;Unavailable: Dementia All systems: reviewed and no additional remarkable complaints except Objective - Vital Signs/Intake and Output Vital Signs (last 24 hours): Temp Pulse Resp BP Pulse Ox 97.6 F 88 20 127/76 97 04/13/18 09:00 04/13/18 09:00 04/13/18 09:00 04/13/18 09:00 04/13/18 09:00 - Medications Medications: Current Medications Acetaminophen (Tylenol 325mg Tab) 650 mg PO QPM [facility] Last Admin: 04/12/18 17:49 Dose: 650 mg Acetaminophen (Tylenol 325mg Tab) 650 mg PO Q6 PRN PRN Reason: Pain, Mild (1-3) Last Admin: 04/10/18 05:06 Dose: 650 mg Ciprofloxacin (Cipro) 500 mg PO Q12 [facility] Stop: 04/16/18 09:57 Cyclobenzaprine HCl (Flexeril) 5 mg PO Q12 [facility] Last Admin: 04/10/18 09:27 Dose: 5 mg Donepezil HCl (Aricept) 10 mg PO HS [facility] Last Admin: 04/12/18 21:51 Dose: 10 mg Haloperidol Lactate (Haldol) 0.5 mg IVP Q6 PRN PRN Reason: Agitation Last Admin: 04/08/18 23:22 Dose: 0.5 mg Home Med (Ibuprofen/Famotidine [Duexis 800-26.6 Mg Tablet]) 1 tab PO Q12 [facility] Memantine (Namenda) 5 mg PO DAILY [facility] Last Admin: 04/13/18 09:25 Dose: 5 mg Risperidone (Risperdal Tab) 0.5 mg PO Q12 [facility] Last Admin: 04/13/18 09:25 Dose: 0.5 mg - Labs Labs: 04/13/18 06:15 04/13/18 06:15 - Constitutional Appears: Well, No Acute Distress - Head Exam Head Exam: ATRAUMATIC - Neck Exam Neck Exam: Full ROM, Normal Inspection - Respiratory Exam Respiratory Exam: NORMAL BREATHING PATTERN - Cardiovascular Exam Additional comments: +D/PT pulses - Extremities Exam Additional comments: less pain with left hip ROM today, does not complain with PROM calves soft NT neg homans - Neurological Exam Neurological Exam: Alert, Awake Neuro motor strength exam: Left Lower Extremity: 5 (+DF/PF, +ROM toes), Right Lower Extremity: 5 - Psychiatric Exam Psychiatric exam: Normal Affect, Normal Mood - Skin Skin Exam: Dry, Intact, Normal Color, Warm Assessment and Plan (1) Pubic ramus fracture Assessment & Plan: increase ot PWB LLE per Dr. Block PT notes appreciated, pt not able to tolerate NWB cont VTE proph' orthopedically stable for d/c, f/u Dr. Block in office in 7-10 days call for appt d/w Dr. Block, agrees with above Status: Acute
--- NOTE | 2018-04-14 14:52 | CP.PCM.PN ---
Subjective - Date & Time of Evaluation Date of Evaluation: 04/14/18 Time of Evaluation: 08:00 - Subjective Subjective: Seen and evaluated this morning at the bedside with Dr. Mayer. Alert and oriented. Appears calm. Denies complaints. Objective - Vital Signs/Intake and Output Vital Signs (last 24 hours): Temp Pulse Resp BP Pulse Ox 97.7 F 84 20 130/63 98 04/14/18 08:14 04/14/18 08:14 04/14/18 08:14 04/14/18 08:14 04/14/18 08:14 - Medications Medications: Current Medications Acetaminophen (Tylenol 325mg Tab) 650 mg PO QPM [facility] Last Admin: 04/13/18 17:32 Dose: 650 mg Acetaminophen (Tylenol 325mg Tab) 650 mg PO Q6 PRN PRN Reason: Pain, Mild (1-3) Last Admin: 04/10/18 05:06 Dose: 650 mg Ciprofloxacin (Cipro) 500 mg PO Q12 [facility] Stop: 04/16/18 09:57 Last Admin: 04/14/18 08:12 Dose: 500 mg Cyclobenzaprine HCl (Flexeril) 5 mg PO Q12 [facility] Last Admin: 04/10/18 09:27 Dose: 5 mg Donepezil HCl (Aricept) 10 mg PO HS [facility] Last Admin: 04/13/18 21:35 Dose: 10 mg Enoxaparin Sodium (Lovenox) 40 mg SC DAILY [facility]; Protocol Haloperidol (Haldol) 0.5 mg PO Q6 PRN PRN Reason: Agitation Last Admin: 04/13/18 22:31 Dose: 0.5 mg Home Med (Ibuprofen/Famotidine [Duexis 800-26.6 Mg Tablet]) 1 tab PO Q12 [facility] Memantine (Namenda) 5 mg PO DAILY [facility] Last Admin: 04/14/18 08:13 Dose: 5 mg Risperidone (Risperdal Tab) 0.5 mg PO Q12 [facility] Last Admin: 04/14/18 08:13 Dose: 0.5 mg - Labs Labs: 04/13/18 06:15 04/13/18 06:15 - Constitutional Appears: No Acute Distress - Head Exam Head Exam: NORMAL INSPECTION - Eye Exam Eye Exam: Normal appearance - ENT Exam ENT Exam: Mucous Membranes Moist - Respiratory Exam Respiratory Exam: Clear to Ausculation Bilateral - Cardiovascular Exam Cardiovascular Exam: REGULAR RHYTHM - GI/Abdominal Exam GI & Abdominal Exam: Normal Bowel Sounds - Extremities Exam Extremities Exam: absent: Pedal Edema - Neurological Exam Neurological Exam: Alert, Awake - Psychiatric Exam Psychiatric exam: Normal Affect. absent: Agitated - Skin Skin Exam: Normal Color Assessment and Plan - Assessment and Plan (Free Text) Assessment: Assessment: Pt is a 77 y/o female w/ hx of left total hip replacement, admitted s/p fall at home with subsequent fracture of superior pubic jones and pubic symphysis, and possible fracture adjacent to acetabular component of left hip prosthesis. Hip/Pelvis xray- no definite hip or pelvic fractures identified. Pelvic/Hip Fx -Ortho on board: bed rest unitl Friday/Friday, strict non weight bearing, DVT ppx -Dispo: placement pending into Subacute Rehab as per PT assessment UTI -Ucx + for Klebsiella -C/W Ciprofloxacin -No fevers or leukocytosis Dementia -Worsening as per family, has been having more frequent acute agitation/confusion episodes -As per psych recommendations, added Risperidone 0.5q12 and Memantine 5mg po daily -Haldol prn for agitation -C/W Aricept -U/A sent, f/u DVT ppx Lovenox
[2018-04-14] MEDS: Enoxaparin 40 mg Syringe SC SCH (15:38)
[2018-04-15] MEDS: Enoxaparin 40 mg Syringe SC SCH (09:26)
--- NOTE | 2018-04-15 14:40 | CP.PCM.PN ---
Subjective - Date & Time of Evaluation Date of Evaluation: 04/15/18 Time of Evaluation: 08:00 - Subjective Subjective: Pt seen and examined this am with Dr. Mayer. Appears comfortable. Confused. Laughing. No acute events notes overnight. Objective - Vital Signs/Intake and Output Vital Signs (last 24 hours): Temp Pulse Resp BP Pulse Ox 97.5 F L 88 18 124/66 95 04/15/18 09:00 04/15/18 09:00 04/15/18 09:00 04/15/18 09:00 04/15/18 09:00 - Medications Medications: Current Medications Acetaminophen (Tylenol 325mg Tab) 650 mg PO QPM [facility] Last Admin: 04/14/18 17:17 Dose: 650 mg Acetaminophen (Tylenol 325mg Tab) 650 mg PO Q6 PRN PRN Reason: Pain, Mild (1-3) Last Admin: 04/15/18 04:16 Dose: 650 mg Ciprofloxacin (Cipro) 500 mg PO Q12 [facility] Stop: 04/16/18 09:57 Last Admin: 04/15/18 09:26 Dose: 500 mg Cyclobenzaprine HCl (Flexeril) 5 mg PO Q12 [facility] Last Admin: 04/10/18 09:27 Dose: 5 mg Donepezil HCl (Aricept) 10 mg PO HS [facility] Last Admin: 04/14/18 21:01 Dose: 10 mg Enoxaparin Sodium (Lovenox) 40 mg SC DAILY [facility]; Protocol Last Admin: 04/15/18 09:26 Dose: 40 mg Haloperidol Lactate (Haldol) 0.5 mg PO Q6 PRN PRN Reason: Agitation Home Med (Ibuprofen/Famotidine [Duexis 800-26.6 Mg Tablet]) 1 tab PO Q12 [facility] Memantine (Namenda) 5 mg PO DAILY [facility] Last Admin: 04/15/18 09:27 Dose: 5 mg Risperidone (Risperdal Tab) 0.5 mg PO Q12 [facility] Last Admin: 04/15/18 09:27 Dose: 0.5 mg - Labs Labs: 04/13/18 06:15 04/13/18 06:15 - Constitutional Appears: No Acute Distress - Head Exam Head Exam: NORMAL INSPECTION - Eye Exam Eye Exam: Normal appearance - ENT Exam ENT Exam: Mucous Membranes Moist - Respiratory Exam Respiratory Exam: Clear to Ausculation Bilateral - Cardiovascular Exam Cardiovascular Exam: REGULAR RHYTHM - GI/Abdominal Exam GI & Abdominal Exam: Soft. absent: Tenderness - Extremities Exam Extremities Exam: absent: Pedal Edema - Neurological Exam Neurological Exam: Alert. absent: Oriented x3 - Skin Skin Exam: Normal Color Assessment and Plan - Assessment and Plan (Free Text) Assessment: Assessment: Pt is a 77 y/o female w/ hx of left total hip replacement, admitted s/p fall at home with subsequent fracture of superior pubic jones and pubic symphysis, and possible fracture adjacent to acetabular component of left hip prosthesis. Hip/Pelvis xray- no definite hip or pelvic fractures identified. Pelvic/Hip Fx -Ortho on board: bed rest unitl Friday/Friday, strict non weight bearing, DVT ppx -Dispo: placement pending into Subacute Rehab as per PT assessment but pt's insurance not allowing rehab days until 08/2018 Dementia -Worsening as per family, has been having more frequent acute agitation/confusion episodes -As per psych recommendations, added Risperidone 0.5q12 and Memantine 5mg po daily -Haldol prn for agitation -C/W Aricept -U/A sent, f/u DVT ppx Lovenox
--- NOTE | 2018-04-15 15:07 | CP.PCM.PN ---
Subjective - Date & Time of Evaluation Date of Evaluation: 04/15/18 Time of Evaluation: 12:00 - Subjective Subjective: Patient seen and examined at bedside comfortable. No complaints of pain at this time. Unable to ambulate with PT due to aggressive behavior, able to transfer to chair. No new complaints. Objective - Vital Signs/Intake and Output Vital Signs (last 24 hours): Temp Pulse Resp BP Pulse Ox 97.5 F L 88 18 124/66 95 04/15/18 09:00 04/15/18 09:00 04/15/18 09:00 04/15/18 09:00 04/15/18 09:00 - Medications Medications: Current Medications Acetaminophen (Tylenol 325mg Tab) 650 mg PO QPM [facility] Last Admin: 04/14/18 17:17 Dose: 650 mg Acetaminophen (Tylenol 325mg Tab) 650 mg PO Q6 PRN PRN Reason: Pain, Mild (1-3) Last Admin: 04/15/18 04:16 Dose: 650 mg Ciprofloxacin (Cipro) 500 mg PO Q12 [facility] Stop: 04/16/18 09:57 Last Admin: 04/15/18 09:26 Dose: 500 mg Cyclobenzaprine HCl (Flexeril) 5 mg PO Q12 [facility] Last Admin: 04/10/18 09:27 Dose: 5 mg Donepezil HCl (Aricept) 10 mg PO HS [facility] Last Admin: 04/14/18 21:01 Dose: 10 mg Enoxaparin Sodium (Lovenox) 40 mg SC DAILY [facility]; Protocol Last Admin: 04/15/18 09:26 Dose: 40 mg Haloperidol Lactate (Haldol) 0.5 mg PO Q6 PRN PRN Reason: Agitation Home Med (Ibuprofen/Famotidine [Duexis 800-26.6 Mg Tablet]) 1 tab PO Q12 [facility] Memantine (Namenda) 5 mg PO DAILY [facility] Last Admin: 04/15/18 09:27 Dose: 5 mg Risperidone (Risperdal Tab) 0.5 mg PO Q12 [facility] Last Admin: 04/15/18 09:27 Dose: 0.5 mg - Labs Labs: 04/13/18 06:15 04/13/18 06:15 - Extremities Exam Additional comments: LLE: minimal tenderness at groin no masses/erythema/drainage Hip incision well healed sensation intact SP/DP/TN motor intact EHL/FHL/TA/G pedal pulses intact calves soft NT b/l Assessment and Plan (1) Pubic ramus fracture Assessment & Plan: -PT/OT PWB with assistive device -DVT ppx -orthopedically stable for d/c to rehab -above d/w Dr. Block in agreement Status: Acute
[2018-04-15] MEDS: Haloperidol Lactate 2 mg/ml Liquid PO PRN (22:35)
[2018-04-16] MEDS: Enoxaparin 40 mg Syringe SC SCH (08:50)
--- NOTE | 2018-04-16 14:12 | CP.PCM.PN ---
Subjective - Date & Time of Evaluation Date of Evaluation: 04/16/18 Time of Evaluation: 08:00 - Subjective Subjective: Patient seen and examined at bedside comfortable. No complaints of pain. Admits to refusing PT yesterday. No new complaints. Objective - Vital Signs/Intake and Output Vital Signs (last 24 hours): Temp Pulse Resp BP Pulse Ox 98.2 F 75 20 186/99 H 97 04/16/18 09:11 04/16/18 09:11 04/16/18 09:11 04/16/18 09:11 04/16/18 09:11 - Medications Medications: Current Medications Acetaminophen (Tylenol 325mg Tab) 650 mg PO QPM [facility] [place] Last Admin: 04/15/18 17:19 Dose: 650 mg Acetaminophen (Tylenol 325mg Tab) 650 mg PO Q6 PRN PRN Reason: Pain, Mild (1-3) Last Admin: 04/15/18 04:16 Dose: 650 mg Cyclobenzaprine HCl (Flexeril) 5 mg PO Q12 [facility] Last Admin: 04/10/18 09:27 Dose: 5 mg Donepezil HCl (Aricept) 10 mg PO HS [facility] [place] Last Admin: 04/15/18 21:13 Dose: 10 mg Enoxaparin Sodium (Lovenox) 40 mg SC DAILY [facility] [place]; Protocol Last Admin: 04/16/18 08:50 Dose: 40 mg Haloperidol Lactate (Haldol) 0.5 mg PO Q6 PRN PRN Reason: Agitation Last Admin: 04/15/18 22:35 Dose: 0.5 mg Home Med (Ibuprofen/Famotidine [Duexis 800-26.6 Mg Tablet]) 1 tab PO Q12 [facility] [place] Memantine (Namenda) 5 mg PO DAILY [facility] [place] Last Admin: 04/16/18 08:50 Dose: 5 mg Risperidone (Risperdal Tab) 0.5 mg PO Q12 [facility] Last Admin: 04/16/18 08:50 Dose: 0.5 mg - Labs Labs: 04/13/18 06:15 04/13/18 06:15 - Extremities Exam Additional comments: LLE: no tenderness at groin no masses/erythema/drainage Hip incision well healed sensation intact SP/DP/TN motor intact EHL/FHL/TA/G pedal pulses intact calves soft NT b/l Assessment and Plan (1) Pubic ramus fracture Assessment & Plan: -Time was spent speaking to patient of the importance of OOB ambulating with PT. Patient more agreeable for PT -PWB with assistive device -DVT ppx -orthopedically stable for d/c to rehab -above d/w Dr. Block in agreement Status: Acute
--- NOTE | 2018-04-16 14:17 | CP.PCM.PN ---
Subjective - Date & Time of Evaluation Date of Evaluation: 04/16/18 Time of Evaluation: 09:00 - Subjective Subjective: Pt seen and examined this am with Dr. Mayer. No acute events overnight. Bed rest as per ortho, not eligible for rehab placement until 08/2017 as per insurance company. Objective - Vital Signs/Intake and Output Vital Signs (last 24 hours): Temp Pulse Resp BP Pulse Ox 98.2 F 75 20 186/99 H 97 04/16/18 09:11 04/16/18 09:11 04/16/18 09:11 04/16/18 09:11 04/16/18 09:11 - Medications Medications: Current Medications Acetaminophen (Tylenol 325mg Tab) 650 mg PO QPM [facility] Last Admin: 04/15/18 17:19 Dose: 650 mg Acetaminophen (Tylenol 325mg Tab) 650 mg PO Q6 PRN PRN Reason: Pain, Mild (1-3) Last Admin: 04/15/18 04:16 Dose: 650 mg Cyclobenzaprine HCl (Flexeril) 5 mg PO Q12 [facility] Last Admin: 04/10/18 09:27 Dose: 5 mg Donepezil HCl (Aricept) 10 mg PO HS [facility] Last Admin: 04/15/18 21:13 Dose: 10 mg Enoxaparin Sodium (Lovenox) 40 mg SC DAILY [facility]; Protocol Last Admin: 04/16/18 08:50 Dose: 40 mg Haloperidol Lactate (Haldol) 0.5 mg PO Q6 PRN PRN Reason: Agitation Last Admin: 04/15/18 22:35 Dose: 0.5 mg Home Med (Ibuprofen/Famotidine [Duexis 800-26.6 Mg Tablet]) 1 tab PO Q12 [facility] Memantine (Namenda) 5 mg PO DAILY [facility] Last Admin: 04/16/18 08:50 Dose: 5 mg Risperidone (Risperdal Tab) 0.5 mg PO Q12 [facility] Last Admin: 04/16/18 08:50 Dose: 0.5 mg - Labs Labs: 04/13/18 06:15 04/13/18 06:15 - Constitutional Appears: No Acute Distress - Head Exam Head Exam: NORMAL INSPECTION - Eye Exam Eye Exam: Normal appearance - ENT Exam ENT Exam: Mucous Membranes Moist - Neck Exam Neck Exam: Full ROM - Respiratory Exam Respiratory Exam: Clear to Ausculation Bilateral. absent: Rales, Wheezes - Cardiovascular Exam Cardiovascular Exam: REGULAR RHYTHM - GI/Abdominal Exam GI & Abdominal Exam: Soft. absent: Tenderness - Extremities Exam Extremities Exam: Normal Capillary Refill. absent: Pedal Edema - Neurological Exam Neurological Exam: Alert (confused at times) - Psychiatric Exam Psychiatric exam: Normal Affect. absent: Anxious - Skin Skin Exam: Normal Color Assessment and Plan - Assessment and Plan (Free Text) Assessment: Pt is a 77 y/o female w/ hx of left total hip replacement, admitted s/p fall at home with subsequent fracture of superior pubic jones and pubic symphysis, and possible fracture adjacent to acetabular component of left hip prosthesis. Hip/Pelvis xray- no definite hip or pelvic fractures identified. Bed rest as per ortho, not eligible for rehab placement until 08/2017 as per insurance company. Pelvic/Hip Fx -Ortho on board: bed rest unitl Friday/Friday, strict non weight bearing, DVT ppx -Dispo: placement pending into Subacute Rehab as per PT assessment Dementia -As frequent episodes of confusion -As per psych recommendations, added Risperidone 0.5q12 and Memantine 5mg po daily -Haldol prn for agitation -C/W Aricept UTI -Resolved -Ucx growing Klebsiella. Repeat Ucx no growth -S/P 3 days of Ciprofloxacin DVT ppx Lovenox
[2018-04-16] MEDS: Haloperidol Lactate 2 mg/ml Liquid PO PRN ×2 (16:17→21:53)
[2018-04-17 06:15] LABS: MEAN CELL VOLUME 87.7 fl (81.0-99.0); MEAN CORPUSCULAR HEMOGLOBIN 29.2 pg (27.0-31.0); MEAN CORPUSCULAR HGB CONC 33.3 g/dL (33.0-37.0); RBC 4.12 Mil/uL (3.80-5.20); RED CELL DISTRIBUTION WIDTH 17.2 % (11.5-14.5); WHITE BLOOD COUNT 7.2 K/uL (4.8-10.8)
[2018-04-17 06:44] LABS: ALB/GLOB RATIO 1.1 (1.0-2.1); ALBUMIN 3.4 g/dL (3.5-5.0); ALT/SGPT 21 U/L (9-52); AST/SGOT 21 U/L (14-36); BLOOD UREA NITROGEN 12 mg/dl (7-17); CALCIUM 9.1 mg/dL (8.4-10.2); GFR NON-AFRICAN AMERICAN > 60
[2018-04-17] MEDS: Haloperidol Lactate 2 mg/ml Liquid PO PRN ×3 (08:38→22:22)
[2018-04-17] MEDS: Enoxaparin 40 mg Syringe SC SCH (08:39)
[2018-04-17] MEDS: Megestrol Acetate 40 mg/ml Cup PO SCH (13:04)
--- NOTE | 2018-04-17 16:09 | CP.PCM.PN ---
Subjective - Date & Time of Evaluation Date of Evaluation: 04/17/18 Time of Evaluation: 11:00 - Subjective Subjective: patient seen and examined at bedside no complaints no events overnight Objective - Vital Signs/Intake and Output Vital Signs (last 24 hours): Temp Pulse Resp BP Pulse Ox 97.7 F 80 20 119/75 97 04/17/18 08:55 04/17/18 08:55 04/17/18 08:55 04/17/18 08:55 04/17/18 08:55 - Medications Medications: Current Medications Acetaminophen (Tylenol 325mg Tab) 650 mg PO QPM [facility] Last Admin: 04/16/18 18:41 Dose: 650 mg Acetaminophen (Tylenol 325mg Tab) 650 mg PO Q6 PRN PRN Reason: Pain, Mild (1-3) Last Admin: 04/15/18 04:16 Dose: 650 mg Cyclobenzaprine HCl (Flexeril) 5 mg PO Q12 [facility] Last Admin: 04/10/18 09:27 Dose: 5 mg Donepezil HCl (Aricept) 10 mg PO HS [facility] Last Admin: 04/16/18 21:14 Dose: 10 mg Enoxaparin Sodium (Lovenox) 40 mg SC DAILY [facility]; Protocol Last Admin: 04/17/18 08:39 Dose: 40 mg Haloperidol Lactate (Haldol) 0.5 mg PO Q6 PRN PRN Reason: Agitation Last Admin: 04/17/18 08:38 Dose: 0.5 mg Home Med (Ibuprofen/Famotidine [Duexis 800-26.6 Mg Tablet]) 1 tab PO Q12 [facility] Megestrol Acetate (Megace) 400 mg PO DAILY [facility] Last Admin: 04/17/18 13:04 Dose: Not Given Memantine (Namenda) 5 mg PO DAILY [facility] Last Admin: 04/17/18 08:40 Dose: 5 mg Risperidone (Risperdal Tab) 0.5 mg PO Q12 [facility] Last Admin: 04/17/18 08:40 Dose: 0.5 mg - Labs Labs: 04/17/18 05:30 04/17/18 05:30 - Constitutional Appears: Non-toxic, No Acute Distress - Head Exam Head Exam: NORMAL INSPECTION - Eye Exam Eye Exam: Normal appearance - Respiratory Exam Respiratory Exam: NORMAL BREATHING PATTERN - Cardiovascular Exam Cardiovascular Exam: +S1, +S2 - Psychiatric Exam Psychiatric exam: Normal Affect, Normal Mood - Skin Skin Exam: Normal Color, Warm Assessment and Plan - Assessment and Plan (Free Text) Assessment: dx pelvic/hip fx dementia plan not eligible for rehab placement until 08/2018 consultants appreciated c/w pt meds as ordered
[2018-04-18] MEDS: Enoxaparin 40 mg Syringe SC SCH (09:07)
[2018-04-18] MEDS: Megestrol Acetate 40 mg/ml Cup PO SCH (09:07)
[2018-04-19] MEDS: Enoxaparin 40 mg Syringe SC SCH (09:33)
[2018-04-19] MEDS: Megestrol Acetate 40 mg/ml Cup PO SCH (09:35)
[2018-04-20] MEDS: Enoxaparin 40 mg Syringe SC SCH ×3 (08:36→10:36)
[2018-04-20] MEDS: Megestrol Acetate 40 mg/ml Cup PO SCH ×2 (08:36→10:37)
--- NOTE | 2018-04-20 12:35 | CP.PCM.PN ---
Subjective - Date & Time of Evaluation Date of Evaluation: 04/20/18 Time of Evaluation: 12:32 - Subjective Subjective: Patient refusing PT. Patient encouraged participation and encouraged OOB at least once daily. Patient refused. Patient has refused last 4 attempts at PT. Patient was encouraged by daughter at prior visit, still refused. Objective - Vital Signs/Intake and Output Vital Signs (last 24 hours): Temp Pulse Resp BP Pulse Ox 97.5 F L 92 H 20 135/80 96 04/20/18 08:55 04/20/18 08:55 04/20/18 08:55 04/20/18 08:55 04/20/18 08:55 - Medications Medications: Current Medications Acetaminophen (Tylenol 325mg Tab) 650 mg PO QPM [facility] Last Admin: 04/19/18 17:16 Dose: 650 mg Acetaminophen (Tylenol 325mg Tab) 650 mg PO Q6 PRN PRN Reason: Pain, Mild (1-3) Last Admin: 04/15/18 04:16 Dose: 650 mg Cyclobenzaprine HCl (Flexeril) 5 mg PO Q12 [facility] Last Admin: 04/10/18 09:27 Dose: 5 mg Donepezil HCl (Aricept) 10 mg PO HS [facility] Last Admin: 04/19/18 21:09 Dose: 10 mg Enoxaparin Sodium (Lovenox) 40 mg SC DAILY [facility]; Protocol Last Admin: 04/20/18 10:36 Dose: 40 mg Famotidine (Pepcid) 20 mg PO BID [facility] Last Admin: 04/20/18 09:33 Dose: 20 mg Haloperidol Lactate (Haldol) 0.5 mg PO Q6 PRN PRN Reason: Agitation Last Admin: 04/17/18 22:22 Dose: 0.5 mg Megestrol Acetate (Megace) 400 mg PO DAILY [facility] Last Admin: 04/20/18 10:37 Dose: 400 mg Memantine (Namenda) 5 mg PO DAILY [facility] Last Admin: 04/20/18 08:36 Dose: 5 mg Risperidone (Risperdal Tab) 0.5 mg PO Q12 [facility] Last Admin: 04/20/18 08:37 Dose: 0.5 mg - Labs Labs: 04/17/18 05:30 04/17/18 05:30 Assessment and Plan (1) Pubic ramus fracture Assessment & Plan: PT/OT VTE proph needs SCDs encourage PT d/w Dr. Block, agrees with above Status: Acute
[2018-04-20] MEDS: Haloperidol Lactate 2 mg/ml Liquid PO PRN (21:01)
[2018-04-21] MEDS: Megestrol Acetate 40 mg/ml Cup PO SCH (09:06)
[2018-04-21] MEDS: Enoxaparin 40 mg Syringe SC SCH (09:06)
--- NOTE | 2018-04-21 11:45 | CP.PCM.PN ---
Subjective - Date & Time of Evaluation Date of Evaluation: 04/21/18 Time of Evaluation: 09:00 - Subjective Subjective: Patient seen and examined OOB to chair comfortable with daughter at bedside. No complaints of pain. No new complaints. Objective - Vital Signs/Intake and Output Vital Signs (last 24 hours): Temp Pulse Resp BP Pulse Ox 97.9 F 84 20 123/77 95 04/21/18 08:28 04/21/18 08:28 04/21/18 08:28 04/21/18 08:28 04/21/18 08:28 - Medications Medications: Current Medications Acetaminophen (Tylenol 325mg Tab) 650 mg PO QPM [facility] Last Admin: 04/20/18 17:04 Dose: 650 mg Acetaminophen (Tylenol 325mg Tab) 650 mg PO Q6 PRN PRN Reason: Pain, Mild (1-3) Last Admin: 04/20/18 23:33 Dose: 650 mg Cyclobenzaprine HCl (Flexeril) 5 mg PO Q12 [facility] Last Admin: 04/10/18 09:27 Dose: 5 mg Donepezil HCl (Aricept) 10 mg PO HS [facility] Last Admin: 04/20/18 21:00 Dose: 10 mg Enoxaparin Sodium (Lovenox) 40 mg SC DAILY [facility]; Protocol Last Admin: 04/21/18 09:06 Dose: 40 mg Famotidine (Pepcid) 20 mg PO BID [facility] Last Admin: 04/21/18 09:07 Dose: 20 mg Haloperidol Lactate (Haldol) 0.5 mg PO Q6 PRN PRN Reason: Agitation Last Admin: 04/20/18 21:01 Dose: 0.5 mg Megestrol Acetate (Megace) 400 mg PO DAILY [facility] Last Admin: 04/21/18 09:06 Dose: 400 mg Memantine (Namenda) 5 mg PO DAILY [facility] Last Admin: 04/21/18 09:06 Dose: 5 mg Risperidone (Risperdal Tab) 0.5 mg PO Q12 [facility] Last Admin: 04/21/18 09:07 Dose: 0.5 mg - Labs Labs: 04/17/18 05:30 04/17/18 05:30 - Extremities Exam Additional comments: LLE: no tenderness at groin no masses/erythema/drainage Hip incision well healed sensation intact SP/DP/TN motor intact EHL/FHL/TA/G pedal pulses intact calves soft NT b/l Assessment and Plan (1) Pubic ramus fracture Assessment & Plan: -patient will remain at [facility] until medicaid active in 08/2018 as per SW -Reinforced importance of PT with patient and daughter, they agree -PT/OT PWB with assistive device -DVT ppx -orthopedically stable -above d/w Dr. Block in agreement Status: Acute
[2018-04-21] MEDS: Haloperidol Lactate 2 mg/ml Liquid PO PRN (22:57)
[2018-04-22] MEDS: Enoxaparin 40 mg Syringe SC SCH (09:32)
[2018-04-22] MEDS: Megestrol Acetate 40 mg/ml Cup PO SCH (09:32)
--- NOTE | 2018-04-22 17:17 | CP.PCM.PN ---
Subjective - Date & Time of Evaluation Date of Evaluation: 04/22/18 Time of Evaluation: 11:00 - Subjective Subjective: Patient seen and examined OOB to chair comfortable. No c/o pain. Able to ambulate with PT to door today. No other complaints. Objective - Vital Signs/Intake and Output Vital Signs (last 24 hours): Temp Pulse Resp BP Pulse Ox 98.1 F 88 18 115/69 98 04/22/18 16:02 04/22/18 16:02 04/22/18 16:02 04/22/18 16:02 04/22/18 16:02 - Medications Medications: Current Medications Acetaminophen (Tylenol 325mg Tab) 650 mg PO QPM [facility] Last Admin: 04/21/18 17:01 Dose: 650 mg Acetaminophen (Tylenol 325mg Tab) 650 mg PO Q6 PRN PRN Reason: Pain, Mild (1-3) Last Admin: 04/20/18 23:33 Dose: 650 mg Cyclobenzaprine HCl (Flexeril) 5 mg PO Q12 [facility] Last Admin: 04/10/18 09:27 Dose: 5 mg Donepezil HCl (Aricept) 10 mg PO HS [facility] Last Admin: 04/21/18 21:00 Dose: 10 mg Enoxaparin Sodium (Lovenox) 40 mg SC DAILY [facility]; Protocol Last Admin: 04/22/18 09:32 Dose: 40 mg Famotidine (Pepcid) 20 mg PO BID [facility] Last Admin: 04/22/18 16:33 Dose: 20 mg Haloperidol Lactate (Haldol) 0.5 mg PO Q6 PRN PRN Reason: Agitation Last Admin: 04/21/18 22:57 Dose: 0.5 mg Megestrol Acetate (Megace) 400 mg PO DAILY [facility] Last Admin: 04/22/18 09:32 Dose: 400 mg Memantine (Namenda) 5 mg PO DAILY [facility] Last Admin: 04/22/18 09:33 Dose: 5 mg Risperidone (Risperdal Tab) 0.5 mg PO Q12 [facility] Last Admin: 04/22/18 09:33 Dose: 0.5 mg - Labs Labs: 04/17/18 05:30 04/17/18 05:30 - Extremities Exam Additional comments: LLE: no tenderness at groin no masses/erythema/drainage Hip incision well healed sensation intact SP/DP/TN motor intact EHL/FHL/TA/G pedal pulses intact calves soft NT b/l Assessment and Plan (1) Pubic ramus fracture Assessment & Plan: -patient will remain at [facility] until medicaid active in 08/2018 as per SW -PT/OT PWB with assistive device -DVT ppx -orthopedically stable -above d/w Dr. Block in agreement Status: Acute
[2018-04-22] MEDS: Haloperidol Lactate 2 mg/ml Liquid PO PRN (21:09)
[2018-04-23] MEDS: Megestrol Acetate 40 mg/ml Cup PO SCH (08:23)
[2018-04-23] MEDS: Enoxaparin 40 mg Syringe SC SCH (08:23)
[2018-04-23] MEDS: Haloperidol Lactate 2 mg/ml Liquid PO PRN (21:10)
[2018-04-24] MEDS: Enoxaparin 40 mg Syringe SC SCH (09:42)
[2018-04-24] MEDS: Megestrol Acetate 40 mg/ml Cup PO SCH (09:47)
--- NOTE | 2018-04-24 10:47 | CP.PCM.PN ---
Subjective - Date & Time of Evaluation Date of Evaluation: 04/24/18 Time of Evaluation: 09:00 - Subjective Subjective: Patient agreed to participate in PT on 04/22. Ambulated 20 ft. Patient again encouraged OOB and PT. She denies any increasd pain in hip with PT Review of Systems - Review of Systems All systems: reviewed and no additional remarkable complaints except - Cardiovascular Cardiovascular: UNREMARKABLE - Respiratory Respiratory: UNREMARKABLE - Genitourinary Genitourinary: UNREMARKABLE - Musculoskeletal Musculoskeletal: As Par HPI - Integumentary Integumentary: UNREMARKABLE - Neurological Neurological: UNREMARKABLE - Hematologic/Lymphatic Hematologic: UNREMARKABLE Objective - Vital Signs/Intake and Output Vital Signs (last 24 hours): Temp Pulse Resp BP Pulse Ox 97.1 F L 58 L 20 122/75 96 04/24/18 08:09 04/24/18 08:09 04/24/18 08:09 04/24/18 08:09 04/24/18 08:09 - Medications Medications: Current Medications Acetaminophen (Tylenol 325mg Tab) 650 mg PO QPM [facility] Last Admin: 04/23/18 17:31 Dose: 650 mg Acetaminophen (Tylenol 325mg Tab) 650 mg PO Q6 PRN PRN Reason: Pain, Mild (1-3) Last Admin: 04/24/18 06:35 Dose: 650 mg Cyclobenzaprine HCl (Flexeril) 5 mg PO Q12 [facility] Last Admin: 04/10/18 09:27 Dose: 5 mg Donepezil HCl (Aricept) 10 mg PO HS [facility] Last Admin: 04/23/18 21:09 Dose: 10 mg Enoxaparin Sodium (Lovenox) 40 mg SC DAILY [facility]; Protocol Last Admin: 04/24/18 09:42 Dose: 40 mg Famotidine (Pepcid) 20 mg PO BID [facility] Last Admin: 04/24/18 09:48 Dose: 20 mg Haloperidol Lactate (Haldol) 0.5 mg PO Q6 PRN PRN Reason: Agitation Last Admin: 04/23/18 21:10 Dose: 0.5 mg Megestrol Acetate (Megace) 400 mg PO DAILY [facility] Last Admin: 04/24/18 09:47 Dose: 400 mg Memantine (Namenda) 5 mg PO DAILY [facility] Last Admin: 04/24/18 09:48 Dose: 5 mg Risperidone (Risperdal Tab) 0.5 mg PO Q12 [facility] Last Admin: 04/24/18 09:48 Dose: 0.5 mg - Labs Labs: 04/17/18 05:30 04/17/18 05:30 - Constitutional Appears: Well, No Acute Distress - Head Exam Head Exam: ATRAUMATIC - Respiratory Exam Respiratory Exam: NORMAL BREATHING PATTERN - Cardiovascular Exam Additional comments: +DP/PT - Extremities Exam Additional comments: calves soft NT neg homans +Dp/PT pulses - Neurological Exam Neurological Exam: Alert, Awake Neuro motor strength exam: Left Lower Extremity: 5, Right Lower Extremity: 5 - Psychiatric Exam Psychiatric exam: Normal Affect, Normal Mood - Skin Skin Exam: Dry, Intact, Normal Color, Warm Assessment and Plan (1) Pubic ramus fracture Assessment & Plan: PT/OT OOB VTE proph ortho stable d/w Dr. Block, agrees wi above Status: Acute
--- NOTE | 2018-04-24 12:10 | PN ---
DATE: 04/24/2018 SUBJECTIVE: The patient seen and examined. Interim events noted. The patient remains in regular medical floor. Denies any specific complaint, although the patient is not a good historian. PHYSICAL EXAMINATION: GENERAL: The patient is in no acute distress. VITAL SIGNS: Stable. HEART: S1, S2 normal and regular. LUNGS: Good bilateral air exchange. ABDOMEN: Soft, nontender. EXTREMITIES: The patient is status post surgery. No edema. No calf swelling. No tenderness. No acute ischemia. CENTRAL NERVOUS SYSTEM: Essentially unchanged. DIAGNOSTIC DATA: Available diagnostic data reviewed. ASSESSMENT AND PLAN: Overall, the patient's general medical condition is stable. Plan as ordered. Eugenio Fernandez MD
--- NOTE | 2018-04-24 12:19 | PN ---
DATE: 04/23/2018 SUBJECTIVE: The patient seen and examined. The patient seen for Dr. Umanzor. The patient remains in regular medical floor. Awake, responsive, feels okay. Denies any specific complaint of chest pain or shortness of breath. His pain is adequately controlled. PHYSICAL EXAMINATION: GENERAL: The patient is in no acute distress. VITAL SIGNS: Stable. HEART: S1 and S2, normal and regular. LUNGS: Good bilateral air exchange. ABDOMEN: Soft and nontender. EXTREMITIES: No edema. No calf swelling. No tenderness. No acute ischemia. CENTRAL NERVOUS SYSTEM: Exam is essentially unchanged. DIAGNOSTIC DATA: Available diagnostic data reviewed. ASSESSMENT AND PLAN: Overall, the patient's general medical condition is stable. Plan as ordered. Eugenio Fernandze MD
[2018-04-24] MEDS: Haloperidol Lactate 2 mg/ml Liquid PO PRN (23:54)
[2018-04-25] MEDS: Enoxaparin 40 mg Syringe SC SCH (08:20)
[2018-04-25] MEDS: Megestrol Acetate 40 mg/ml Cup PO SCH (08:20)
--- NOTE | 2018-04-25 09:56 | PN ---
DATE: 04/25/2018 SUBJECTIVE: The patient is seen and examined. Interim events noted. Orthopedic followup and intervention noted and appreciated. The patient started cooperation with physical therapy and is ambulating. Denies any specific complaint of chest pain or shortness of breath. No specific issue reported by nursing staff. PHYSICAL EXAMINATION: GENERAL: The patient is in no acute distress. VITAL SIGNS: Stable. Physical exam is essentially unchanged. DIAGNOSTIC DATA: Available diagnostic data reviewed. ASSESSMENT AND PLAN: Overall, the patient's general medical condition is stable. Plan as ordered. Eugenio Fernandez MD
[2018-04-26] MEDS: Haloperidol Lactate 2 mg/ml Liquid PO PRN ×2 (00:22→19:47)
[2018-04-26] MEDS: Megestrol Acetate 40 mg/ml Cup PO SCH (09:33)
[2018-04-26 14:03] LABS: INR 0.9
[2018-04-26 14:05] LABS: PARTIAL THROMBOPLASTIN TIME 25.5 Seconds (25.6-37.1)
[2018-04-26 14:26] LABS: PROTHROMBIN TIME 9.9 Seconds (9.8-13.1)
[2018-04-26 19:13] LABS: BLOOD UREA NITROGEN 19 mg/dl (7-17); CALCIUM 8.8 mg/dL (8.4-10.2); GFR NON-AFRICAN AMERICAN > 60
[2018-04-27 06:10] LABS: HEMOGLOBIN 10.4 g/dL (12.0-16.0); MEAN CELL VOLUME 90.6 fl (81.0-99.0); MEAN CORPUSCULAR HEMOGLOBIN 29.4 pg (27.0-31.0); MEAN CORPUSCULAR HGB CONC 32.5 g/dL (33.0-37.0); RBC 3.53 Mil/uL (3.80-5.20); RED CELL DISTRIBUTION WIDTH 17.7 % (11.5-14.5); WHITE BLOOD COUNT 6.5 K/uL (4.8-10.8)
[2018-04-27] MEDS: Megestrol Acetate 40 mg/ml Cup PO SCH (08:15)
[2018-04-27] MEDS: Enoxaparin 40 mg Syringe SC SCH (11:01)
[2018-04-27] MEDS: Haloperidol Lactate 2 mg/ml Liquid PO PRN (20:52)
[2018-04-28] MEDS: Enoxaparin 40 mg Syringe SC SCH (08:29)
[2018-04-28] MEDS: Megestrol Acetate 40 mg/ml Cup PO SCH (08:29)
[2018-04-28] MEDS: Haloperidol Lactate 2 mg/ml Liquid PO PRN ×2 (08:31→23:50)
[2018-04-29] MEDS: Enoxaparin 40 mg Syringe SC SCH (08:39)
[2018-04-29] MEDS: Megestrol Acetate 40 mg/ml Cup PO SCH (08:40)
--- NOTE | 2018-04-29 10:24 | CP.PCM.PN ---
Subjective - Date & Time of Evaluation Date of Evaluation: 04/29/18 Time of Evaluation: 10:21 - Subjective Subjective: Patient with daughter at bedside. Says she is complaining of a lot of pain today in bed and in the chair, but did take a few steps with PT. Review of Systems - Review of Systems All systems: reviewed and no additional remarkable complaints except - Cardiovascular Cardiovascular: UNREMARKABLE - Respiratory Respiratory: UNREMARKABLE - Gastrointestinal Gastrointestinal: UNREMARKABLE - Musculoskeletal Musculoskeletal: As Par HPI - Integumentary Integumentary: UNREMARKABLE - Neurological Neurological: UNREMARKABLE - Hematologic/Lymphatic Hematologic: UNREMARKABLE Objective - Vital Signs/Intake and Output Vital Signs (last 24 hours): Temp Pulse Resp BP Pulse Ox 98.6 F 69 20 130/72 95 04/29/18 08:02 04/29/18 08:02 04/29/18 08:02 04/29/18 08:02 04/29/18 08:02 - Medications Medications: Current Medications Acetaminophen (Tylenol 325mg Tab) 650 mg PO QPM [facility] Last Admin: 04/28/18 17:04 Dose: 650 mg Acetaminophen (Tylenol 325mg Tab) 650 mg PO Q6 PRN PRN Reason: Pain, Mild (1-3) Last Admin: 04/29/18 09:33 Dose: 650 mg Clotrimazole (Lotrimin 1% Cream) 1 applic TOP BID [facility] Last Admin: 04/29/18 09:24 Dose: 1 applic Cyclobenzaprine HCl (Flexeril) 5 mg PO Q12 [facility] Last Admin: 04/10/18 09:27 Dose: 5 mg Donepezil HCl (Aricept) 10 mg PO HS [facility] Last Admin: 04/28/18 21:11 Dose: 10 mg Enoxaparin Sodium (Lovenox) 40 mg SC DAILY [facility]; Protocol Last Admin: 04/29/18 08:39 Dose: 40 mg Famotidine (Pepcid) 20 mg PO BID [facility] Last Admin: 04/29/18 08:41 Dose: 20 mg Haloperidol Lactate (Haldol) 0.5 mg PO Q6 PRN PRN Reason: Agitation Last Admin: 04/28/18 23:50 Dose: 0.5 mg Megestrol Acetate (Megace) 400 mg PO DAILY [facility] Last Admin: 04/29/18 08:40 Dose: 400 mg Memantine (Namenda) 5 mg PO DAILY [facility] Last Admin: 04/29/18 08:40 Dose: 5 mg Risperidone (Risperdal Tab) 0.5 mg PO Q12 [facility] Last Admin: 04/29/18 08:43 Dose: 0.5 mg - Labs Labs: 04/27/18 05:55 04/26/18 18:40 PT 9.9 Seconds (9.8-13.1) 04/26/18 13:47 INR 0.9 04/26/18 13:47 APTT 25.5 Seconds (25.6-37.1) L 04/26/18 13:47 - Constitutional Appears: Well, No Acute Distress - Head Exam Head Exam: ATRAUMATIC - Extremities Exam Additional comments: calves soft NT neg homans - Neurological Exam Neurological Exam: Alert, Awake Neuro motor strength exam: Left Lower Extremity: 5 - Psychiatric Exam Psychiatric exam: Normal Affect, Normal Mood - Skin Skin Exam: Dry, Intact, Normal Color, Warm Assessment and Plan (1) Pubic ramus fracture Assessment & Plan: cont PT/OT Vte PROPH encourage OOB d/c planning encourage participation with PT d/w Dr. Block, agrees with above Status: Acute
--- NOTE | 2018-04-29 13:38 | CP.PCM.CON ---
History of Present Illness - History of Present Illness History of Present Illness: consult requested for possible depression 77 year old female with a PMHx breast cancer s/p chemo and radiation therapy, dementia and left total hip replacement admitted for falls at home and disorientation at times pt on evaluation seen in bed, cooperative , good eye contact, reported mood is fine, stated the pain has been much less, affect appropriate to thought content, speech is over productive but not goal directed, thought process is tangential, patient denied any current changes in sleep or appetite, denied percptual distur bances, non elicited , denied suicidal or homicidal ideation, alert , awake, confused oriented to person only Past Patient History - Infectious Disease Hx of Infectious Diseases: None - Past Medical History & Family History Past Medical History?: Yes Past Family History: Reviewed and not pertinent - Past Social History Alcohol: None Drugs: Denies - CARDIAC Hx Cardiac Disorders: No - PULMONARY Hx Pneumonia: Yes - NEUROLOGICAL Hx Dementia: Yes - HEENT Hx HEENT Problems: No - RENAL Hx Chronic Kidney Disease: No - ENDOCRINE/METABOLIC Hx Endocrine Disorders: No - HEMATOLOGICAL/ONCOLOGICAL Hx Human Immunodeficiency Virus (HIV): No - INTEGUMENTARY Hx Dermatological Problems: No - MUSCULOSKELETAL/RHEUMATOLOGICAL Hx Musculoskeletal Disorders: Yes Hx Falls: Yes Hx Osteoarthritis: Yes - GASTROINTESTINAL Hx Gastrointestinal Disorders: No - GENITOURINARY/GYNECOLOGICAL Hx Genitourinary Disorders: No - PSYCHIATRIC Hx Psychophysiologic Disorder: No Hx Substance Use: No - SURGICAL HISTORY Hx Cholecystectomy: Yes - ANESTHESIA Hx Anesthesia: Yes Hx Anesthesia Reactions: No Hx Malignant Hyperthermia: No Meds Allergies/Adverse Reactions: Allergies Allergy/AdvReac Type Severity Reaction Status Date / Time narcotic Allergy RASH Uncoded 04/05/18 20:51 - Medications Medications: Current Medications Acetaminophen (Tylenol 325mg Tab) 650 mg PO QPM [facility] Last Admin: 04/28/18 17:04 Dose: 650 mg Acetaminophen (Tylenol 325mg Tab) 650 mg PO Q6 PRN PRN Reason: Pain, Mild (1-3) Last Admin: 04/29/18 09:33 Dose: 650 mg Clotrimazole (Lotrimin 1% Cream) 1 applic TOP BID [facility] Last Admin: 04/29/18 09:24 Dose: 1 applic Cyclobenzaprine HCl (Flexeril) 5 mg PO Q12 [facility] Last Admin: 04/10/18 09:27 Dose: 5 mg Donepezil HCl (Aricept) 10 mg PO HS [facility] Last Admin: 04/28/18 21:11 Dose: 10 mg Enoxaparin Sodium (Lovenox) 40 mg SC DAILY [facility]; Protocol Last Admin: 04/29/18 08:39 Dose: 40 mg Famotidine (Pepcid) 20 mg PO BID [facility] Last Admin: 04/29/18 08:41 Dose: 20 mg Haloperidol Lactate (Haldol) 0.5 mg PO Q6 PRN PRN Reason: Agitation Last Admin: 04/28/18 23:50 Dose: 0.5 mg Megestrol Acetate (Megace) 400 mg PO DAILY [facility] Last Admin: 04/29/18 08:40 Dose: 400 mg Memantine (Namenda) 5 mg PO DAILY [facility] Last Admin: 04/29/18 08:40 Dose: 5 mg Risperidone (Risperdal Tab) 0.5 mg PO Q12 [facility] Last Admin: 04/29/18 08:43 Dose: 0.5 mg Results - Vital Signs Recent Vital Signs: Last Vital Signs Temp 98.6 F 04/29/18 08:02 Pulse 69 04/29/18 08:02 Resp 20 04/29/18 08:02 BP 130/72 04/29/18 08:02 Pulse Ox 95 04/29/18 08:02 - Labs Result Diagrams: 04/27/18 05:55 04/26/18 18:40 Assessment & Plan - Assessment and Plan (Free Text) Assessment: major neurocognitive disorder Plan: pt at current mental status denied any symptoms of depression continue current management with aricept and risperidone
[2018-04-30] MEDS: Megestrol Acetate 40 mg/ml Cup PO SCH (08:25)
[2018-04-30] MEDS: Enoxaparin 40 mg Syringe SC SCH (08:25)
--- NOTE | 2018-05-01 08:05 | CP.PCM.PN ---
Subjective - Date & Time of Evaluation Date of Evaluation: 05/01/18 Time of Evaluation: 08:05 - Subjective Subjective: Patient seen and examined at bedside comfortable. No complaints of pain at this time, however poor historian due to dementia. Nurse reports unwitnessed fall overnight, found on knees on floor. No LOC/dizziness or other injuries. No oth er complaints. Medical insurance pending. Objective - Vital Signs/Intake and Output Vital Signs (last 24 hours): Temp Pulse Resp BP Pulse Ox 97.8 F 78 18 115/75 96 05/01/18 00:11 05/01/18 00:11 05/01/18 00:11 05/01/18 00:11 05/01/18 00:11 - Medications Medications: Current Medications Acetaminophen (Tylenol 325mg Tab) 650 mg PO QPM [facility] Last Admin: 04/30/18 17:10 Dose: 650 mg Acetaminophen (Tylenol 325mg Tab) 650 mg PO Q6 PRN PRN Reason: Pain, Mild (1-3) Last Admin: 04/29/18 09:33 Dose: 650 mg Clotrimazole (Lotrimin 1% Cream) 1 applic TOP BID [facility] Last Admin: 04/30/18 17:08 Dose: 1 applic Cyclobenzaprine HCl (Flexeril) 5 mg PO Q12 [facility] Last Admin: 04/10/18 09:27 Dose: 5 mg Donepezil HCl (Aricept) 10 mg PO HS [facility] Last Admin: 04/30/18 21:07 Dose: 10 mg Enoxaparin Sodium (Lovenox) 40 mg SC DAILY [facility]; Protocol Last Admin: 04/30/18 08:25 Dose: 40 mg Famotidine (Pepcid) 20 mg PO BID [facility] Last Admin: 04/30/18 17:08 Dose: 20 mg Haloperidol Lactate (Haldol) 0.5 mg PO Q6 PRN PRN Reason: Agitation Last Admin: 04/28/18 23:50 Dose: 0.5 mg Megestrol Acetate (Megace) 400 mg PO DAILY [facility] Last Admin: 04/30/18 08:25 Dose: 400 mg Memantine (Namenda) 5 mg PO DAILY [facility] Last Admin: 04/30/18 08:26 Dose: 5 mg Risperidone (Risperdal Tab) 0.5 mg PO Q12 [facility] Last Admin: 04/30/18 21:07 Dose: 0.5 mg - Labs Labs: 04/27/18 05:55 04/26/18 18:40 PT 9.9 Seconds (9.8-13.1) 04/26/18 13:47 INR 0.9 04/26/18 13:47 APTT 25.5 Seconds (25.6-37.1) L 04/26/18 13:47 - Extremities Exam Additional comments: L hip: no tenderness at groin no masses/erythema/drainage Hip incision well healed sensation intact SP/DP/TN motor intact EHL/FHL/TA/G pedal pulses intact calves soft NT b/l L knee: mild swelling, no ecchymosis, no lesions, no deformity valgus alignment gross NVI mild tenderness diffuse medially R knee mild swelling, no ecchymosis, no lesions, no deformity valgus alignment gross NVI no tenderness with palpation Assessment and Plan (1) Pubic ramus fracture Assessment & Plan: -patient will remain at [facility], medicaid pending -PT/OT PWB with assistive device -DVT ppx -orthopedically stable -above d/w Dr. Block in agreement Status: Acute (2) Knee contusion Assessment & Plan: -Bilateral xrays ordered -exam unremarkable -ice and elevate prn -continue PT/OT -above d/w Dr. Block in agreement Status: Acute
[2018-05-01] MEDS: Enoxaparin 40 mg Syringe SC SCH (09:16)
[2018-05-01] MEDS: Megestrol Acetate 40 mg/ml Cup PO SCH (09:17)
--- NOTE | 2018-05-01 14:59 | RAD ---
Date of service: 05/01/2018 PROCEDURE: Bilateral Knee Radiographs. HISTORY: s/p fall COMPARISON: None. FINDINGS: BONES: Right knee: No evidence of acute displaced fracture nor dislocation. The osseous structures appear intact. No cortical destructive changes are identified Left knee: Proximal aspect in situ intramedullary fixation jean right femoral meta diaphysis and diaphysis with 2 transversely oriented threaded fixation screws. Hardware appears intact. There is mild joint space narrowing. Small posterior patella osteophyte formation noted. JOINTS: Right Knee: Tricompartmental degenerative osteoarthritis most severely affecting the lateral and medial compartments.. Left knee: Mild joint space narrowing most notably affecting the medial compartment... SOFT TISSUES: Right Knee: Normal. Left Knee: Normal. JOINT EFFUSION: Right Knee: Small suprapatellar joint effusion. Left Knee: Tiny suprapatellar joint effusion OTHER FINDINGS: None. IMPRESSION: No evidence of acute displaced fracture nor dislocation. Significant osteoarthritis right knee and mild osteoarthritis left knee as detailed above. Intramedullary fixation jean proximal left femur. Small right and tiny left suprapatellar joint effusions.
--- NOTE | 2018-05-01 17:30 | CP.PCM.PCO ---
Addendum Addendum: Provider called by nurse around 1:10 am to evaluated patient after found her kneeling in the floor at bedside. Patient was assisted to bed by two RNs. As per nurse bed alarm was off. Patient seen and examined at bedside lying comfortable on bed, Patient reported she was trying to accommodate her socks when she slipped from the bed and fell on her knees. Denies hit her head, also denies knee or hip pain at this time. At physical exam VSS, no acute distress AAO x3 Lungs clear to auscultation CVS: RRR, +s1 s2 MSK: no erythema, edema or deformity appreciated, no tenderness on knee, hips b/l. Plan: Monitor for pain, edema or bruises
[2018-05-02] MEDS: Haloperidol Lactate 2 mg/ml Liquid PO PRN ×2 (03:44→23:50)
[2018-05-02] MEDS: Enoxaparin 40 mg Syringe SC SCH (09:32)
[2018-05-02] MEDS: Megestrol Acetate 40 mg/ml Cup PO SCH (09:32)
[2018-05-03] MEDS: Enoxaparin 40 mg Syringe SC SCH (08:31)
[2018-05-03] MEDS: Megestrol Acetate 40 mg/ml Cup PO SCH (08:31)
[2018-05-03] MEDS: Haloperidol Lactate 2 mg/ml Liquid PO PRN ×2 (12:31→21:02)
[2018-05-04] MEDS: Enoxaparin 40 mg Syringe SC SCH (08:43)
[2018-05-04] MEDS: Megestrol Acetate 40 mg/ml Cup PO SCH (08:44)
--- NOTE | 2018-05-04 08:52 | CP.PCM.PN ---
Subjective - Date & Time of Evaluation Date of Evaluation: 05/04/18 Time of Evaluation: 07:30 - Subjective Subjective: Patient seen and examined at bedside comfortable. Pain well controlled. No new complaints. No acute events over the weekend. Objective - Vital Signs/Intake and Output Vital Signs (last 24 hours): Temp Pulse Resp BP Pulse Ox 97.7 F 76 20 122/67 98 05/04/18 08:17 05/04/18 08:17 05/04/18 08:17 05/04/18 08:17 05/04/18 08:17 - Medications Medications: Current Medications Acetaminophen (Tylenol 325mg Tab) 650 mg PO QPM [facility] Last Admin: 05/03/18 17:04 Dose: 650 mg Acetaminophen (Tylenol 325mg Tab) 650 mg PO Q6 PRN PRN Reason: Pain, Mild (1-3) Last Admin: 05/04/18 04:08 Dose: 650 mg Clotrimazole (Lotrimin 1% Cream) 1 applic TOP BID [facility] Last Admin: 05/04/18 08:44 Dose: 1 applic Cyclobenzaprine HCl (Flexeril) 5 mg PO Q12 [facility] Last Admin: 04/10/18 09:27 Dose: 5 mg Donepezil HCl (Aricept) 10 mg PO HS [facility] Last Admin: 05/03/18 21:01 Dose: 10 mg Enoxaparin Sodium (Lovenox) 40 mg SC DAILY [facility]; Protocol Last Admin: 05/04/18 08:43 Dose: 40 mg Famotidine (Pepcid) 20 mg PO BID [facility] Last Admin: 05/04/18 08:44 Dose: 20 mg Haloperidol Lactate (Haldol) 0.5 mg PO Q6 PRN PRN Reason: Agitation Last Admin: 05/03/18 21:02 Dose: 0.5 mg Megestrol Acetate (Megace) 400 mg PO DAILY [facility] Last Admin: 05/04/18 08:44 Dose: 400 mg Memantine (Namenda) 5 mg PO DAILY [facility] Last Admin: 05/04/18 08:44 Dose: 5 mg Risperidone (Risperdal Tab) 0.5 mg PO Q12 [facility] Last Admin: 05/04/18 08:44 Dose: 0.5 mg - Labs Labs: 04/27/18 05:55 04/26/18 18:40 PT 9.9 Seconds (9.8-13.1) 04/26/18 13:47 INR 0.9 04/26/18 13:47 APTT 25.5 Seconds (25.6-37.1) L 04/26/18 13:47 - Extremities Exam Additional comments: L hip: no tenderness at groin Hip incision well healed sensation intact SP/DP/TN motor intact EHL/FHL/TA/G pedal pulses intact calves soft NT b/l L knee: mild swelling, no ecchymosis, no lesions, no deformity valgus alignment gross NVI no tenderness R knee mild swelling, no ecchymosis, no lesions, no deformity valgus alignment gross NVI no tenderness with palpation Assessment and Plan (1) Pubic ramus fracture Assessment & Plan: -medicaid pending, placement pending -PT/OT PWB with assistive device -DVT ppx -orthopedically stable -above d/w Dr. Block in agreement Status: Acute (2) Knee contusion Assessment & Plan: -xrays unremarkable for acute changes, degenerative joint disease noted, L tibia hardware intact, no loosening -ice and elevate prn -continue PT/OT -above d/w Dr. Block in agreement Status: Acute
[2018-05-04] MEDS: Haloperidol Lactate 2 mg/ml Liquid PO PRN ×2 (17:16→23:08)
[2018-05-05] MEDS: Enoxaparin 40 mg Syringe SC SCH (08:36)
[2018-05-05] MEDS: Megestrol Acetate 40 mg/ml Cup PO SCH (08:36)
[2018-05-05] MEDS: Haloperidol Lactate 2 mg/ml Liquid PO PRN (21:40)
[2018-05-06] MEDS: Megestrol Acetate 40 mg/ml Cup PO SCH (08:53)
[2018-05-06] MEDS: Enoxaparin 40 mg Syringe SC SCH (08:53)
--- NOTE | 2018-05-06 09:31 | CP.PCM.PN ---
Subjective - Date & Time of Evaluation Date of Evaluation: 05/06/18 Time of Evaluation: 08:00 - Subjective Subjective: Patient seen and examined at bedside comfortable. No complaints of pain. No other complaints. Objective - Vital Signs/Intake and Output Vital Signs (last 24 hours): Temp Pulse Resp BP Pulse Ox 98.4 F 63 18 144/77 97 05/06/18 08:30 05/06/18 08:30 05/06/18 08:30 05/06/18 08:30 05/06/18 08:30 - Medications Medications: Current Medications Acetaminophen (Tylenol 325mg Tab) 650 mg PO QPM [facility] Last Admin: 05/05/18 17:07 Dose: 650 mg Acetaminophen (Tylenol 325mg Tab) 650 mg PO Q6 PRN PRN Reason: Pain, Mild (1-3) Last Admin: 05/05/18 00:26 Dose: 650 mg Clotrimazole (Lotrimin 1% Cream) 1 applic TOP BID [facility] Last Admin: 05/06/18 08:52 Dose: 1 applic Cyclobenzaprine HCl (Flexeril) 5 mg PO Q12 [facility] Last Admin: 04/10/18 09:27 Dose: 5 mg Donepezil HCl (Aricept) 10 mg PO HS [facility] Last Admin: 05/05/18 21:06 Dose: 10 mg Enoxaparin Sodium (Lovenox) 40 mg SC DAILY [facility]; Protocol Last Admin: 05/06/18 08:53 Dose: 40 mg Famotidine (Pepcid) 20 mg PO BID [facility] Last Admin: 05/06/18 08:53 Dose: 20 mg Haloperidol Lactate (Haldol) 0.5 mg PO Q6 PRN PRN Reason: Agitation Last Admin: 05/05/18 21:40 Dose: 0.5 mg Megestrol Acetate (Megace) 400 mg PO DAILY [facility] Last Admin: 05/06/18 08:53 Dose: 400 mg Memantine (Namenda) 5 mg PO DAILY [facility] Last Admin: 05/06/18 08:53 Dose: 5 mg Risperidone (Risperdal Tab) 0.5 mg PO Q12 [facility] Last Admin: 05/06/18 08:53 Dose: 0.5 mg - Labs Labs: 04/27/18 05:55 04/26/18 18:40 PT 9.9 Seconds (9.8-13.1) 04/26/18 13:47 INR 0.9 04/26/18 13:47 APTT 25.5 Seconds (25.6-37.1) L 04/26/18 13:47 - Extremities Exam Additional comments: L hip: no tenderness at groin Hip incision well healed sensation intact SP/DP/TN motor intact EHL/FHL/TA/G pedal pulses intact calves soft NT b/l L knee: mild swelling, no ecchymosis, no lesions, no deformity valgus alignment gross NVI no tenderness R knee mild swelling, no ecchymosis, no lesions, no deformity valgus alignment gross NVI no tenderness with palpation Assessment and Plan (1) Pubic ramus fracture Assessment & Plan: -placement pending -PT/OT PWB with assistive device -DVT ppx -orthopedically stable -above d/w Dr. Block in agreement Status: Acute (2) Knee contusion Status: Inactive
[2018-05-06] MEDS: Haloperidol Lactate 2 mg/ml Liquid PO PRN (22:40)
--- NOTE | 2018-05-07 08:11 | CP.PCM.PN ---
Subjective - Date & Time of Evaluation Date of Evaluation: 05/07/18 Time of Evaluation: 07:30 - Subjective Subjective: Patient seen and examined at bedside comfortable. Pain well controlled. No new complaints. Objective - Vital Signs/Intake and Output Vital Signs (last 24 hours): Temp Pulse Resp BP Pulse Ox 98.1 F 76 18 99/69 L 97 05/07/18 00:13 05/07/18 00:13 05/07/18 00:13 05/07/18 00:13 05/07/18 00:13 - Medications Medications: Current Medications Acetaminophen (Tylenol 325mg Tab) 650 mg PO QPM [facility] Last Admin: 05/06/18 17:17 Dose: 650 mg Acetaminophen (Tylenol 325mg Tab) 650 mg PO Q6 PRN PRN Reason: Pain, Mild (1-3) Last Admin: 05/05/18 00:26 Dose: 650 mg Clotrimazole (Lotrimin 1% Cream) 1 applic TOP BID [facility] Last Admin: 05/06/18 17:14 Dose: 1 applic Cyclobenzaprine HCl (Flexeril) 5 mg PO Q12 [facility] Last Admin: 04/10/18 09:27 Dose: 5 mg Donepezil HCl (Aricept) 10 mg PO HS [facility] Last Admin: 05/05/18 21:06 Dose: 10 mg Enoxaparin Sodium (Lovenox) 40 mg SC DAILY [facility]; Protocol Last Admin: 05/06/18 08:53 Dose: 40 mg Famotidine (Pepcid) 20 mg PO BID [facility] Last Admin: 05/06/18 17:14 Dose: 20 mg Haloperidol Lactate (Haldol) 0.5 mg PO Q6 PRN PRN Reason: Agitation Last Admin: 05/06/18 22:40 Dose: 0.5 mg Megestrol Acetate (Megace) 400 mg PO DAILY [facility] Last Admin: 05/06/18 08:53 Dose: 400 mg Memantine (Namenda) 5 mg PO DAILY [facility] Last Admin: 05/06/18 08:53 Dose: 5 mg Risperidone (Risperdal Tab) 0.5 mg PO Q12 [facility] Last Admin: 05/06/18 08:53 Dose: 0.5 mg - Labs Labs: 04/27/18 05:55 04/26/18 18:40 PT 9.9 Seconds (9.8-13.1) 04/26/18 13:47 INR 0.9 04/26/18 13:47 APTT 25.5 Seconds (25.6-37.1) L 04/26/18 13:47 - Extremities Exam Additional comments: L hip: no tenderness at groin Hip incision well healed sensation intact SP/DP/TN motor intact EHL/FHL/TA/G pedal pulses intact calves soft NT b/l Assessment and Plan (1) Pubic ramus fracture Assessment & Plan: -PT/OT PWB, refused ambulation yesterday, encouraged once again -DVT ppx -orthopedically stable -above d/w Dr. Block in agreement Status: Acute
[2018-05-07] MEDS: Enoxaparin 40 mg Syringe SC SCH (10:04)
[2018-05-07] MEDS: Megestrol Acetate 40 mg/ml Cup PO SCH (10:05)
[2018-05-07 12:48] VITALS: BP 143/82; PULSE 75; RESP 20; TEMP 98
[2018-05-07 13:12] VITALS: O2SAT 96
== END 2018-05-07 15:30 | DRG 536 ==
LOC: H.ER 12:55 → H.ERHOLD 19:17 → H.MEDSURG1 22:05 → OBSVTOIN 04-07 12:04 → H.MEDSURG1 04-13 06:54
PROVIDERS: ADMIT Family Medicine; ATTEND Family Medicine
DX: S32.512A Fracture of superior rim of left pubis, initial encounter for closed fracture (principal); F01.51 Vascular dementia, unspecified severity, with behavioral disturbance; M97.02XA Periprosthetic fracture around internal prosthetic left hip joint, initial encounter; Z96.642 Presence of left artificial hip joint; S32.592A Other specified fracture of left pubis, initial encounter for closed fracture; Z85.3 Personal history of malignant neoplasm of breast; Z92.21 Personal history of antineoplastic chemotherapy; Z92.3 Personal history of irradiation; S80.00XA Contusion of unspecified knee, initial encounter; W06.XXXA Fall from bed, initial encounter; Z87.891 Personal history of nicotine dependence; Z88.5 Allergy status to narcotic agent; W01.0XXA Fall on same level from slipping, tripping and stumbling without subsequent striking against object, initial encounter; Y92.009 Unspecified place in unspecified non-institutional (private) residence as the place of occurrence of the external cause

== ENCOUNTER 2018-06-23 17:47 | Inpatient (IN) | payer MEDICARE, SELFPAY ==
[2018-06-23 17:48] VITALS: BMI 25.1
[2018-06-23 17:57] VITALS: O2SAT 100
--- NOTE | 2018-06-23 18:16 | ED PDOC ---
HPI: Psych/Substance Abuse Time Seen by Provider: 06/23/18 18:15 Chief Complaint (Nursing): Psychiatric Evaluation Chief Complaint (Provider): psych eval History Per: Patient (77 y/o female h/o Dementia sent from [facility] for evaluation of emotional behavior with crying and intermittent agitation. Patient states she cannot stop herself from crying b/c she hasn't seen her daughter in a long while. ) Past Medical History Reviewed: Historical Data, Nursing Documentation, Vital Signs Vital Signs: Last Vital Signs Temp 98.4 F 06/23/18 17:52 Pulse 82 06/23/18 17:52 Resp 18 06/23/18 17:52 BP 126/78 06/23/18 17:52 Pulse Ox 100 06/23/18 17:52 - Medical History PMH: Dementia, Pneumonia Denies: HIV, Chronic Kidney Disease - Surgical History Surgical History: Cholecystectomy - Family History Family History: States: Unknown Family Hx - Home Medications Home Medications: Ambulatory Orders Medication Instructions Recorded Donepezil HCl [Aricept] 10 mg PO HS 11/15/17 Acetaminophen [Tylenol Arthritis] 650 mg PO QPM 02/11/18 Famotidine [Pepcid] 20 mg PO BID tab 05/07/18 Memantine [Namenda] 5 mg PO DAILY tab 05/07/18 risperiDONE [RisperDAL Tab] 0.5 mg PO Q12 tab 05/07/18 - Allergies Allergies/Adverse Reactions: Allergies Allergy/AdvReac Type Severity Reaction Status Date / Time narcotic Allergy RASH Uncoded 06/23/18 17:52 Review of Systems ROS Statement: Except As Marked, All Systems Reviewed And Found Negative Physical Exam - Reviewed Nursing Documentation Reviewed: Yes Vital Signs Reviewed: Yes - Physical Exam Appears: Positive for: Well, Non-toxic, No Acute Distress Head Exam: Positive for: ATRAUMATIC, NORMAL INSPECTION, NORMOCEPHALIC Skin: Positive for: Normal Color, Warm, DRY Eye Exam: Positive for: EOMI, Normal appearance, PERRL ENT: Positive for: Normal ENT Inspection Neck: Positive for: Normal, Painless ROM Cardiovascular/Chest: Positive for: Regular Rate, Rhythm Respiratory: Positive for: CNT, Normal Breath Sounds Gastrointestinal/Abdominal: Positive for: Normal Exam, Soft Back: Positive for: Normal Inspection Extremity: Positive for: Normal ROM Neurologic/Psych: Positive for: Alert, Oriented - Laboratory Results Result Diagrams: 06/23/18 18:53 06/23/18 18:53 - ECG O2 Sat by Pulse Oximetry: 100 - Progress ED Course And Treament: d/w dr. Chery. Patient has been emotionally labile x few days and despite changing medications by visiting psychiatrist has not improved. d/w patient's family and recommendation to be seen and admitted to [facility] for evaluation. POSSIBLE UTI NOTED. WILL SEND URINE CX. KEFLEX 500MG X 1 DOSE ORDERED CXR: 06/23/2018 HISTORY: routine COMPARISON: 03/21/2018 FINDINGS: LUNGS: No active pulmonary disease. PLEURA: No significant pleural effusion identified, no pneumothorax apparent. CARDIOVASCULAR: Atherosclerotic calcifications identified primarily aortic arch. Normal. OSSEOUS STRUCTURES: No significant abnormalities. Stable, healed posterior lateral left rib fractures. VISUALIZED UPPER ABDOMEN: Normal. OTHER FINDINGS: Large hiatal hernia. IMPRESSION: No active disease. Disposition - Clinical Impression Clinical Impression: UTI (urinary tract infection), Dementia - Patient ED Disposition Is Patient to be Admitted: Transfer of Care - Disposition Disposition: Transfer of Care Disposition Time: 20:00 Condition: FAIR Patient Signed Over To: Niru Kim Handoff Comments: PENDING CRISIS EVAL
--- NOTE | 2018-06-23 18:46 | RAD ---
Date of service: 06/23/2018 HISTORY: routine COMPARISON: 03/21/2018 FINDINGS: LUNGS: No active pulmonary disease. PLEURA: No significant pleural effusion identified, no pneumothorax apparent. CARDIOVASCULAR: Atherosclerotic calcifications identified primarily aortic arch. Normal. OSSEOUS STRUCTURES: No significant abnormalities. Stable, healed posterior lateral left rib fractures. VISUALIZED UPPER ABDOMEN: Normal. OTHER FINDINGS: Large hiatal hernia. IMPRESSION: No active disease.
[2018-06-23 18:58] LABS: BASO % 0.2 % (0.0-2.0); EOS # 0.1 K/uL (0.0-0.7); EOS % 0.9 % (0.0-4.0); HEMOGLOBIN 10.6 g/dL (12.0-16.0); LYMPH # 1.3 K/uL (1.0-4.3); LYMPH % 15.7 % (20.0-40.0); MEAN CELL VOLUME 90.2 fl (81.0-99.0); MEAN CORPUSCULAR HGB CONC 32.2 g/dL (33.0-37.0); MEAN PLATELET VOLUME 7.7 fl (7.2-11.7); MONO # 0.7 K/uL (0.0-0.8); MONO % 8.5 % (0.0-10.0); NEUT # 6.1 K/uL (1.8-7.0); NEUT % 74.7 % (50.0-75.0); RBC 3.65 Mil/uL (3.80-5.20); RED CELL DISTRIBUTION WIDTH 15.5 % (11.5-14.5); WHITE BLOOD COUNT 8.1 K/uL (4.8-10.8)
[2018-06-23 19:14] LABS: ALB/GLOB RATIO 0.9 (1.0-2.1); ALBUMIN 3.1 g/dL (3.5-5.0); ALT/SGPT 7 U/L (9-52); AST/SGOT 15 U/L (14-36); BLOOD UREA NITROGEN 18 mg/dl (7-17); CALCIUM 9.1 mg/dL (8.4-10.2); GFR NON-AFRICAN AMERICAN > 60
[2018-06-23 19:15] LABS: URINE BACTERIA RARE (<OCC); URINE BILIRUBIN NEGATIVE (NEGATIVE); URINE BLOOD MODERATE (NEGATIVE); URINE CLARITY SLIGHTY-CLOUDY (Clear); URINE COLOR YELLOW (YELLOW); URINE GLUCOSE (UA) NEG (NEGATIVE); URINE LEUKOCYTE ESTERASE TRACE Leu/uL (Negative); URINE PROTEIN NEGATIVE (NEGATIVE); URINE UROBILINOGEN 0.2-1.0 mg/dL (0.2-1.0)
[2018-06-23 19:17] LABS: INR 1.3; PROTHROMBIN TIME 14.3 Seconds (9.8-13.1)
[2018-06-23 19:19] LABS: PARTIAL THROMBOPLASTIN TIME 32.9 Seconds (25.6-37.1)
--- NOTE | 2018-06-23 23:55 | ED PDOC ---
- Laboratory Results Result Diagrams: 06/23/18 18:53 06/23/18 18:53 Lab Results: PT 14.3 Seconds (9.8-13.1) H 06/23/18 18:53 INR 1.3 06/23/18 18:53 APTT 32.9 Seconds (25.6-37.1) 06/23/18 18:53 Troponin I < 0.0120 ng/mL (0.00-0.120) 06/23/18 18:53 Total Bilirubin 0.2 mg/dl (0.2-1.3) 06/23/18 18:53 AST 15 U/L (14-36) 06/23/18 18:53 ALT 7 U/L (9-52) L D 06/23/18 18:53 Alkaline Phosphatase 111 U/L (38-126) 06/23/18 18:53 Total Protein 6.4 G/DL (6.3-8.2) 06/23/18 18:53 Albumin 3.1 g/dL (3.5-5.0) L 06/23/18 18:53 Globulin 3.3 gm/dL (2.2-3.9) 06/23/18 18:53 Albumin/Globulin Ratio 0.9 (1.0-2.1) L 06/23/18 18:53 Urine Color Yellow (YELLOW) 06/23/18 18:53 Urine Clarity Slighty-cloudy (Clear) 06/23/18 18:53 Urine pH 6.0 (5.0-8.0) 06/23/18 18:53 Ur Specific [place] 1.017 (1.003-1.030) 06/23/18 18:53 Urine Protein Negative mg/dL (NEGATIVE) 06/23/18 18:53 Urine Glucose (UA) Neg mg/dL (NEGATIVE) 06/23/18 18:53 Urine Ketones Negative mg/dL (NEGATIVE) 06/23/18 18:53 Urine Blood Moderate (NEGATIVE) 06/23/18 18:53 Urine Nitrate Negative (NEGATIVE) 06/23/18 18:53 Urine Bilirubin Negative (NEGATIVE) 06/23/18 18:53 Urine Urobilinogen 0.2-1.0 mg/dL (0.2-1.0) 06/23/18 18:53 Ur Leukocyte Esterase Trace Guerita/uL (Negative) 06/23/18 18:53 Urine RBC (Auto) 16 /hpf (0-3) H 06/23/18 18:53 Urine Microscopic WBC 9 /hpf (0-5) H 06/23/18 18:53 Urine Bacteria Rare (<OCC) 06/23/18 18:53 - ECG O2 Sat by Pulse Oximetry: 100 - Progress ED Course And Treament: Case endorsed to specifications writer from [facility] pending crisis eval Patient evaluated by laboratory worker; to be admitted as per Dr. Keller Disposition - Clinical Impression Clinical Impression: UTI (urinary tract infection), Neurocognitive disorder - POA Present On Arrival: None - Disposition Disposition: Admitted as In-Patient Disposition Time: 23:55 Condition: STABLE Forms: [employer] ([place]i)
[2018-06-24] MEDS ORDERED: Magnesium Hydroxide Susp 30 ml UD PO PRN (02:33)
[2018-06-24] MEDS ORDERED: Alum-Mag Hydrox-Simethicone Susp (30 mL) PO PRN (02:33)
[2018-06-24] MEDS ORDERED: Bismuth Subsalicylate 262 mg/15 ml Sus (240 ml) PO PRN (02:33)
--- NOTE | 2018-06-24 03:22 | PCM.BM ---
<Enrique Adams - Last Filed: 06/24/18 03:19> Treatment Plan Problems - Problems identified on initial assessmt Agitated/aggressive behavior Date Initiated: 06/24/18 Time Initiated: 03:20 Assessment reference: NA Status: Active Ineffective Impulse Control Date Initiated: 06/24/18 Time Initiated: 03:20 Assessment reference: NA Status: Active Falls Risk Date Initiated: 06/24/18 Time Initiated: 03:20 Assessment reference: NA Status: Active Treatment assets and liabiliti Patient Assests: cooperative, good support system, negotiates basic needs Patient Liabilities: medical problems, imparied memory - Milieu Protocol Maintain good personal hygiene: every shift Encourage regular showers, every shift Remind patient to perform daily oral care, every shift Assist patient to perform ADL's Maintain personal safety: daily Educate patient to report safety concerns to staff, daily Monitor environment for contraband/sharps Medication safety: Monitor for expected outcome, potential side effects: daily, Assess barriers to learning: daily, Assess readiness for medication education: daily <Joana Stout - Last Filed: 06/25/18 07:58> Family Contact Family involvement: Family/SO is involved Family contact: Patient agrees to contact, Other (Pt's daughter is POA) - Outside Agency [facility], [facility] involvment: Following patient during stay Agency contact number: [phone] - Goals for Treatment Patient goals for treatment: Pt will improve overall mood. Pt will maintain positive behavior. Pt will be free of violant behavior. Pt requires frequent re- direction and prompting. Pt will be compliant with medications. Pt will attend clinical and activity groups. Discharge/Continuing Care - Education Needs Education Needs: Family Medication, Family Diagnosis/Disease Process, Family Coping Skills, Family Placement options, Family Community resources, Family Activities of Daily Living, Family Nutrition, Family Uses of Medical Equipment, Family Health Practices/Safety, Family Personal Hygiene/Grooming, Family Aftercare Safety Plan - Discharge Discharge Criteria: Tolerates medication w/o severe side effects, Free of agitation, Normal sleep pattern, Ability to care for self, Reduction of target symptoms Discharge to:: [facility] (Pt is a resident at [facility]) - Additional Comments 06/25/18 08:00 LATE ENTRY FROM 06/24/2018: Pt discussed in team meeting. Pt was referred to the ED by [facility] due to increased agitation, screaming, and yelling bx's at the family. Pt is dx with dementia and s/p hip fracture. Pt verbally abusive towards staff members at the facility. Pt unable to attend team meeting; observed to be resting at that time. Pt's medications reviewed and discussed. Pt's social and medical issues reviewed. SW to contact daughter and sending facility for collateral information. - Treatment Team Participation Discussed with Family/SO: No Was Patient/Family/SO present at Treatment Team Meeting: No <Stephanie Garzon - Last Filed: 06/29/18 07:31> - Diagnosis (1) Dementia with behavioral disturbance Status: Acute Interventions: Medication management, Individual and group therapy, Psychoeducation 06/29/18 07:31
[2018-06-24 07:04] LABS: LDL CHOLESTEROL 74 mg/dL (0-129)
[2018-06-24 07:05] LABS: BLOOD UREA NITROGEN 16 mg/dl (7-17); CALCIUM 9.5 mg/dL (8.4-10.2); GFR NON-AFRICAN AMERICAN > 60; HDL CHOLESTEROL 59 MG/DL (30-70)
[2018-06-24 07:17] LABS: IRON 41 ug/dL (37-170)
[2018-06-24 07:27] LABS: % IRON SATURATION 14 % (20-55); TOTAL IRON BINDING CAPACITY 289 ug/dL (250-450)
--- NOTE | 2018-06-24 09:04 | CARD ---
APPROVED REPORT Date of service: 06/23/2018 EKG Measurement Heart [id number] <Conclusion> Normal sinus rhythm Normal ECG
[2018-06-24 12:43] LABS: FOLATE 10.9 ng/mL
--- NOTE | 2018-06-24 14:21 | CP.PCM.CON ---
<Niru Genao - Last Filed: 06/24/18 15:34> History of Present Illness - History of Present Illness History of Present Illness: CC: "I have to go to the bathroom a lot" 77 year old female patient, with PMHx of dementia and breast cancer, seen and evaluated in psych. Patient states that she has to go to the bathroom a lot, especially during the middle of the night. Patient reports pain with urination. Patient denies nausea/vomiting/fever/shortness of breath. Unable to obtain full history secondary to patients history of dementia. History obtained from chart. PMHx: Dementia, Breast cancer PSHx: Cholecystectomy SHx: Resident of [facility] ALL: Tramadol Review of Systems - Constitutional Constitutional: As Per HPI - EENT Eyes: As Per HPI - Cardiovascular Cardiovascular: As Per HPI - Respiratory Respiratory: As Per HPI. absent: Wheezing - Genitourinary Genitourinary: Urinary Urgency - Musculoskeletal Musculoskeletal: As Per HPI - Integumentary Integumentary: As Per HPI - Neurological Neurological: As Per HPI - Psychiatric Psychiatric: Confusion - Endocrine Endocrine: As Per HPI - Hematologic/Lymphatic Hematologic: As Per HPI Past Patient History - Infectious Disease Hx of Infectious Diseases: None - Past Medical History & Family History Past Medical History?: Yes - Past Social History Smoking Status: Former Smoker - CARDIAC Hx Cardiac Disorders: No Hx Hypertension: No - PULMONARY Hx Tuberculosis: No - NEUROLOGICAL HX Cerebrovascular Accident: No Hx Seizures: No - HEENT Hx HEENT Problems: No - RENAL Hx Chronic Kidney Disease: No - ENDOCRINE/METABOLIC Hx Endocrine Disorders: No - HEMATOLOGICAL/ONCOLOGICAL Hx Cancer: Yes (breast cancer survivor.) Hx Human Immunodeficiency Virus (HIV): No - INTEGUMENTARY Hx Dermatological Problems: No - MUSCULOSKELETAL/RHEUMATOLOGICAL Hx Musculoskeletal Disorders: Yes Hx Falls: Yes Hx Osteoarthritis: Yes - GASTROINTESTINAL Hx Gastrointestinal Disorders: No - GENITOURINARY/GYNECOLOGICAL Hx Sexually Transmitted Disorders: No - PSYCHIATRIC Hx Depression: Yes Hx Substance Use: No - SURGICAL HISTORY Hx Cholecystectomy: Yes - ANESTHESIA Hx Anesthesia: Yes Hx Anesthesia Reactions: No Hx Malignant Hyperthermia: No Meds Allergies/Adverse Reactions: Allergies Allergy/AdvReac Type Severity Reaction Status Date / Time tramadol Allergy unknown Verified 06/24/18 02:05 narcotic Allergy RASH Uncoded 06/23/18 17:52 - Medications Medications: Current Medications Acetaminophen (Tylenol 325mg Tab) 650 mg PO Q4 PRN PRN Reason: Pain, moderate (4-7) Al Hydrox/Mg Hydrox/Simethicone (Maalox Plus 30 Ml) 30 ml PO Q4 PRN PRN Reason: Dyspepsia Bismuth Subsalicylate (Pepto-Bismol) 524 mg PO Q4 PRN PRN Reason: Diarrhea Cephalexin Monohydrate (Keflex) 500 mg PO TID [facility]; Protocol Stop: 06/26/18 17:01 Last Admin: 06/24/18 12:23 Dose: 500 mg Lorazepam (Ativan) 0.5 mg PO HS PRN PRN Reason: Insomnia Stop: 07/08/18 02:34 Lorazepam (Ativan) 0.5 mg PO Q6 PRN PRN Reason: Anixety/Agitation Stop: 07/08/18 02:34 Magnesium Hydroxide (Milk Of Magnesia) 30 ml PO HS PRN PRN Reason: Constipation Physical Exam - Constitutional Appears: Non-toxic, No Acute Distress - Head Exam Head Exam: ATRAUMATIC, NORMOCEPHALIC - Eye Exam Eye Exam: Normal appearance Pupil Exam: NORMAL ACCOMODATION - ENT Exam ENT Exam: Mucous Membranes Moist - Respiratory Exam Respiratory Exam: Clear to Auscultation Bilateral - Cardiovascular Exam Cardiovascular Exam: REGULAR RHYTHM - GI/Abdominal Exam GI & Abdominal Exam: Normal Bowel Sounds, Soft. absent: Tenderness - Extremities Exam Extremities exam: Negative for: calf tenderness - Back Exam Back exam: NORMAL INSPECTION. absent: CVA tenderness (L), CVA tenderness (R) - Neurological Exam Neurological exam: Alert - Psychiatric Exam Psychiatric exam: Normal Affect, Normal Mood - Skin Skin Exam: Warm Results - Vital Signs Recent Vital Signs: Last Vital Signs Temp 97.5 F L 06/24/18 06:00 Pulse 61 06/24/18 06:00 Resp 20 06/24/18 06:00 BP 153/84 H 06/24/18 06:00 Pulse Ox 100 06/24/18 01:29 - Labs Result Diagrams: 06/23/18 18:53 06/24/18 05:30 Labs: Laboratory Results - last 24 hr 06/23/18 06/23/18 06/23/18 18:53 18:53 18:53 WBC 8.1 RBC 3.65 L Hgb 10.6 L Hct 32.9 L MCV 90.2 MCH 29.0 MCHC 32.2 L RDW 15.5 H Plt Count 250 MPV 7.7 Neut % (Auto) 74.7 Lymph % (Auto) 15.7 L [place] % (Auto) 8.5 Eos % (Auto) 0.9 Baso % (Auto) 0.2 Neut # (Auto) 6.1 Lymph # (Auto) 1.3 [place] # (Auto) 0.7 Eos # (Auto) 0.1 Baso # (Auto) 0.0 PT 14.3 H INR 1.3 APTT 32.9 Sodium 138 Potassium 4.2 Chloride 105 Carbon Dioxide 23 Anion Gap 14 BUN 18 H Creatinine 0.6 L Est GFR ( Amer) > 60 Est GFR (Non-Af Amer) > 60 Random Glucose 131 H Hemoglobin A1c Calcium 9.1 Iron TIBC % Saturation Total Bilirubin 0.2 AST 15 ALT 7 L D Alkaline Phosphatase 111 Troponin I < 0.0120 Total Protein 6.4 Albumin 3.1 L Globulin 3.3 Albumin/Globulin Ratio 0.9 L Triglycerides Cholesterol LDL Cholesterol Direct HDL Cholesterol Vitamin B12 Folate Free T4 Thyroxine (T4) TSH 3rd Generation Urine Color Urine Clarity Urine pH Ur Specific [place] Urine Protein Urine Glucose (UA) Urine Ketones Urine Blood Urine Nitrate Urine Bilirubin Urine Urobilinogen Ur Leukocyte Esterase Urine RBC (Auto) Urine Microscopic WBC Urine Bacteria 06/23/18 06/24/18 06/24/18 18:53 05:30 05:30 WBC RBC Hgb Hct MCV MCH MCHC RDW Plt Count MPV Neut % (Auto) Lymph % (Auto) [place] % (Auto) Eos % (Auto) Baso % (Auto) Neut # (Auto) Lymph # (Auto) [place] # (Auto) Eos # (Auto) Baso # (Auto) PT INR APTT Sodium 139 Potassium 4.0 Chloride 101 Carbon Dioxide 31 H Anion Gap 11 BUN 16 Creatinine 0.6 L Est GFR ( Amer) > 60 Est GFR (Non-Af Amer) > 60 Random Glucose 86 Hemoglobin A1c Calcium 9.5 Iron 41 TIBC 289 % Saturation 14 L Total Bilirubin AST ALT Alkaline Phosphatase Troponin I Total Protein Albumin Globulin Albumin/Globulin Ratio Triglycerides 54 Cholesterol 152 LDL Cholesterol Direct 74 HDL Cholesterol 59 Vitamin B12 492 Folate 10.9 Free T4 Thyroxine (T4) 8.09 TSH 3rd Generation 2.03 Urine Color Yellow Urine Clarity Slighty-cloudy Urine pH 6.0 Ur Specific [place] 1.017 Urine Protein Negative Urine Glucose (UA) Neg Urine Ketones Negative Urine Blood Moderate Urine Nitrate Negative Urine Bilirubin Negative Urine Urobilinogen 0.2-1.0 Ur Leukocyte Esterase Trace Urine RBC (Auto) 16 H Urine Microscopic WBC 9 H Urine Bacteria Rare 06/24/18 06/24/18 05:30 05:30 WBC RBC Hgb Hct MCV MCH MCHC RDW Plt Count MPV Neut % (Auto) Lymph % (Auto) [place] % (Auto) Eos % (Auto) Baso % (Auto) Neut # (Auto) Lymph # (Auto) [place] # (Auto) Eos # (Auto) Baso # (Auto) PT INR APTT Sodium Potassium Chloride Carbon Dioxide Anion Gap BUN Creatinine Est GFR ( Amer) Est GFR (Non-Af Amer) Random Glucose Hemoglobin A1c 5.8 Calcium Iron TIBC % Saturation Total Bilirubin AST ALT Alkaline Phosphatase Troponin I Total Protein Albumin Globulin Albumin/Globulin Ratio Triglycerides Cholesterol LDL Cholesterol Direct HDL Cholesterol Vitamin B12 Folate Free T4 1.20 Thyroxine (T4) TSH 3rd Generation Urine Color Urine Clarity Urine pH Ur Specific [place] Urine Protein Urine Glucose (UA) Urine Ketones Urine Blood Urine Nitrate Urine Bilirubin Urine Urobilinogen Ur Leukocyte Esterase Urine RBC (Auto) Urine Microscopic WBC Urine Bacteria Assessment & Plan - Assessment and Plan (Free Text) Assessment: 77 year old female patient, with PMHx of dementia and breast cancer, admitted for dementia with continued agitation and UTI Plan: 1. Urinary tract infection - Acute - Afebrile, WBC 8.1 - UA: RBC 16, WBC 9, nitrate negative - C/w Keflex 500mg TID - F/U Ucx 2. Dementia - Chronic - Management per psych - Date & Time Date: 06/24/18 Time: 14:39 <Bekah Piña - Last Filed: 06/25/18 09:09> Meds - Medications Medications: Current Medications Acetaminophen (Tylenol 325mg Tab) 650 mg PO Q4 PRN PRN Reason: Pain, moderate (4-7) Al Hydrox/Mg Hydrox/Simethicone (Maalox Plus 30 Ml) 30 ml PO Q4 PRN PRN Reason: Dyspepsia Bismuth Subsalicylate (Pepto-Bismol) 524 mg PO Q4 PRN PRN Reason: Diarrhea Cephalexin Monohydrate (Keflex) 500 mg PO TID [facility]; Protocol Stop: 06/26/18 17:01 Last Admin: 06/25/18 08:49 Dose: 500 mg Donepezil HCl (Aricept) 10 mg PO HS [facility] Last Admin: 06/24/18 21:27 Dose: 10 mg Escitalopram Oxalate (Lexapro) 5 mg PO DAILY [facility] Last Admin: 06/25/18 08:49 Dose: 5 mg Lorazepam (Ativan) 0.5 mg PO HS PRN PRN Reason: Insomnia Stop: 07/08/18 02:34 Lorazepam (Ativan) 0.5 mg PO Q6 PRN PRN Reason: Anixety/Agitation Stop: 07/08/18 02:34 Last Admin: 06/24/18 10:00 Dose: 0.5 mg Magnesium Hydroxide (Milk Of Magnesia) 30 ml PO HS PRN PRN Reason: Constipation Memantine (Namenda) 5 mg PO Q12 [facility] Last Admin: 06/25/18 08:49 Dose: 5 mg Risperidone (Risperdal Tab) 1 mg PO Q12 [facility] Last Admin: 06/25/18 08:49 Dose: 1 mg Results - Vital Signs Recent Vital Signs: Last Vital Signs Temp 97.6 F 06/24/18 15:48 Pulse 68 06/24/18 15:48 Resp 18 06/24/18 15:48 BP 126/83 06/24/18 15:48 Pulse Ox 100 06/24/18 01:29 - Labs Result Diagrams: 06/23/18 18:53 06/24/18 05:30 Labs: Laboratory Results - last 24 hr 06/24/18 06/24/18 06/24/18 05:30 05:30 05:30 Hemoglobin A1c 5.8 Folate 10.9 RPR Nonreactive Attending/Attestation - Attestation I have personally seen and examined this patient.: Yes I have fully participated in the care of the patient.: Yes I have reviewed all pertinent clinical information: Yes Notes (Text): 06/25/18 09:09 Agree with findings and plan as above.
--- NOTE | 2018-06-24 19:07 | PCM.PSYCH ---
Initial Psychiatric Evaluation - Initial Psychiatric Evaluation Chief Complaint (in patient's own words): Pt. referred from [facility] for changes in behavior, agitated admitted via [facility] -pt has poa-pt is dnr Patient's Reaction to Hospitalization: pt has poa who signed pt in for admission History of Present Illness and Precipitating Events: pt presented to [facility] via [facility] after pt began exhibiting increased changes in behavior and agitation. pt was admitted to [facility] approx 2 months ago after was deemed no longer could care for self 2nd memory impairment. pt was assigned POA. Current Medications: Active Medications Generic Name Dose Route Start Last Admin Trade Name Freq PRN Reason Stop Dose Admin Acetaminophen 650 mg 06/24/18 02:33 Tylenol 325mg Tab PO Q4 PRN Pain, moderate (4-7) Al Hydrox/Mg Hydrox/Simethicone 30 ml 06/24/18 02:33 Maalox Plus 30 Ml PO Q4 PRN Dyspepsia Bismuth Subsalicylate 524 mg 06/24/18 02:33 Pepto-Bismol PO Q4 PRN Diarrhea Cephalexin Monohydrate 500 mg 06/24/18 09:00 06/24/18 16:43 Keflex PO 06/26/18 17:01 500 mg TID MELI Administration Protocol Donepezil HCl 10 mg 06/24/18 22:00 Aricept PO HS MELI Escitalopram Oxalate 5 mg 06/25/18 09:00 Lexapro PO DAILY MELI Lorazepam 0.5 mg 06/24/18 02:33 Ativan PO 07/08/18 02:34 HS PRN Insomnia Lorazepam 0.5 mg 06/24/18 02:33 06/24/18 10:00 Ativan PO 07/08/18 02:34 0.5 mg Q6 PRN Administration Anixety/Agitation Magnesium Hydroxide 30 ml 06/24/18 02:33 Milk Of Magnesia PO HS PRN Constipation Memantine 5 mg 06/24/18 21:00 Namenda PO Q12 MELI Risperidone 1 mg 06/24/18 21:00 Risperdal Tab PO Q12 MELI Past Psychiatric History - Past Psychiatric History Prior Professional Help: no prior reported psychiatric treatment per records(pt poor historian) Pertinent Medical Hx (Current Medical&Sleep Prob, Allergies): Allergies Allergy/AdvReac Type Severity Reaction Status Date / Time tramadol Allergy unknown Verified 06/24/18 02:05 narcotic Allergy RASH Uncoded 06/23/18 17:52 Acetaminophen [Tylenol 325mg tab] 650 mg PO Q6 PRN 06/24/18 Donepezil [Aricept] 10 mg PO HS 06/24/18 Escitalopram Oxalate [Lexapro] 5 mg PO DAILY 06/24/18 Famotidine [Pepcid] 20 mg PO DAILY 06/24/18 Megestrol Acetate [Megace] 400 mg PO DAILY 06/24/18 Memantine [Namenda] 5 mg PO Q12 06/24/18 Rivaroxaban [Xarelto] 20 mg PO DAILY 06/24/18 risperiDONE [RisperDAL Tab] 1 tab PO Q12 06/24/18 Review of Systems - Psychiatric Psychiatric: Irritability, Memory Loss, Paranoia Mental Status Examination - Personal Presentation Personal Presentation: Looks stated age - Affect Affect: Constricted - Motor Activity Motor Activity: Psychomotor Agitation - Reliability in Providing Information Reliability in Providing Information: Poor, due to alteration in thoughts, Poor, due to cognitve impairment - Speech Speech: Disorganized - Mood Mood: Anxious Additional comments: at times calling out for marianela Griffin - Formal Thought Process Formal Thought Process: Paranoia - Cognitive Functions Orientation: Person Attention/Concentration: Easily distracted Judgement: Imparied, as evidence by: Poor judgement, Imparied, as evidence by: Lack of insight into illness Memory: Recent impaired, as evidenced by: Other (oriented to person only cannot give details related to any past hx) DSM 5 DX - DSM 5 DSM 5 Diagnosis: Dementia with behavioral changes Delirium 2nd UTI Depression with psychosis mood cognition changes ?2nd to underlying general medical condition: ?anemia, dehydration, elevated glucose, decreased albumin, urine rbc/wbc's - Recommended/Plan of Treatment Treatment Recommendations and Plan of Treatment: inpt adm per attending vital signs and clinical observation per protocol and per clinical status-pt r eportedly was [facility] to [facility] approx. 2 months ago?changes 2nd new environment prns per unit protocol hospitalist consult-any potential underlying conditions restart medications (previous) adjust per clinical status (care 2nd pt's age, underlying health status)-pt is dnr and has poa discharge planning in progress Projected ELOS: 5-7 days Prognosis: guarded Discharge Plan and Discharge Criteria: safety - Smoking Cessation Smoking Cessation Initiated: No Reason for not providing: not abilicable
--- NOTE | 2018-06-25 18:24 | PCM.PYCHPN ---
Psychiatric Progress Note - Psychiatric Progress Note Patient seen today, length of contact: chart reviewed case discussed with rosemary, pt seen Patient Chief Complaint: alteration in cognition, alteration in mood Problems Identified/Issues Discussed: pt at times yelling crying not making sense pt did not respond to clinical redirection, paranoid ordered risperdal mtab 0.25mg po x one dose. staff to marybeth to monitor Medical Problems: per chart Diagnostic Results: per psychiatry per medicine per nursing per social work per recreational therapy DSM 5 Symptoms Update: pt being treated for uti by medicine will continue to assess pt for cognitive status and adjust medicine per clinical status Medication Change: No Medical Record Reviewed: Yes Consults ordered or reviewed: pt being followed by medical team Mental Status Examination - Cognitive Function Orientation: Person Attention: Poor Concentration: Poor Association: Loose Fund of Knowledge: Poor Decription of patient's judgement and insights: poor - Mood Mood: Anxious Additional comments: at times - Affect Additional comments: varied at times calm, at times crying out for daughter, - Formal Thought Process Formal Thought Process: Paranoia - Homicidal Ideation Homicidal Ideation: No Goal/Treatment Plan - Goal/Treatment Plan Need for Continued Stay: Remain at risks for inpatient hospitalization, Discharge may exacerbated symptoms, Failed transitioning, Severe functional impairment Progress Toward Problem(s) and Goals/Treatment Plan: inpt milieu adjust meds per clinical status vital signs/clinical observation per protocol and clinical status-pt receiving prn(can receive) team to assess-can adjust standing rx accordingly-due to pt's underlying condition/age caution with use of antipsychotics /benzodiazepines etc- pt's qtc on admission was 380ms hob elevated with po intake, falls precautions, skin precautions discharge planning in progress Estimated Date of D/C: 07/02/18 If changed, why: safety - Smoking Cessation Smoking Cessation Initiated: No Reason for not providing: not applicable pt does not smoke
[2018-06-26] MEDS ORDERED: RISPERIDONE 0.25 MG ODT PO ONE (19:00)
--- NOTE | 2018-06-26 22:15 | PCM.PYCHPN ---
Psychiatric Progress Note - Psychiatric Progress Note Patient seen today, length of contact: chart reviewed case discussed with rosemary, pt seen Patient Chief Complaint: alteration in cognition, alteration in mood- yelling at times, crying at times, somewhat less no prns administered in last 24 hours Problems Identified/Issues Discussed: somewhat less labile continues to be confused Medical Problems: per chart Diagnostic Results: per psychiatry per medicine per nursing per social work per recreational therapy DSM 5 Symptoms Update: somewhat less labile continues to confused being treated for uti by medicine Medication Change: No Medical Record Reviewed: Yes Consults ordered or reviewed: pt being followed by medical team Mental Status Examination - Cognitive Function Orientation: Person Attention: Poor Concentration: Poor Association: Loose Fund of Knowledge: Poor Decription of patient's judgement and insights: poor - Mood Mood: Anxious - Affect Affect: Constricted - Formal Thought Process Formal Thought Process: Paranoia - Homicidal Ideation Homicidal Ideation: No Goal/Treatment Plan - Goal/Treatment Plan Need for Continued Stay: Remain at risks for inpatient hospitalization, Discharge may exacerbated symptoms, Failed transitioning, Severe functional impairment Progress Toward Problem(s) and Goals/Treatment Plan: inpt milieu adjust meds per clinical status vital signs/clinical observation per protocol and clinical status-pt receiving prn(can receive) team to assess-can adjust standing rx accordingly-due to pt's underlying condition/age caution with use of antipsychotics /benzodiazepines etc- pt's qtc on admission was 380ms hob elevated with po intake, falls precautions, skin precautions discharge planning in progress Estimated Date of D/C: 07/02/18 - Smoking Cessation Smoking Cessation Initiated: No
--- NOTE | 2018-06-27 10:06 | PCM.PYCHPN ---
Psychiatric Progress Note - Psychiatric Progress Note Patient seen today, length of contact: chart reviewed case discussed with rosemary pt seen Patient Chief Complaint: pt has remained intermittently very irritible and lAbile and crying all the time.pt has been very anxious and worried about her children .pt is provided reassurance but remains with poor insight and need further stabilization. Medication Change: Yes (add depakote 125 mg bid) Medical Record Reviewed: Yes Mental Status Examination - Cognitive Function Orientation: Person Attention: Poor Concentration: Poor Association: Loose Fund of Knowledge: Poor - Mood Mood: Anxious - Affect Affect: Constricted - Formal Thought Process Formal Thought Process: Paranoia - Homicidal Ideation Homicidal Ideation: No Goal/Treatment Plan - Goal/Treatment Plan Need for Continued Stay: Remain at risks for inpatient hospitalization, Discharge may exacerbated symptoms, Failed transitioning, Severe functional impairment Progress Toward Problem(s) and Goals/Treatment Plan: Will add depakote 125 mg bid to address the mood outbursts and titrate up by monitoring VPA levels. will engage pt jn therapy and unit ledy. Estimated Date of D/C: 07/02/18
[2018-06-27] MEDS: Divalproex 125 mg DR (BID formulation) PO SCH ×2 (13:31→18:58)
[2018-06-28] MEDS: Divalproex 125 mg DR (BID formulation) PO SCH ×2 (08:43→16:40)
--- NOTE | 2018-06-28 14:47 | PCM.PYCHPN ---
Psychiatric Progress Note - Psychiatric Progress Note Patient seen today, length of contact: chart reviewed case discussed with rosemary, pt seen Patient Chief Complaint: pt has been less labile and less irritible on meds and denies side effects and tolerates depakote well pt is still anxious and worried for her daughter. Medication Change: Yes (add depakote 125 mg bid) Medical Record Reviewed: Yes Mental Status Examination - Cognitive Function Orientation: Person Attention: Poor Concentration: Poor Association: Loose Fund of Knowledge: Poor - Mood Mood: Anxious - Affect Affect: Constricted - Formal Thought Process Formal Thought Process: Paranoia - Homicidal Ideation Homicidal Ideation: No Goal/Treatment Plan - Goal/Treatment Plan Need for Continued Stay: Remain at risks for inpatient hospitalization, Discharge may exacerbated symptoms, Failed transitioning, Severe functional impairment Progress Toward Problem(s) and Goals/Treatment Plan: Will continue to titrate meds and titrate up depakote if needed to stabilize the pt and engage pt in therapy and groups. Disposition as per primary psychiatrist. Estimated Date of D/C: 07/02/18
[2018-06-29] MEDS: Divalproex 125 mg DR (BID formulation) PO SCH ×2 (08:38→16:54)
--- NOTE | 2018-06-29 09:31 | PCM.PYCHPN ---
Psychiatric Progress Note - Psychiatric Progress Note Patient seen today, length of contact: Pt evaluated, case discussed w/ team, chart reviewed Patient Chief Complaint: Behavioral disturbances Problems Identified/Issues Discussed: Patient is less labile without any current behavioral disturbances. No current yelling or agitation towards others. She continues to be disoriented and does not know why she is in the hospital. Pt continues to have chronic neurocogni tive impairments. Medication Change: No Medical Record Reviewed: Yes Consults ordered or reviewed: Medicine consult Mental Status Examination - Cognitive Function Orientation: Person Memory: Impaired Attention: Poor Concentration: Poor Association: Loose Fund of Knowledge: Poor Decription of patient's judgement and insights: Chronic poor I/J due to dementia - Mood Mood: Anxious - Affect Affect: Constricted - Formal Thought Process Formal Thought Process: Loosening of associations Psychotic Thoughts and Behaviors: Denies acute AH/VH - Suicidal Ideation Suicidal Ideation: No - Homicidal Ideation Homicidal Ideation: No Goal/Treatment Plan - Goal/Treatment Plan Need for Continued Stay: Remain at risks for inpatient hospitalization, Discharge may exacerbated symptoms, Severe functional impairment Progress Toward Problem(s) and Goals/Treatment Plan: Dementia with behavioral disturbances; UTI -Continue current medications -Check VPA level -Medicine consult -Individual and group therapy -Psychoeducation Estimated Date of D/C: 07/01/18
[2018-06-30] MEDS: Divalproex 125 mg DR (BID formulation) PO SCH ×2 (08:00→16:22)
--- NOTE | 2018-06-30 08:28 | PCM.PYCHPN ---
Psychiatric Progress Note - Psychiatric Progress Note Patient seen today, length of contact: Pt evaluated, case discussed w/ team, chart reviewed Patient Chief Complaint: Behavioral disturbances, now improved Problems Identified/Issues Discussed: Patient continues to improve clinically. She is currently calm w/o any behavioral disturbances. No agitation/aggression/yelling/mood lability. Pt continues to have chronic neurocognitive impairments. Diagnostic Results: VPA 17.8 on 06/30/18 Medication Change: No Medical Record Reviewed: Yes Consults ordered or reviewed: Medicine consult Mental Status Examination - Cognitive Function Orientation: Person Memory: Impaired Attention: Poor Concentration: Poor Association: Loose Fund of Knowledge: Poor Decription of patient's judgement and insights: Chronic poor I/J due to dementia - Mood Mood: Anxious - Affect Affect: Broad - Formal Thought Process Formal Thought Process: Loosening of associations Psychotic Thoughts and Behaviors: Denies acute AH/VH - Suicidal Ideation Suicidal Ideation: No - Homicidal Ideation Homicidal Ideation: No Goal/Treatment Plan - Goal/Treatment Plan Need for Continued Stay: Severe functional impairment Progress Toward Problem(s) and Goals/Treatment Plan: Dementia with behavioral disturbances; UTI -Continue current medications -VPA 17.8 on 06/30/18 -Medicine consult -Individual and group therapy -Psychoeducation -Disposition planning- likely discharge tomorrow as patient is improving clinically Estimated Date of D/C: 07/01/18
--- NOTE | 2018-07-01 08:24 | PCM.PYCHDC ---
Mental Status Examination - Mental Status Examination Orientation: Person Memory: Impaired Mood: Neutral Affect: Broad Speech: Soft Attention: Poor Concentration: Poor Association: Loose Fund of Knowledge: Poor Formal Thought Process: Loosening of associations Description of patient's judgement and insight: Chronic poor I/J due to dementia Psychotic Thoughts and Behaviors: No AH/VH/paranoia/delusions Suicidal Ideation: No Current Homicidal Ideation?: No Discharge Summary - Discharge Note Reason for Hospitalization: CC: Agitation/behavioral disturbances HPI: 77 year old female patient, with PMHx of dementia and breast cancer, admitted w/ worsening agitation and behavioral disturbances. PMHx: Dementia, Breast cancer PSHx: Cholecystectomy SHx: Resident of [facility] ALL: Tramadol Laboratory Data: VPA 17.8 on 06.30.18 Consultations:: List each consultation separately and include: 1. Reason for request. 2. Findings. 3. Follow-up Consultations: Medicine consult- Patient completed treatment for UTI Summary of Hospital Course include:: 1. Description of specific treatment plan utilized for patients during their course of treatmen. 2. Summarize the time- course for resolution of acute symptoms and/or regressed behaviors. 3. Describe issues identified and worked on during hospitalization. 4. Describe medication utilized. 5. Describe medical problems identified and treated. 6. Reassessment of suicide risk Summary of Hospital Course: Patient was admitted to the psychiatry unit. She was seen by medicine consult and treated for a UTI. She was stabilized on Aricept 10 mg PO HS, Nemanda 5 mg PO Q12, Risperdal 1 mg PO Q12 and Depakote 125 mg PO BID (VPA 17.8 on 06/30/18). She is currently calm and cooperative without any acute behavioral disturbances. She is at her baseline of functioning and is psychiatrically stable for discharge at this time. - Diagnosis (1) Dementia with behavioral disturbance Current Visit: Yes Status: Acute - Final Diagnosis (DSM 5) Condition upon Discharge: STABLE DSM 5: Dementia with Behavioral Disturbances; UTI Disposition: TRANSF TO SNF Follow-up Treatment Plan: Dementia with behavioral disturbances, now improved; patient is at her baseline of functioning and is psychiatrically stable for discharge -Discharge back to shelter - Smoking Cessation Smoking Cessation Medication prescribed: No Reason for not providing: Not indicated - Antipsychotic Medications Pt discharged on 2 or more routine antipsychotic medications: No
[2018-07-01] MEDS: Divalproex 125 mg DR (BID formulation) PO SCH (10:22)
[2018-07-01 15:54] VITALS: BP 115/61; PULSE 77; RESP 18; TEMP 97
--- NOTE | 2018-07-02 08:46 | PCM.BM ---
Treatment Plan Problems - Problems identified on initial assessmt Agitated/aggressive behavior Date Initiated: 06/24/18 Time Initiated: 03:20 Assessment reference: NA Status: Active Ineffective Impulse Control Date Initiated: 06/24/18 Time Initiated: : Assessment reference: NA Status: Active Falls Risk Date Initiated: 06/24/18 Time Initiated: 03:20 Assessment reference: NA Status: Active Treatment assets and liabiliti Patient Assests: cooperative, good support system, negotiates basic needs Patient Liabilities: medical problems, imparied memory - Milieu Protocol Maintain good personal hygiene: every shift Encourage regular showers, every shift Remind patient to perform daily oral care, every shift Assist patient to perform ADL's Maintain personal safety: daily Educate patient to report safety concerns to staff, daily Monitor environment for contraband/sharps Medication safety: Monitor for expected outcome, potential side effects: daily, Assess barriers to learning: daily, Assess readiness for medication education: daily Milieu Narrative: Dementia with behavioral disturbances, now improved; patient is at her baseline of functioning and is psychiatrically stable for discharge -Discharge back to retirement Family Contact Family involvement: Family/SO is involved Family contact: Patient agrees to contact, Family has been contacted by patient, Telephone contact initiated by staff Family contact name: Jessica - daughter Family contacted how many times per week?: 2 Family contact comment: [phone] - Outside Agency [facility], [facility] involvment: Information-sharing Agency contact number: [phone] - Goals for Treatment Patient goals for treatment: Pt will improve overall mood. Pt will maintain positive behavior. Pt will be free of violant behavior. Pt requires frequent re- direction and prompting. Pt will be compliant with medications. Pt will attend clinical and activity groups. Discharge/Continuing Care - Education Needs Education Needs: Family Medication, Family Diagnosis/Disease Process, Family Coping Skills, Family Placement options, Family Community resources, Family Activities of Daily Living, Family Nutrition, Family Uses of Medical Equipment, Family Health Practices/Safety, Family Personal Hygiene/Grooming, Family Aftercare Safety Plan - Discharge Discharge Criteria: Tolerates medication w/o severe side effects, Free of agitation, Normal sleep pattern, Ability to care for self, Reduction of target symptoms Discharge to:: [facility] (Pt is a resident at [facility]) - Additional Comments 06/25/18 08:00 LATE ENTRY FROM 06/24/2018: Pt discussed in team meeting. Pt was referred to the ED by [facility] due to increased agitation, screaming, and yelling bx's at the family. Pt is dx with dementia and s/p hip fracture. Pt verbally abusive towards staff members at the facility. Pt unable to attend team meeting; observed to be resting at that time. Pt's medications reviewed and discussed. Pt's social and medical issues reviewed. SW to contact daughter and sending facility for collateral information. - Treatment Team Participation Patient/Family/SO Statement: Dementia with behavioral disturbances, now improved; patient is at her baseline of functioning and is psychiatrically stable for discharge -Discharge back to retirement Discussed with Family/SO: No Was Patient/Family/SO present at Treatment Team Meeting: No Treatment Plan Review - Problem Agitated/aggressive behavior Time Initiated: 03:20 Ineffective Impulse Control Time Initiated: 03:20 Falls Risk Time Initiated: 03:20 - Discharge / Continuing Care Discharge to:: [facility] Behavioral Health Services: Residential treatment Health Needs: Follow up care/test, Medications/Rx (Pt seen in treatment team for review on 07/01. Pt offered no questions or complaints and was informed that she will be going back to [facility] on 07/01. Pt is oriented X1 and daughter, Nichole, is POA. )
== END 2018-07-01 16:01 | DRG 884 ==
LOC: H.ER 17:47 → H.ERHOLD 23:54 → H.STEP 06-24 02:27
PROVIDERS: ADMIT Psychiatry & Neurology Psychiatry; ATTEND Psychiatry & Neurology Psychiatry
PROC: GZHZZZZ Group Psychotherapy (ICD-10-PCS; principal; 2018-06-23)
PROC: GZ58ZZZ Individual Psychotherapy, Cognitive-Behavioral (ICD-10-PCS; 2018-06-24)
DX: F03.91 Unspecified dementia, unspecified severity, with behavioral disturbance (principal); N39.0 Urinary tract infection, site not specified; F05 Delirium due to known physiological condition; F32.3 Major depressive disorder, single episode, severe with psychotic features; E86.0 Dehydration; R73.9 Hyperglycemia, unspecified; Z66 Do not resuscitate; Z85.3 Personal history of malignant neoplasm of breast; Z87.891 Personal history of nicotine dependence; Z87.01 Personal history of pneumonia (recurrent); Z88.5 Allergy status to narcotic agent